=== PATIENT | female | born 1935 | race Caucasian/White ===

== ENCOUNTER 2018-08-28 05:55 | Emergency (ER) | payer OTHER ==
[2018-08-28 06:42] LABS: Absolute Lymphocytes (CBC) 1.6 K/uL (0.7-4.9); Absolute Monocytes 0.7 K/uL (0.1-1.3); Absolute Neutrophil 4.5 K/uL (1.8-8.0); Basophils % 0.7 % (0-1.3); Eosinophils % 2.2 % (0-4.4); Lymphocytes % 22.4 % (15.3-44.8); MCH 34.4 pg (27.0-35.0); MCV 100.3 fL (80-100); MPV 7.8 fL (7.6-11.3); Monocytes % 10.5 % (3.3-12.3); RBC Red Blood Cell Count 3.88 M/uL (3.86-4.86)
[2018-08-28 06:51] LABS: Protime INR 1.03
[2018-08-28 07:12] LABS: ALT/SGPT 46 U/L (12-78); AST/SGOT 35 U/L (15-37); Albumin 3.3 g/dL (3.4-5.0); Alkaline Phosphatase 55 U/L (45-117); BUN Blood Urea Nitrogen 15 mg/dL (7-18); Bicarbonate 28 mmol/L (21-32); Bilirubin Direct 0.2 mg/dL (0-0.2); Bilirubin Total 0.6 mg/dL (0.2-1.0); Glucose Level 87 mg/dL (74-106); Magnesium 1.8 mg/dL (1.8-2.4); NT PRO-BNP 327 pg/mL (<450); Potassium 3.5 mmol/L (3.5-5.1); Protein, Total 6.2 g/dL (6.4-8.2); Sodium Level 143 mmol/L (136-145); Troponin (Emerg Dept Use Only) < 0.02 ng/mL (0.0-0.045)
--- NOTE | 2018-08-28 07:22 | ER ---
Nurse's Notes [facility] Name: Francy Griffiths Age: 83 yrs Sex: Female : 1935 Arrival Date: 08/28/2018 Time: 05:59 Bed 6 Private MD: Diagnosis: Essential (primary) hypertension;Hypoglycemia, unspecified Presentation: 08/28 06:04 Presenting complaint: EMS states: "she says she has been feeling week for the past day. jd3 her blood sugar was a 71 on arrival so she ate a chocolate bar. she says that below 120 is low for her surgar. she also is reporting that she is having some difficulty breathing. she denies any pain.". Transition of care: patient was not received from another setting of care. Onset of symptoms was August 28, 2018. Risk Assessment: Do you want to hurt yourself or someone else? Patient reports no desire to harm self or others. Initial Sepsis Screen: Does the patient meet any 2 criteria? No. Patient's initial sepsis screen is negative. Does the patient have a suspected source of infection? No. Patient's initial sepsis screen is negative. Care prior to arrival: Glucose check: 71. 06:04 Method Of Arrival: EMS: [facility] jd3 06:04 Acuity: DIONTE 3 jd3 Triage Assessment: 06:18 Respiratory: Onset: The symptoms/episode began/occurred yesterday, the patient has mild jd3 shortness of breath. Historical: - Allergies: 06:14 Iodine; jd3 06:14 Sulfa (Sulfonamide Antibiotics); jd3 06:14 Codeine; jd3 - Home Meds: 06:14 Folic Acid Oral [Active]; furosemide 40 mg Oral tab 1 tab 2 times per day [Active]; jd3 levothyroxine 100 mcg tab 1 tab once daily [Active]; Methotrexate Sodium Oral [Active]; prednisone 1 mg Oral tab 2 tabs once daily [Active]; pravastatin 40 mg Oral tab 1 tab once daily [Active]; Klor-Con M20 20 mEq Oral TbTQ 1 tab once daily [Active]; lisinopril 5 mg Oral tab 1 tab once daily [Active]; Mesnex Oral [Active]; Potassium Chloride Oral [Active]; - PMHx: 06:14 Arthritis; Rheumatoid Arthritis; Osteoporosis; Hypertension; Hyperlipidemia; jd3 Hypothyroidism; - PSHx: 06:14 abd sx; 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 - Social history:: Smoking status: Patient uses tobacco products, smokes one pack cigarettes per day. - Ebola Screening: : Patient negative for fever greater than or equal to 101.5 degrees Fahrenheit, and additional compatible Ebola Virus Disease symptoms. Screenin:17 Abuse screen: Denies threats or abuse. Nutritional screening: No deficits noted. jd3 Tuberculosis screening: No symptoms or risk factors identified. Fall Risk Ambulatory Aid- None/Bed Rest/Nurse Assist (0 pts). Gait- Weak (10 pts.). Mental Status- Oriented to own ability (0 pts). Total Lua Fall Scale indicates No Risk (0-24 pts). Assessment: 06:16 General: Appears in no apparent distress. uncomfortable, Behavior is calm, cooperative, jd3 appropriate for age. Pain: Denies pain. Cardiovascular: Capillary refill < 3 seconds Patient's skin is warm and dry. Rhythm is sinus bradycardia. Respiratory: Reports shortness of breath at rest Airway is patent Respiratory effort is even, unlabored, Respiratory pattern is regular, symmetrical, Breath sounds are clear bilaterally. GI: No signs and/or symptoms were reported involving the gastrointestinal system. : No signs and/or symptoms were reported regarding the genitourinary system. EENT: No signs and/or symptoms were reported regarding the EENT system. Derm: Skin is intact, Skin is dry, Skin is normal, Skin temperature is warm. Musculoskeletal: Circulation, motion, and sensation intact. Range of motion: intact in all extremities. 07:00 Reassessment: RECD REPORT FROM FRANK LINDSEY. 83YO WF P/W SUBJECTIVE HYPOGLYCEMIA. NOW bp DENIES ACUTE S/S. 07:29 Reassessment: PT D/C HOME VIA W/C WITH FAMILY, DX WITH HTN AND HYPOGLYCEMIA. bp Vital Signs: 06:15 BP 167 / 67; Pulse 47; Resp 17 S; Temp 97.9(O); Pulse Ox 98% on R/A; Weight 65.77 kg jd3 (R); Height 4 ft. 9 in. (144.78 cm) (R); Pain 0/10; 07:07 BP 187 / 58; Pulse 40; Resp 13; Pulse Ox 98% ; bp 06:15 Body Mass Index 31.38 (65.77 kg, 144.78 cm) jd3 ED Course: 05:59 Patient arrived in ED. 06:03 Dilan Luo, RN is Primary Nurse. jd3 06:07 Michael Montenegro PA is PHCP. jr8 06:07 Ruben Velázquez MD is Attending Physician. jr8 06:07 Triage completed. jd3 06:16 Arm band placed on. EKG completed in triage. Results shown to MD. jd3 06:18 Patient has correct armband on for positive identification. Bed in low position. Call j light in reach. Side rails up X2. Adult w/ patient. 06:18 Inserted saline lock: 20 gauge in left forearm, using aseptic technique. Blood oe collected. 06:41 X-ray completed. Portable x-ray completed in exam room. Patient tolerated procedure ag1 well. 06:41 XRAY Chest (1 view) In Process Unspecified. EDMS 07:30 No provider procedures requiring assistance completed. IV discontinued, intact, bp bleeding controlled, No redness/swelling at site. Pressure dressing applied. Administered Medications: No medications were administered Point of Care Testing: Blood Glucose: 06:21 Blood Glucose: 81 mg/dL; ea Ranges: Outcome: 07:21 Discharge ordered by . jr8 07:30 Discharged to home via wheelchair, with family. bp 07:30 Condition: stable 07:30 Discharge instructions given to patient, family, Instructed on discharge instructions, follow up and referral plans. Demonstrated understanding of instructions, follow-up care. 07:31 Patient left the ED. bp Signatures: Dispatcher [employer] EDMA Sheryl Coppola, RN CÉSAR Michael Montenegro PA PA jr8 Jeannine Willingham ag1 Boby Duval Elena, RN RN ea Davies, Jonathon, RN RN jd3 Peltier, Brian, RN RN bp Corrections: (The following items were deleted from the chart) 06:18 06:16 Cardiovascular: Heart tones S1 S2 present Capillary refill < 3 seconds Patient's jd3 skin is warm and dry. Rhythm is sinus bradycardia j
--- NOTE | 2018-08-28 07:22 | EDPHYS ---
Physician Documentation [facility] Name: Francy Griffiths Age: 83 yrs Sex: Female : 1935 Arrival Date: 08/28/2018 Time: 05:59 Bed 6 Private MD: ED Physician Ruben Velázquez HPI: 08/28 06:51 This 83 yrs old Female presents to ER via EMS with complaints of Dizzy, jr8 nausea, low blood sugar. 06:51 Patient stated that around midnight started to feel "woozy". Stated that she was dizzy jr8 and nauseated. Noticed that her blood sugar was getting low and her blood pressure was elevating. Has had this in past. Denies any other symptoms. Feeling back to baseline now . Severity of symptoms: At their worst the symptoms were moderate in the emergency department the symptoms have resolved. The patient has experienced similar episodes in the past, a few times. The patient has not recently seen a physician. Historical: - Allergies: 06:14 Iodine; jd3 06:14 Sulfa (Sulfonamide Antibiotics); jd3 06:14 Codeine; jd3 - Home Meds: 06:14 Folic Acid Oral [Active]; furosemide 40 mg Oral tab 1 tab 2 times per day [Active]; jd3 levothyroxine 100 mcg tab 1 tab once daily [Active]; Methotrexate Sodium Oral [Active]; prednisone 1 mg Oral tab 2 tabs once daily [Active]; pravastatin 40 mg Oral tab 1 tab once daily [Active]; Klor-Con M20 20 mEq Oral TbTQ 1 tab once daily [Active]; lisinopril 5 mg Oral tab 1 tab once daily [Active]; Mesnex Oral [Active]; Potassium Chloride Oral [Active]; - PMHx: 06:14 Arthritis; Rheumatoid Arthritis; Osteoporosis; Hypertension; Hyperlipidemia; jd3 Hypothyroidism; - PSHx: 06:14 abd sx; 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 - Social history:: Smoking status: Patient uses tobacco products, smokes one pack cigarettes per day. - Ebola Screening: : Patient negative for fever greater than or equal to 101.5 degrees Fahrenheit, and additional compatible Ebola Virus Disease symptoms. ROS: 06:51 Eyes: Negative for injury, pain, redness, and discharge, ENT: Negative for injury, jr8 pain, and discharge, Neck: Negative for injury, pain, and swelling, Cardiovascular: Negative for chest pain, palpitations, and edema, Respiratory: Negative for shortness of breath, cough, wheezing, and pleuritic chest pain, Back: Negative for injury and pain, MS/Extremity: Negative for injury and deformity, Skin: Negative for injury, rash, and discoloration. 06:51 Abdomen/GI: Positive for nausea, Negative for abdominal pain, vomiting, diarrhea, abdominal cramps, abdominal distension, hematemesis, black/tarry stool, rectal bleeding, bowel incontinence, flatulence. 06:51 Neuro: Positive for dizziness, Negative for altered mental status, headache, loss of consciousness, numbness, seizure activity, speech changes, syncope, tingling, visual changes, weakness. Exam: 06:51 Eyes: Pupils equal round and reactive to light, extra-ocular motions intact. Lids and jr8 lashes normal. Conjunctiva and sclera are non-icteric and not injected. Cornea within normal limits. Periorbital areas with no swelling, redness, or edema. ENT: Nares patent. No nasal discharge, no septal abnormalities noted. Tympanic membranes are normal and external auditory canals are clear. Oropharynx with no redness, swelling, or masses, exudates, or evidence of obstruction, uvula midline. Mucous membranes moist. Neck: Trachea midline, no thyromegaly or masses palpated, and no cervical lymphadenopathy. Supple, full range of motion without nuchal rigidity, or vertebral point tenderness. No Meningismus. Respiratory: Lungs have equal breath sounds bilaterally, clear to auscultation and percussion. No rales, rhonchi or wheezes noted. No increased work of breathing, no retractions or nasal flaring. Abdomen/GI: Soft, non-tender, with normal bowel sounds. No distension or tympany. No guarding or rebound. No evidence of tenderness throughout. Back: No spinal tenderness. No costovertebral tenderness. Full range of motion. Skin: Warm, dry with normal turgor. Normal color with no rashes, no lesions, and no evidence of cellulitis. MS/ Extremity: Pulses equal, no cyanosis. Neurovascular intact. Full, normal range of motion. Neuro: Awake and alert, GCS 15, oriented to person, place, time, and situation. Cranial nerves II-XII grossly intact. Motor strength 5/5 in all extremities. Sensory grossly intact. Cerebellar exam normal. Normal gait. 06:51 Cardiovascular: Rate: bradycardic, Rhythm: regular, Pulses: Pulses are 2+ in right radial artery and left radial artery. Heart sounds: murmur, systolic, grade 3 over 6, Patient with known history of murmur , Edema: is not appreciated. Vital Signs: 06:15 BP 167 / 67; Pulse 47; Resp 17 S; Temp 97.9(O); Pulse Ox 98% on R/A; Weight 65.77 kg jd3 (R); Height 4 ft. 9 in. (144.78 cm) (R); Pain 0/10; 07:07 BP 187 / 58; Pulse 40; Resp 13; Pulse Ox 98% ; bp 06:15 Body Mass Index 31.38 (65.77 kg, 144.78 cm) jd3 MDM: 06:07 Patient medically screened. jr8 07:19 Data reviewed: vital signs, nurses notes, lab test result(s), EKG, radiologic studies, jr8 plain films, and as a result, I will discharge patient. Data interpreted: Pulse oximetry: on room air is 98 %. Interpretation: normal. Counseling: I had a detailed discussion with the patient and/or guardian regarding: the historical points, exam findings, and any diagnostic results supporting the discharge/admit diagnosis, lab results, radiology results, the need for outpatient follow up, a family practitioner, to return to the emergency department if symptoms worsen or persist or if there are any questions or concerns that arise at home. ED course: Patient asymptomatic. No acute findings on labs. Will send home to f/u. Knows to come back if worse . 08/28 06:24 Order name: Basic Metabolic Panel; Complete Time: 07:15 jr8 08/28 06:24 Order name: CBC with Diff; Complete Time: 06:50 8 08/28 06:24 Order name: LFT's; Complete Time: 07:15 jr8 08/28 06:24 Order name: Magnesium; Complete Time: 07:15 jr8 08/28 06:24 Order name: NT PRO-BNP; Complete Time: 07:15 jr8 08/28 06:24 Order name: PT-INR; Complete Time: 07:01 08/28 06:24 Order name: Troponin (emerg Dept Use Only); Complete Time: 07:15 08/28 06:24 Order name: XRAY Chest (1 view) 08/28 06:24 Order name: EKG; Complete Time: 06:25 08/28 06:24 Order name: Cardiac monitoring; Complete Time: 06:30 08/28 06:24 Order name: EKG - Nurse/Tech; Complete Time: 06:30 08/28 06:24 Order name: IV Saline Lock; Complete Time: 06:30 08/28 06:24 Order name: Labs collected and sent; Complete Time: 06:32 08/28 06:24 Order name: O2 Per Protocol; Complete Time: :30 08/28 06:24 Order name: O2 Sat Monitoring; Complete Time: 06:30 Administered Medications: No medications were administered Point of Care Testing: Blood Glucose: 06:21 Blood Glucose: 81 mg/dL; ea Ranges: Critical Glucose Levels:Adult <50 mg/dl or >400 mg/dl <40 mg/dl or >180 mg/dl Disposition: 08/29 06:44 Co-signature as Attending Physician, Ruben Velázquez MD I agree with the assessment and tw4 plan of care. Disposition: 08/28/18 07:21 Discharged to Home. Impression: Essential (primary) hypertension, Hypoglycemia, unspecified. - Condition is Stable. - Discharge Instructions: Hypertension, Hypoglycemia. - Medication Reconciliation Form, Thank You Letter, Antibiotic Education, Prescription Opioid Use form. - Follow up: Private Physician; When: 2 - 3 days; Reason: Recheck today's complaints, Continuance of care, Re-evaluation by your physician. - Problem is new. - Symptoms have improved. Signatures: Dispatcher [employer] EDMS Michael Montenegro PA PA jr8 Dilan Luo RN RN Bubba Moses RN RN bp Wadley, Terrence, MD MD tw4 Corrections: (The following items were deleted from the chart) 08/28 07:31 07:21 08/28/2018 07:21 Discharged to Home. Impression: Essential (primary) bp hypertension; Hypoglycemia, unspecified. Condition is Stable. Forms are Medication Reconciliation Form, Thank You Letter, Antibiotic Education, Prescription Opioid Use. Follow up: Private Physician; When: 2 - 3 days; Reason: Recheck today's complaints, Continuance of care, Re-evaluation by your physician. Problem is new. Symptoms have improved. jr8
[2018-08-28 07:35] VITALS: TEMP 97.9; O2SAT 98
[2018-08-28 07:36] VITALS: BP 187/58
--- NOTE | 2018-08-28 08:59 | RAD REPORT ---
EXAM DESCRIPTION: Jayce Single View08/28/2018 6:43 am CLINICAL HISTORY: Chest pain COMPARISON: none FINDINGS: The lungs appear clear of acute infiltrate. Calcified granuloma is present in the left gucci ng. The heart is normal size IMPRESSION: No acute abnormalities displayed
--- NOTE | 2018-08-29 07:05 | EKG ---
Test Date: 2018-08-28 Test Time: 06:01:58 First [place]: HAKEEM MEASUREMENT RESULTS: Intervals: Rate: 43 VA: 144 QRSD: 98 QT: 482 QTc: 407 [place]: P: VA: 144 QRS: 66 T: 81 INTERPRETIVE STATEMENTS: Marked sinus bradycardia with sinus arrhythmia Abnormal ECG Compared to ECG 12/29/2017 14:09:37 Atrial premature complex(es) no longer present Myocardial infarct finding no longer present Electronically Signed On 08-29-18 07:04:25 CDT by Rudy Young
== END 2018-08-28 07:31 | disposition home or self-care (01) ==
LOC: ER 05:55
DX: I10 Essential (primary) hypertension (principal); E16.2 Hypoglycemia, unspecified; E78.5 Hyperlipidemia, unspecified; E03.9 Hypothyroidism, unspecified; F17.210 Nicotine dependence, cigarettes, uncomplicated; Z88.2 Allergy status to sulfonamides; Z88.5 Allergy status to narcotic agent; Z91.048 Other nonmedicinal substance allergy status
CPT/HCPCS: 36415; 71045; 80048; 80076; 82962; 83735; 83880; 84484; 85025; 85610; 93005; 99284

== ENCOUNTER 2020-02-20 15:38 | Emergency (ER) | payer OTHER ==
--- OUTSIDE RECORDS SUMMARY | 2020-02-20 15:40 | XMS REPORT ---
:1935 Author Organization e[employer] Care Team Providers Name Role Phone Gayle Yanira Provider Role Unavailable Allergies, Adverse Reactions, Alerts Substance Reaction Event Type N.K.D.A. Info Not Available Non Drug Allergy Problems Problem Type Condition Code Onset Dates Condition Statu s Assessment DNR (do not resuscitate) discussion Z71.89 Active Problem At risk for falls Z91.81 Active Problem Irregular heart beats I49.9 Active Problem Cerebrovascular accident I63.9 Act amanda Problem Systolic murmur R01.1 Active Problem Hypokalemia E87.6 Active Problem Chronic pain syndrome G89.4 Active Problem Hypertension, unspecified type I10 Active Problem Allergic rhinitis, unspecified J30.9 Active seasonality, unspecified trigger Problem Rheumatoid arthritis, involving M06.9 Active unspecified site, unspecified rheumatoid factor presence Problem Hypoglycemia E16.2 Active Problem Dysuria R30.0 Active Problem Peripheral vascular disease I73.9 Active Problem Weight loss R63.4 Active Problem DNR (do not resuscitate) discussion Z71.89 Active Problem Tremor R25.1 Active Problem Rash R21 Active Problem Dizziness R42 Active Problem Depression with anxiety F41.8 Acti ve Problem Rash and nonspecific skin eruption R21 Active Problem Pain in right knee M25.561 Active Problem Seasonal allergies J30.2 Active Problem Osteoporosis M81.0 Active Problem Sinus problem J34.9 Active Problem Atherosclerosis of right carotid I65.21 Active artery Problem Chronic obstructive pulmonary J44.9 Active disease, unspecified COPD type Problem Hypothyroidism, unspecified type E03.9 Active Problem Hyperlipidemia, unspecified E78.5 Active hyperlipidemia type Medications Medication Code Code Instructions Start End Status Dosage System Date Date Prednisone ND 43097005457 1 MG Orally Active 1 tab let Once a day with food or milk Methotrexate NDC 0 Orally as Active as direc ai directed Synthroid ND 88157149107 88 MCG Orally Active 1 ta blet on Once a day an empty stomach in the morning Pravastatin ND 28169474276 20 MG Orally Active 1 t ablet in Sodium Once a day evening Furosemide ND 96512628494 40 MG Orally Active 1 ta blet Once a day Sertraline HCl ND 42591125115 50 MG Orally Active 1 tablet Once a day for depression/anxi ety Blood Glucose ND 0 as directed Aug 13, Active as di rected Test Strip Test BS once 2018 (DISPENS E daily BLOOD GLUCOSE TEST STRIPS OF RECORD) Meclizine HCl ND 70686221407 25 MG Orally 4x Active 1 tablet as a day as needed needed Potassium [facility] 21920573034 20 MEQ Orally Active 1 ca psule Chloride Once a day Lisinopril ND 84386231526 20 MG Orally Active 1 ta blet Once a day Results No Known Results Summary Purpose eClinicalWorks Submission
--- OUTSIDE RECORDS SUMMARY | 2020-02-20 15:40 | XMS REPORT ---
:1935 [facility] Care Team Providers Name Role Phone Gayle Yanira Provider Role Unavailable Allergies, Adverse Reactions, Alerts Substance Reaction Event Type N.K.D.A. Info Not Available Non Drug Allergy Problems Problem Type Condition Code Onset Dates Condition Statu s Assessment Hypertension, unspecified type I10 Active Assessment Hypoglycemia E16.2 Active Assessment Dizziness R42 Active Assessment Rash and nonspecific skin eruption R21 Active Assessment Abnormal urinalysis R82.90 Active Assessment Acute right-sided low back pain M54.5 Active without sciatica Problem At risk for falls Z91.81 Active [...] Rash and nonspecific skin eruption R21 Active Assessment Hypothyroidism, unspecified type E03.9 Active Problem Pain in right knee M25.561 Active Assessment Hyperlipidemia, unspecified E78.5 Active hyperlipidemia type Problem Seasonal allergies J30.2 Active Assessment Tremor R25.1 Active Problem Osteoporosis M81.0 Active Assessment Rheumatoid arthritis, involving M06.9 Active unspecified site, unspecified rheumatoid factor presence Problem Sinus problem J34.9 Active Assessment Depression with anxiety F41.8 Acti ve Problem Atherosclerosis of right carotid I65.21 Active artery Assessment Allergic rhinitis, unspecified J30.9 Active seasonality, unspecified trigger Problem Chronic obstructive pulmonary J44.9 Active disease, unspecified COPD type Problem Hypothyroidism, unspecified type E03.9 Active Problem Hyperlipidemia, unspecified E78.5 Active hyperlipidemia type Medications Medication Code Code Instructions Start End Status Dosage System Date Date Synthroid [facility] 42497799335 88 MCG Orally Active 1 ta blet on Once a day an empty stomach in the morning Meclizine HCl ND 90941348234 25 MG Orally Dec 18, Active 1 tablet as Twice daily 2019 needed for dizziness Lisinopril ND 85729500125 20 MG Orally Active 1 ta blet Once a day Ketoconazole ND 07127827637 2 % Externally Dec 18December Active 1 application Once a day 2019, to affected 2019 area(s) Pravastatin ND 94410306428 20 MG Orally Active 1 t ablet in Sodium Once a day evening Meclizine HCl ND 84539725021 25 MG Orally 4x Active 1 tablet as a day as needed needed Sertraline HCl ND 33166670990 50 MG Orally Active 1 tablet Once a day for depression/anxi ety Prednisone ND 16986983091 1 MG Orally Active 1 tab let with Once a day food or milk Furosemide ND 03180926729 40 MG Orally Active 1 ta blet Once a day Methotrexate NDC 0 Orally as Active as direc ai directed Potassium [facility] 39254558832 20 MEQ Orally Active 1 ca psule Chloride Once a day Blood Glucose NDC 0 as directed Aug 13, Active as di rected Test Strip Test BS once 2018 (DISPENS E daily BLOOD GLUCOSE TEST STRIPS OF RECORD) Results No Known Results Summary Purpose eClinicalWorks Submission
--- OUTSIDE RECORDS SUMMARY | 2020-02-20 15:40 | XMS REPORT ---
:1935 Author Organization eClinicalWorks Care Team Providers Name Role Phone Yanira Araujo Provider Role Unavailable Allergies No Known Allergies Problems Problem Type Condition Code Onset Dates Condition Statu s Assessment Hypertension, unspecified type I10 Active Problem At risk for falls Z91.81 [...] Start End Status Dosage System Date Date Potassium NDC 56599461390 20 MEQ Orally Active 1 ca psule Chloride Once a day Results No Known Results Summary Purpose eClinicalWorks Submission
--- OUTSIDE RECORDS SUMMARY | 2020-02-20 15:40 | XMS REPORT ---
:1935 [facility] Care Team Providers Name Role Phone Yanira Araujo Provider Role Unavailable Allergies, Adverse Reactions, Alerts Substance Reaction Event Type N.K.D.A. Info Not Available Non Drug Allergy Problems Problem Type Condition Code Onset Dates Condition Statu s Assessment Tremor R25.1 Active Assessment Allergic rhinitis, unspecified J30.9 Active seasonality, unspecified trigger Assessment Hypothyroidism, unspecified type E03.9 Active Assessment Rheumatoid arthritis, involving M06.9 Active unspecified site, unspecified rheumatoid factor presence Assessment Hyperlipidemia, unspecified E78.5 Active hyperlipidemia type Assessment Hypoglycemia E16.2 Active Assessment Hypertension, unspecified type I10 Active Problem At risk for falls Z91.81 Active Problem Cerebrovascular accident I63.9 Act amanda Problem Chronic obstructive pulmonary J44.9 Active disease, unspecified COPD type Problem Systolic murmur R01.1 Active Problem Chronic pain syndrome G89.4 Active Problem Hypertension, unspecified type I10 Active Problem Hypokalemia E87.6 Active Problem Rheumatoid arthritis, involving M06.9 Active unspecified site, unspecified rheumatoid factor presence Problem Dysuria R30.0 Active Problem Depression with anxiety F41.8 Acti ve Problem Peripheral vascular disease I73.9 Active Problem Weight loss R63.4 Active Problem Hypoglycemia E16.2 Active Problem Tremor R25.1 Active Problem Dizziness R42 Active Problem Allergic rhinitis, unspecified J30.9 Active seasonality, unspecified trigger Problem Rash and nonspecific skin eruption R21 Active Problem Rash R21 Active Problem Pain in right knee M25.561 Active Assessment Depression with anxiety F41.8 Acti ve Problem Seasonal allergies J30.2 Active Problem Osteoporosis M81.0 Active Problem Sinus problem J34.9 Active Problem Hyperlipidemia, unspecified E78.5 Active hyperlipidemia type Problem Atherosclerosis of right carotid I65.21 Active artery Problem Irregular heart beats I49.9 Active Problem Hypothyroidism, unspecified type E03.9 Active Medications Medication Code Code Instructions Start End Status Dosage System Date Date Meclizine HCl [facility] 28511860466 25 MG Orally 4x Active 1 tablet as a day as needed needed Pravastatin ND 59627194815 20 MG Orally Active 1 t ablet in Sodium Once a day evening Prednisone ND 00507143906 1 MG Orally Active 1 tab let Once a day with food or milk Methotrexate NDC 0 Orally as Active as direc ai directed Sertraline HCl ND 37608334811 50 MG Orally Active 1 tablet Once a day for depression/anxi ety Synthroid ND 59096478982 88 MCG Orally Active 1 ta blet on Once a day an empty stomach in the morning Lisinopril ND 83480668741 20 MG Orally Active 1 ta blet Once a day Furosemide ND 01801309946 40 MG Orally Active 1 ta blet Once a day Blood Glucose NDC 0 as directed Aug 13, Active as di rected Test Strip Test BS once 2018 (DISPENS E daily BLOOD GLUCOSE TEST STRIPS OF RECORD) Potassium [facility] 42627192054 20 MEQ Orally Active 1 ca psule Chloride Once a day Results No Known Results Summary Purpose eClinicalWorks Submission
--- OUTSIDE RECORDS SUMMARY | 2020-02-20 15:40 | XMS REPORT | Encounter Summary ---
:1935 Author Care Team Providers Name Role Phone Dr. Miguel A Grady Primary Care Provider Unavailable Yanira Araujo MD Primary Care Provider [phone] Scott Rainey MD Process Camera Operator [phone] Reason for Visit Congestive heart failure; Hyperlipidemia ; Hypothyroidism Instructions 1. Hypothyroidism 2. Congestive heart failure furosemide 40 mg tablet 3. Hyperlipidemia high cholesterol: care ins tructions pravastatin 20 mg tablet 4. Essential hypertension lisinopril 20 mg tablet Discussion Note Telephonic visit completed with day luna. Discussed with patient to continue taking her meds as prescribed. Patient r eport she has encough meds and does not need any refills at this time. encourgaed day luna to stay home during this time due to the [place] outbreak ,patient verbalized unde rstanding. Plan of Care Reminders Provider Appointments None recorded. Lab None recorded. Referral None recorded. Procedures None recorded. Surgeries None recorded. Imaging None recorded. Medications Name Start Date furosemide 40 mg tablet Take 1 tablet every day by oral route. levothyroxine 88 mcg capsule Take 1 capsule every day by oral route before meals. lisinopril 20 mg tablet Take 1 tablet every day by oral route. methotrexate 2.5 mg tablet Take 10 mg every week by oral route. pravastatin 20 mg tablet Take 1 tablet every day by oral route. Medications Administered None recorded. Vitals Height Weight BMI 4 ft 9 in 138 lbs 29.9 kg/m2 Results Lab Results None recorded. 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 Hypothyroidism Active 01/17/2020 Hyperlipidemia Active 01/17/2020 Essential Hypertension Active 01/17/2020 Congestive Heart Failure Active 01/17/2020 Rheumatoid Arthritis Active 01/17/2020 Fall Active 01/17/2020 Procedures Date Name Performed by Procedure on Brain Information not avai lable Uterine Myomectomy Information not avai lable Spinal Disk Surgery Add-on Information n ot available Vaccine List Vaccine Type Influenza A monovalent (H5N1), ADJUVANTE D-2013 08/01/2019 pneumococcal polysaccharide PPV23 09/01/2017 Social History Tobacco Smoking Status Heavy Tobacco Smoker (1/2 PPD) Past Encounters 01/23/2020 Hypothyroidism; Congestive Heart Failure ; Hyperlipidemia; Essential Hypertension Cheryl Velarde FIRE CONTROL TECHNICIAN B: [address] [facility], [address], [place] [address], Ph. History of Present Illness Note: I confirm that I received verbal consent from the patient for the virtual visit. {{yes*|no}} Review of Systems Comprehensive General Adult ROS Reported By: Patient Constitutional: Constitutional: no fever, no night sweats, no significant weight gain, no significant weight loss, no exercise intolerance Eyes: Eyes: no dry eyes, no vision change, no irritation ENMT: Ears: no difficulty hearing, no ear pain. Nose: no frequent nosebleeds, no nose problems , no sinus problems. Mouth/Throat: no sore throat, no bleeding gums, no snoring, no dry mouth, no mouth ulcers, no oral abnorm alities, no teeth problems Cardiovascular: Cardiovascular: no chest josh n, no arm pain on exertion, no shortness of breath when wal obinna, no shortness of breath when lying down, no palpitations, no known heart murmur, no lightheadedness Respiratory: Respiratory: no wheezing, no shortness of breath, no coughing up blood, no sleep apnea, co ugh Gastrointestinal: Gastrointestinal: no abdomin al pain, no nausea, no vomiting, no constipation, normal appe tite, no diarrhea, not vomiting blood, no dyspepsia, no GERD Genitourinary: Genitourinary: no incontinen ce, no difficulty urinating, no hematuria, no increased freq uency Musculoskeletal: Musculoskeletal: no muscle a ches, no muscle weakness, no arthralgias/joint pain, no b ack pain, no swelling in the extremities Integumentary: Skin: no abnormal mole, no j aundice, no rashes, no laceration Neurologic: Neurologic: no loss of consc iousness, no weakness, no numbness, no seizures, no di zziness, no migraines, no headaches, no tremor Psychiatric: Psych: no depression, no sle ep disturbances, feeling safe in a relationship, no alcohol abu se, no anxiety, no hallucinations, no suicidal thoughts Endocrine: Endocrine: no fatigue Hematologic/Lymphatic: Hematologic/Lymphatic no swo llen glands, no bruising, no excessive bleeding Allergic/Immunologic: Allergy/Immunologic: no sinu s pressure, no itching, no hives, no frequent sneezing, runny nose Physical Exam None recorded."
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
--- OUTSIDE RECORDS SUMMARY | 2020-02-20 15:41 | XMS REPORT ---
:1935 [facility] Care Team Providers Name Role Phone Gayle Yanira Provider Role Unavailable Allergies, Adverse Reactions, Alerts Substance Reaction Event Type N.K.D.A. Info Not Available Non Drug Allergy Problems Problem Type Condition Code Onset Dates Condition Statu s Assessment Rheumatoid arthritis, involving M06.9 Active unspecified site, unspecified rheumatoid factor presence Assessment Tremor R25.1 Active Assessment Hyperlipidemia, unspecified E78.5 Active hyperlipidemia type Assessment Hypothyroidism, unspecified type E03.9 Active Assessment Hypoglycemia E16.2 Active Assessment Hypertension, unspecified [...] and nonspecific skin eruption R21 Active Assessment Depression with anxiety F41.8 Acti ve Problem Pain in right knee M25.561 Active Assessment Allergic rhinitis, unspecified J30.9 Active seasonality, unspecified trigger Problem Seasonal allergies J30.2 Active Problem Osteoporosis M81.0 Active Problem Sinus problem J34.9 Active Problem Atherosclerosis of right carotid I65.21 Active artery Problem Chronic obstructive pulmonary J44.9 Active disease, unspecified COPD type Problem Hypothyroidism, unspecified type E03.9 Active Problem Hyperlipidemia, unspecified E78.5 Active hyperlipidemia type Medications Medication Code Code Instructions Start End Status Dosage System Date Date Pravastatin ND 49153774327 20 MG Orally Active 1 t ablet in Sodium Once a day evening Prednisone ND 05314239288 1 MG Orally Active 1 tab let Once a day with food or milk Blood Glucose NDC 0 as directed Aug 13, Active as di rected Test Strip Test BS once 2019 (DISPENS E daily BLOOD GLUCOSE TEST STRIPS OF RECORD) Meclizine HCl ND 11593436978 25 MG Orally 4x Active 1 tablet as a day as needed needed Potassium ND 28073112591 20 MEQ Orally Nov 14, Active 1 ca psule Chloride Once a day 2020 Furosemide ND 75102913584 40 MG Orally Active 1 ta blet Once a day Synthroid ND 31434486344 88 MCG Orally Active 1 ta blet on Once a day an empty stomach in the morning Sertraline HCl ND 54871315711 50 MG Orally Active 1 tablet Once a day for depression/anxi ety Meclizine HCl ND 28544386309 25 MG Orally Dec 18, Active 1 tablet as Twice daily 2019 needed for dizziness Methotrexate ND 0 Orally as Active as direc ai directed Lisinopril ND 56550400417 20 MG Orally Active 1 ta blet Once a day Results No Known Results Summary Purpose eClinicalWorks Submission
--- NOTE | 2020-02-20 16:34 | RAD REPORT ---
EXAM DESCRIPTION: RAD - Tib Fib Right - 02/20/2020 4:26 pm CLINICAL HISTORY: PAIN COMPARISON: No comparisons FINDINGS: Prominent soft tissue swelling is present, greatest along the lateral aspect of the ankle. No fracture or dislocation evident. Atherosclerosis.
--- NOTE | 2020-02-20 19:14 | ER ---
Nurse's Notes [facility] Name: Francy Griffiths Age: 84 yrs Sex: Female : 1935 Arrival Date: 02/20/2020 Time: 15:43 Bed 16 Private MD: Diagnosis: Pain in right leg;Pain in right lower leg Presentation: 02/19 15:49 Chief complaint: Patient states: "I am unable to put any weight on my right foot, it vc hurts too bad. I am worried I may have a blood clot." EMS states: "Patient complains she has had numbness, swelling, and pain to her right foot for the last 2-4 days.". Coronavirus screen: Proceed with normal triage. Ebola Screen: No symptoms or risks identified at this time. Initial Sepsis Screen: Does the patient meet any 2 criteria? No. Patient's initial sepsis screen is negative. Does the patient have a suspected source of infection? No. Patient's initial sepsis screen is negative. Risk Assessment: Do you want to hurt yourself or someone else? Patient reports no desire to harm self or others. Onset of symptoms is unknown. 15:49 Method Of Arrival: EMS: [facility] vc 15:49 Acuity: DIONTE 3 vc Triage Assessment: 16:00 General: Appears in no apparent distress. uncomfortable, Behavior is calm, cooperative, vc appropriate for age. Historical: - Allergies: 15:56 Codeine; vc 15:56 Iodine; vc 15:56 Sulfa (Sulfonamide Antibiotics); vc - Home Meds: 17:20 meclizine 25 mg Oral tab 1 tab 2 times per day [Active]; prednisone 1 mg Oral tab 2 vc tabs 2 times per day [Active]; potassium chloride 20 mEq oral TbER 1 tab once daily [Active]; 17:20 levothyroxine 88 mcg oral tab [Active]; lisinopril 20 mg oral tab [Active]; vc methotrexate sodium 2.5 mg oral tab once wkly [Active]; folic acid 1 mg oral tab once daily [Active]; pravastatin 20 mg oral tab nightly [Active]; furosemide 40 mg Oral tab 1 tab once daily [Active]; sertraline 50 mg oral tab 1 tab once daily [Active]; - PMHx: 15:56 Arthritis; Rheumatoid Arthritis; Osteoporosis; Hyperlipidemia; Hypertension; vc Hypothyroidism; bradycardic; 15:57 hemaphilia; Heart Murmur; vc - PSHx: 15:56 back surgery; vc 15:57 Hysterectomy; vc - Immunization history:: Adult Immunizations up to date, Pneumococcal vaccine is up to date, Flu vaccine is up to date. - Social history:: Smoking status: Patient reports the use of cigarette tobacco products, smokes one-half pack cigarettes per day. Screenin:00 Abuse screen: Denies threats or abuse. Nutritional screening: No deficits noted. vc Tuberculosis screening: No symptoms or risk factors identified. Fall Risk None identified. Assessment: 16:12 Reassessment: Point of Contact Shaq (SON) : [phone]. ss 16:30 General: Appears in no apparent distress. uncomfortable, Behavior is calm, cooperative, vc appropriate for age. Pain: Complains of pain in anterior aspect of right ankle and right forde. Neuro: Level of Consciousness is awake, alert, obeys commands, Oriented to person, place, time, situation. Cardiovascular: Patient's skin is warm and dry. Respiratory: Respiratory effort is even, unlabored, Respiratory pattern is regular, symmetrical. GI: No signs and/or symptoms were reported involving the gastrointestinal system. : No signs and/or symptoms were reported regarding the genitourinary system. EENT: No signs and/or symptoms were reported regarding the EENT system. Derm: Skin temperature is cool. Musculoskeletal: Swelling present in bilateral legs. 17:30 Reassessment: Patient appears in no apparent distress at this time. Patient and/or vc family updated on plan of care and expected duration. Pain level reassessed. Patient is alert, oriented x 3, equal unlabored respirations, skin warm/dry/pink. 18:30 Reassessment: Patient appears in no apparent distress at this time. Patient and/or vc family updated on plan of care and expected duration. Pain level reassessed. Patient is alert, oriented x 3, equal unlabored respirations, skin warm/dry/pink. Patient states symptoms have not improved. 19:30 Reassessment: Patient appears in no apparent distress at this time. Patient and/or vc family updated on plan of care and expected duration. Pain level reassessed. Patient is alert, oriented x 3, equal unlabored respirations, skin warm/dry/pink. Discharge pending patients transportation Patient states symptoms have not improved. 20:30 Reassessment: Patient appears in no apparent distress at this time. Patient and/or vc family updated on plan of care and expected duration. Pain level reassessed. Patient states symptoms have not improved. Neuro: Level of Consciousness is awake, alert, obeys commands, Oriented to person, place, time, situation, Appropriate for age. Respiratory: Respiratory effort is even, unlabored, Respiratory pattern is regular, symmetrical. Vital Signs: 15:49 BP 161 / 47; Pulse 46; Resp 20; Temp 98.2(O); Pulse Ox 100% on R/A; Weight 58.97 kg; vc Height 4 ft. 9 in. (144.78 cm); 17:00 BP 165 / 52; Pulse 42; Resp 19; Pulse Ox 100% ; vc 18:00 BP 160 / 48; Pulse 45; Resp 20; Pulse Ox 99% on R/A; vc 19:00 BP 162 / 50; Pulse 44; Resp 20; Pulse Ox 99% on R/A; vc 15:49 Body Mass Index 28.13 (58.97 kg, 144.78 cm) vc ED Course: 15:43 Patient arrived in ED. em1 15:43 Juan Manuel Waters MD is Attending Physician. kdr 15:48 Elli Echevarria, CÉSAR is Primary Nurse. vc 15:53 Triage completed. vc 16:00 Arm band placed on. vc 16:28 Tib Fib Right XRAY In Process Unspecified. EDMS 16:30 Patient has correct armband on for positive identification. Bed in low position. Call vc light in reach. Side rails up X2. Pulse ox on. NIBP on. 18:15 US Extremity Venous Unilateral Ltd In Process Unspecified. EDMS 19:30 No provider procedures requiring assistance completed. Patient did not have IV access vc during this emergency room visit. Administered Medications: No medications were administered Outcome: 19:13 Discharge ordered by . kdr 20:30 Discharged to home via wheelchair, with family. vc 20:30 Condition: good 20:30 Discharge instructions given to patient, family, Instructed on discharge instructions, follow up and referral plans. medication usage, Demonstrated understanding of instructions, follow-up care, medications, Prescriptions given X 1. 20:31 Patient left the ED. sg Signatures: Dispatcher [employer] EDMS Elif Travon, RN RN sg Juan Manuel Waters MD MD kdr Martinez, Eric 1 Mahi Anthony RN RN ss Elli Echevarria RN RN vc
--- NOTE | 2020-02-20 19:14 | EDPHYS ---
Physician Documentation [facility] Name: Francy Griffiths Age: 84 yrs Sex: Female : 1935 Arrival Date: 02/20/2020 Time: 15:43 Bed 16 Private MD: ED Physician Juan Manuel Waters HPI: 02/19 18:23 This 84 yrs old Female presents to ER via EMS with complaints of Leg Pain. kdr 18:24 The patient presents with pain, that is acute. The complaints affect the right forde and kdr anterior aspect of right ankle. Context: The problem was sustained at home, resulted from an unknown cause, the patient can partially bear weight, the patient is able to ambulate, with mild difficulty, Problem is a result from a previous injury: No. Onset: The symptoms/episode began/occurred gradually, 1 week(s) ago. Modifying factors: The symptoms are alleviated by nothing. the symptoms are aggravated by movement, weight bearing, Touching pre-tibial area for most of the length of the leg. Associated signs and symptoms: The patient has no apparent associated signs or symptoms. Treatment prior to arrival includes: no previous treatment. Severity of symptoms: At their worst the symptoms were mild, moderate, just prior to arrival, in the emergency department the symptoms are unchanged. The patient has experienced similar episodes in the past, but today's symptoms are worse, The pain usually resolved with ibuprofen and steroids. 02/20 08:58 The patient has chronic intermittent pain to the right lower extremity. She states that kdr she has this pain periodically and that she will take ibuprofen and steroids and it will resolve. However, in this instance, the pain has persisted and she was concerned that she may have a blood clot.. Historical: - Allergies: 02/19 15:56 Codeine; vc 15:56 Iodine; vc 15:56 Sulfa (Sulfonamide Antibiotics); vc - Home Meds: 17:20 meclizine 25 mg Oral tab 1 tab 2 times per day [Active]; prednisone 1 mg Oral tab 2 vc tabs 2 times per day [Active]; potassium chloride 20 mEq oral TbER 1 tab once daily [Active]; 17:20 levothyroxine 88 mcg oral tab [Active]; lisinopril 20 mg oral tab [Active]; vc methotrexate sodium 2.5 mg oral tab once wkly [Active]; folic acid 1 mg oral tab once daily [Active]; pravastatin 20 mg oral tab nightly [Active]; furosemide 40 mg Oral tab 1 tab once daily [Active]; sertraline 50 mg oral tab 1 tab once daily [Active]; - PMHx: 15:56 Arthritis; Rheumatoid Arthritis; Osteoporosis; Hyperlipidemia; Hypertension; vc Hypothyroidism; bradycardic; 15:57 hemaphilia; Heart Murmur; vc - PSHx: 15:56 back surgery; vc 15:57 Hysterectomy; vc - Immunization history:: Adult Immunizations up to date, Pneumococcal vaccine is up to date, Flu vaccine is up to date. - Social history:: Smoking status: Patient reports the use of cigarette tobacco products, smokes one-half pack cigarettes per day. ROS: 02/20 08:58 Constitutional: Negative for fever, chills, and weight loss, Eyes: Negative for injury, kdr pain, redness, and discharge, ENT: Negative for injury, pain, and discharge, Neck: Negative for injury, pain, and swelling, Cardiovascular: Negative for chest pain, palpitations, and edema, Respiratory: Negative for shortness of breath, cough, wheezing, and pleuritic chest pain, Abdomen/GI: Negative for abdominal pain, nausea, vomiting, diarrhea, and constipation, Back: Negative for injury and pain, : Negative for injury, bleeding, discharge, and swelling, Skin: Negative for injury, rash, and discoloration, Neuro: Negative for headache, weakness, numbness, tingling, and seizure activity. Psych: Negative for depression, anxiety, suicide ideation, homicidal ideation, and hallucinations, Allergy/Immunology: Negative for hives, rash, and allergies, Endocrine: Negative for neck swelling, polydipsia, polyuria, polyphagia, and marked weight changes, Hematologic/Lymphatic: Negative for swollen nodes, abnormal bleeding, and unusual bruising. MS/extremity: Positive for pain, swelling, tenderness, of the right ankle, right forde and anterior aspect of right ankle. Exam: 08:58 Constitutional: This is a well developed, well nourished patient who is awake, alert, kdr and in no acute distress. 08:58 Musculoskeletal/extremity: Extremities: grossly normal except: noted in the right ankle and anterior aspect of right ankle: Circulation is intact in all extremities. Sensation intact. Compartment Syndrome exam of affected extremity: is normal. no numbness, no tingling, no sensation deficit, no palor, no weak pulses. Vital Signs: 02/19 15:49 BP 161 / 47; Pulse 46; Resp 20; Temp 98.2(O); Pulse Ox 100% on R/A; Weight 58.97 kg; vc Height 4 ft. 9 in. (144.78 cm); 17:00 BP 165 / 52; Pulse 42; Resp 19; Pulse Ox 100% ; vc 18:00 BP 160 / 48; Pulse 45; Resp 20; Pulse Ox 99% on R/A; vc 19:00 BP 162 / 50; Pulse 44; Resp 20; Pulse Ox 99% on R/A; vc 15:49 Body Mass Index 28.13 (58.97 kg, 144.78 cm) vc MDM: 19:13 Patient medically screened. kdr 02/20 08:58 Data reviewed: vital signs, nurses notes, lab test result(s), radiologic studies. kdr Counseling: I had a detailed discussion with the patient and/or guardian regarding: the historical points, exam findings, and any diagnostic results supporting the discharge/admit diagnosis, lab results, radiology results, the need for outpatient follow up. 02/19 16:03 Order name: US Extremity Venous Unilateral Ltd kdr 02/19 16:03 Order name: Tib Fib Right XRAY; Complete Time: 18:13 kdr Administered Medications: No medications were administered Disposition: 02/20/20 19:13 Discharged to Home. Impression: Pain in right leg, Pain in right lower leg. - Condition is Stable. - Discharge Instructions: Musculoskeletal Pain, Pain Without a Known Cause. - Prescriptions for Keflex 500 mg Oral Capsule - take 1 capsule by ORAL route every 8 hours for 7 days; 28 capsule. - Medication Reconciliation Form, Thank You Letter, Antibiotic Education form. - Follow up: Private Physician; When: 2 - 3 days; Reason: If symptoms return, Further diagnostic work-up, Recheck today's complaints, Continuance of care, Re-evaluation by your physician. - Problem is an acute exacerbation. - Symptoms have improved. Signatures: Dispatcher [employer] EDMS Travon Asencio RN RN Juan Manuel Waters MD MD kdr Elli Echevarria RN RN vc Corrections: (The following items were deleted from the chart) 02/19 16:24 16:04 Knee Right 3 View+RAD.RAD.BRZ ordered. [facility] EDMS 20:31 19:13 02/20/2020 19:13 Discharged to Home. Impression: Pain in right leg; Pain in right sg lower leg. Condition is Stable. Forms are Medication Reconciliation Form, Thank You Letter, Antibiotic Education, Prescription Opioid Use. Follow up: Private Physician; When: 2 - 3 days; Reason: If symptoms return, Further diagnostic work-up, Recheck today's complaints, Continuance of care, Re-evaluation by your physician. Problem is an acute exacerbation. Symptoms have improved. kdr
--- NOTE | 2020-02-20 19:27 | RAD REPORT ---
EXAM DESCRIPTION: US - Extremity Venous Uni Ltd - 02/20/2020 7:13 pm CLINICAL HISTORY: PAIN Leg swelling and edema. COMPARISON: No comparisons FINDINGS: Right lower extremity venous system was interrogated with Doppler technique. Normal flow, compressibility and augmentation was noted. There is no DVT present. IMPRESSION: No evidence of right lower extremity deep venous thrombosis.
[2020-02-20 20:56] VITALS: BP 161/47; TEMP 98.2; O2SAT 100
== END 2020-02-20 20:31 | disposition home or self-care (01) ==
LOC: ER 15:38
DX: M79.661 Pain in right lower leg (principal); I10 Essential (primary) hypertension; E78.5 Hyperlipidemia, unspecified; E03.9 Hypothyroidism, unspecified; F17.210 Nicotine dependence, cigarettes, uncomplicated; Z88.2 Allergy status to sulfonamides; Z88.5 Allergy status to narcotic agent; Z88.8 Allergy status to other drugs, medicaments and biological substances
CPT/HCPCS: 93971

== ENCOUNTER 2020-06-27 15:26 | Emergency (ER) | payer OTHER ==
--- OUTSIDE RECORDS SUMMARY | 2020-06-27 15:29 | XMS REPORT | Continuity of Care Document ---
:1935 Author Organization [facility] t Address [address] [place] [id number] Care Team Providers Name Role Phone Unavailable Unavailable Unavailable Problems Condition Condition Condition Status Onset Resolution Last Treating Co mments Source Name Details Category Date Date Treatment Clinician Date Arthropath Arthropath Problem Active 2020-0 V illage y y 3-18 Family associated Associated 00:00: Pr actic with a with a 00 e neurologic Neurologic al al disorder Disorder Hypothyroi Hypothyroi Problem Active 2020-0 V illage dism dism 3-18 Family 00:00: Practic 00 e Hyperlipid Hyperlipid Problem Active 2020-0 V illage emia emia 3-18 Family 00:00: Practic 00 e Essential Essential Problem Active 2020-0 Scott richard hypertensi Hypertensi 3-18 Fa gage on on 00:00: Practic 00 e Congestive Congestive Problem Active 2020-0 V ill[facility] heart Heart 3-18 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 00:00: Practic 00 e Rheumatoid Rheumatoid Problem Active 2020-0 [facility] arthritis Arthritis 3-18 Fami ly 00:00: Practic 00 e Fall Fall Problem Active 2020-0 Village 3-18 Family 00:00: Practic 00 e Tremor Tremor Problem Active [facility] Allergic Allergic Problem [facility] rhinitis, rhinitis, Luke [facility] - unspecifie unspecifie Me moria d d l seasonalit seasonalit Ou tpati y, y, ent unspecifie unspecifie Cl inics d trigger d trigger Hypothyroi Hypothyroi Diagnosis Active [facility] dism, dism, [facility] - unspecifie unspecifie Me moria d type d type l Outpati ent Clinics Rheumatoid Rheumatoid Problem Active [facility] arthritis, arthritis, Christine kes - involving involving Fam jakub unspecifie unspecifie l d site, d site, Outpati unspecifie unspecifie en t d d Clinics rheumatoid rheumatoid factor factor presence presence Hyperlipid Hyperlipid Problem Active [facility] emia, emia, [facility] - unspecifie unspecifie Me moria d d l hyperlipid hyperlipid Ou tpati emia type emia type ent Clinics Hypoglycem Hypoglycem Diagnosis Active [facility] Hypertensi Hypertensi Problem Active [facility] on, on, [facility] - unspecifie unspecifie Me moria d type d type l [facility] At risk At risk Problem Active [facility] Cerebrovas Cerebrovas Problem Active [facility] cular cular [facility] - accident accident [facility] a l [facility] Chronic Chronic Problem Active [facility] obstructiv obstructiv Christine kes - e e Memoria pulmonary pulmonary l disease, disease, Outpat i unspecifie unspecifie en t d COPD d COPD Clinics type type Systolic Systolic Problem Active [facility] murmur murmur [facility] Chronic Chronic Problem Active [facility] pain pain [facility] syndrome syndrome [facility] Hypokalemi Hypokalemi Problem Active [facility] Dysuria Dysuria Problem Active [facility] Depression Depression Problem Active [facility] with with [facility] anxiety anxiety [facility]oria l [facility] Peripheral Peripheral Problem Active [facility] vascular vascular [facility] - disease disease [facility] Weight Weight Problem Active [facility] loss loss [facility] Dizziness Dizziness Problem Active [facility] Rash and Rash and Problem Active [facility] nonspecifi nonspecifi Christine kes - c skin c skin Memoria eruption eruption l [facility] Pain in Pain in Problem Active [facility] right knee right knee Christine kes - [facility] Seasonal Seasonal Problem Active [facility] allergies allergies [facility] Osteoporos Osteoporos Problem Active [facility] is is [facility] Sinus Sinus Problem Active [facility] problem problem [facility] Atheroscle Atheroscle Problem Active [facility] rosis of rosis of [facility] - right right Memoria carotid carotid l artery artery Outpati ent Clinics Irregular Irregular Problem Active [facility] heart heart [facility] - beats beats [facility] DNR (do DNR (do Problem Active [facility] not not [facility] - resuscitat resuscitat Me moria e) e) l discussion discussion Ou tpati ent Clinics Allergies, Adverse Reactions, Alerts Allergy Allergy Status Severity Reaction(s) Onset Inactive Treating Comm ents Source Name Type Date Date Clinician Codeine Allergy Active Village to Family substanc Practic e e Iodine Allergy Active Anaphylaxis Vill age to Family substanc Practic e e SULFA Allergy Active Village (SULFONA to Family MIDE substanc Practic ANTIBIOT e e ICS) Social History Smoking Status Start Date Stop Date Source Heavy Tobacco Smoker [facility] Fam ego Practice Medications Ordered Filled Start Stop Current Ordering Indication Dosage Frequency Signature Comments Components Source Medication Medication Date Date Medication? Clinician (SIG) Name Name Meclizine Meclizine Yes Yanira [address] [facility] HCl HCl 2-17 Millender as needed [facility] - 00:[facility]: [facility] 00 l [facility] Blood Blood 2018-11 Yes Yanira as [facility] Glucose Glucose 0-13 Millender directed [facility] - Test Strip Test Strip 00:00: (DISPENSE Memoria 00 BLOOD l GLUCOSE Outpati TEST ent STRIPS OF Clinics RECORD) furosemide furosemide No 1 Q1D furosemide [facility] 40 mg 40 mg 40 mg Family tablet Take tablet Take tablet Practic 1 tablet 1 tablet Take 1 e every day every day tablet by oral by oral every day route. route. by oral route. levothyroxi levothyroxi No 1capsul Q1D levothyrox [facility] ne 88 mcg ne 88 mcg e(s) ine 88 mcg Family capsule capsule capsule Practi c Take 1 Take 1 Take 1 e capsule capsule capsule every day every day every day by oral by oral by oral route route route before before before meals. meals. meals. lisinopril lisinopril No 1 Q1D lisinopril [facility] 20 mg 20 mg 20 mg Family tablet Take tablet Take tablet Practic 1 tablet 1 tablet Take 1 e every day every day tablet by oral by oral every day route. route. by oral route. methotrexat methotrexat No 10mg Q1W methotrexa Village e 2.5 mg e 2.5 mg te 2.5 mg Fa gage tablet Take tablet Take tablet Practic 10 mg every 10 mg every Take 10 mg e week by week by every week oral route. oral route. by oral route. pravastatin pravastatin No 1 Q1D sharita [facility] 20 mg 20 mg n 20 mg Family tablet Take tablet Take tablet Practic 1 tablet 1 tablet Take 1 e every day every day tablet by oral by oral every day route. route. by oral route. Pravastatin Pravastatin Yes Yanira [address] [facility] [address] Sodium Sodium Millender in evening [facility] Prednisone Prednisone Yes Yanira [address] [facility] [address] Millender with food [facility] - or milk Memoria l Outpati ent Clinics Furosemide Furosemide Yes Yanira [address] [facility] Millender [facility] Synthroid Synthroid Yes Yanira [address] [facility] Millender on an [facility] - empty Memoria stomach in l the Outpati morning ent Clinics Sertraline Sertraline Yes Yanira [address] [facility] [address] HCl HCl Millender [facility] Methotrexat Methotrexat Yes Yanira as [facility] e e Millender directed [facility] Lisinopril Lisinopril Yes Yanira [address] [facility] Millender [facility] Potassium Potassium 2020- No Yanira [address] Chloride Chloride 14 Millender L ukes - 00:00 Memoria :00 [facility] Immunizations Ordered Immunization Filled Immunization Date Status Commen ts Source Name Name Influenza A Influenza A [facility] monovalent (H5N1), monovalent (H5N1), 00:00:00 Practice ADJUVANTED-2013 ADJUVANTED-2013 pneumococcal pneumococcal 2017-09-01 [facility] polysaccharide PPV23 polysaccharide PPV23 00:00:00 Practice Vital Signs Vital Name Observation Time Observation Value Comments Source Height 2020-01-23 00:00:00 57 [in_i] [facility] BMI (Body Mass 2020-01-23 00:00:00 29.9 kg/m2 [facility] Family Index) Practice Body Weight 2020-01-23 00:00:00 138 [lb_av] [facility] Procedures Procedure Date / Time Performed Performing Clinician Marlo story Procedure on Brain [facility] y Practice Uterine Myomectomy [facility] Spinal Disk Surgery [facility] ly Add-on Practice Encounters Start End Encounter Admission Attending Care Care Encounter Source Date/Time Date/Time Type Type Clinicians Facility Department ID 2020-05-09 2020-05-09 [facility] [id number] [facility] 13:00[facility]00 13:00:00 [facility] Medicine Outpati ent Clinics 2020-05-08 2020-05-08 [facility] [id number] 13:50:00 13:50:00 [facility] Outpat[facility] ent Clinics 2020-02-08 2020-02-08 [facility] [id number] 13:15:00 13:15:00 [facility] Outpati ent Clinics 2020-01-23 2020-01-23 [facility] [place] - [id number] V illage 00:00:00 00:00:00 [facility] geo senior, NEPHROLOGY NURSE: Medical - Practi c [email or web address] [facility], [place] [address], [place] [address] , Ph. 2020-01-15 2020-01-15 [facility] [id number] 15:01:00 15:01:00 [facility] Outpat[facility] Clinics 2019-12-18 2019-12-18 [facility] [id number] 10:45:00 10:45:00 [facility] Clin[facility] 2019-11-16 2019-11-16 [facility] [id number] [facility] 10:30:00 10:30:00 [facility] Clin[facility] 2019-11-09 2019-11-09 [facility] [id number] 13:45:00 13:45:00 [facility] Clinics Results This patient has no known results.
--- OUTSIDE RECORDS SUMMARY | 2020-06-27 15:29 | XMS REPORT ---
:1935 [facility] Team Providers Name Role Phone Gayle Yanira Provider Role Unavailable Allergies, Adverse Reactions, Alerts Substance Reaction Event Type N.K.D.A. Info Not Available Non Drug Allergy Problems Problem Type Condition Code Onset Dates Condition Statu s Problem At risk for falls Z91.81 Active Problem Sinus problem J34.9 Active Problem Irregular heart beats I49.9 Active Problem Pain in right knee M25.561 Active Problem Seasonal allergies J30.2 Active Problem Weight loss R63.4 Active Problem Peripheral vascular disease I73.9 Active Problem Osteoporosis M81.0 Active Problem Cerebrovascular accident I63.9 Act amanda Problem Rash R21 Active Problem Depression with anxiety F41.8 Acti ve Problem Chronic pain syndrome G89.4 Active Problem Rash and nonspecific skin eruption R21 Active Problem Hypoglycemia E16.2 Active Problem Dysuria R30.0 Active Problem Rheumatoid arthritis M06.9 Active Problem Hypothyroidism E03.9 Active Problem Hypothyroidism, unspecified type E03.9 Active Problem Hypokalemia E87.6 Active Assessment Tremor R25.1 Active Problem Hypertension I10 Active Problem Tremor R25.1 Active Problem Chronic obstructive pulmonary J44.9 Active disease Problem DNR (do not resuscitate) discussion Z71.89 Active Problem Heart murmur R01.1 Active Problem Hyperlipemia E78.5 Active Assessment Heart murmur R01.1 Active Problem Chronic obstructive pulmonary J44.9 Active disease, unspecified COPD type Assessment Hypertension, unspecified type I10 Active Problem Systolic murmur R01.1 Active Assessment Hyperlipidemia, unspecified E78.5 Active hyperlipidemia type Problem Hyperlipidemia, unspecified E78.5 Active hyperlipidemia type Assessment Hypoglycemia E16.2 Active Problem Atherosclerosis of right carotid I65.21 Active artery Assessment Rheumatoid arthritis, involving M06.9 Active unspecified site, unspecified rheumatoid factor presence Problem Allergic rhinitis, unspecified J30.9 Active seasonality, unspecified trigger Assessment Hypothyroidism, unspecified type E03.9 Active Problem Dizziness R42 Active Problem Hypertension, unspecified type I10 Active Problem Rheumatoid arthritis, involving M06.9 Active unspecified site, unspecified rheumatoid factor presence Medications Medication Code Code Instructions Start End Status Dosage System Date Date Pravastatin ND 45878187537 20 MG Orally Active 1 t ablet in Sodium Once a day evening Sertraline HCl ND 59045850289 50 MG Orally Active 1 tablet Once a day for depression/anxi ety Synthroid ND 37980530711 88 MCG Orally Active 1 ta blet on Once a day an empty stomach in the morning Meclizine HCl ND 01964031198 25 MG Orally Dec 18, Active 1 tablet as Twice daily 2020 needed for dizziness Potassium ND 24538561883 20 MEQ Orally Active 1 ca psule Chloride Once a day Furosemide ND 03057949672 40 MG Orally Active 1 ta blet Once a day Meclizine HCl ND 77074951362 25 MG Orally 4x Active 1 tablet as a day as needed needed Prednisone ND 22885740417 1 MG Orally Active 1 tab let Once a day with food or milk Methotrexate NDC 0 Orally as Active as direc ai directed Blood Glucose NDC 0 as directed Aug 13, Active as di rected Test Strip Test BS once 2019 (DISPENS E daily BLOOD GLUCOSE TEST STRIPS OF RECORD) Lisinopril ND 08568891613 20 MG Orally Active 1 ta blet Once a day Results No Known Results Summary Purpose [employer] Submission
--- OUTSIDE RECORDS SUMMARY | 2020-06-27 15:29 | XMS REPORT ---
:1935 Author Organization [employer] Care Team Providers Name Role Phone Yanira Araujo Provider Role Unavailable Allergies No Known Allergies Problems Problem Type Condition Code Onset Dates Condition Statu s Problem Sinus problem J34.9 Active Problem At risk for falls Z91.81 Active Problem Irregular heart beats I49.9 Active Problem Cerebrovascular accident I63.9 Act amanda Problem Chronic pain syndrome G89.4 Active Problem Tremor R25.1 Active Problem Pain in right knee M25.561 Active Problem Seasonal allergies J30.2 Active Problem Dizziness R42 Active Problem Rash R21 Active Problem Osteoporosis M81.0 Active Problem Depression with anxiety F41.8 Acti ve Problem Dysuria R30.0 Active Problem Rash and nonspecific skin eruption R21 Active Problem Rheumatoid arthritis M06.9 Active Problem Hypothyroidism E03.9 Active Problem Hypokalemia E87.6 Active Problem Peripheral vascular disease I73.9 Active Problem Hypertension I10 Active Problem Weight loss R63.4 Active Problem DNR (do not resuscitate) discussion Z71.89 Active Problem Hypoglycemia E16.2 Active Problem Hyperlipemia E78.5 Active Problem Chronic obstructive pulmonary J44.9 Active disease Problem Atherosclerosis of right carotid I65.21 Active artery Problem Chronic obstructive pulmonary J44.9 Active disease, unspecified COPD type Problem Hypothyroidism, unspecified type E03.9 Active Problem Hyperlipidemia, unspecified E78.5 Active hyperlipidemia type Problem Rheumatoid arthritis, involving M06.9 Active unspecified site, unspecified rheumatoid factor presence Problem Allergic rhinitis, unspecified J30.9 Active seasonality, unspecified trigger Problem Systolic murmur R01.1 Active Problem Hypertension, unspecified type I10 Active Medications No Known Medications Results No Known Results Summary Purpose [employer] Submission
--- NOTE | 2020-06-27 17:21 | RAD REPORT ---
EXAM DESCRIPTION: RAD - Shoulder Left 2 View - 06/27/2020 4:19 pm CLINICAL HISTORY: Pain;Smash injury COMPARISON: Shoulder Left 2 View dated 02/06/2016 FINDINGS: Diffuse osteopenia. Degenerative changes are present involving the AC joint and glenohumer al joint. No acute fracture or dislocation evident.
--- NOTE | 2020-06-27 17:22 | RAD REPORT ---
EXAM DESCRIPTION: RAD - Humerus Left - 06/27/2020 4:19 pm CLINICAL HISTORY: PAIN Fall, pain COMPARISON: Humerus Left dated 02/06/2016; Shoulder Left 2 View dated 06/27/2020 FINDINGS: Intraarticular fracture involving the lateral epicondyle of the distal humerus is seen. Di splacement is minimal. No dislocation.
--- NOTE | 2020-06-27 18:13 | ER ---
Nurse's Notes [facility] [place] Name: Francy Griffiths Age: 85 yrs Sex: Female : 1935 Arrival Date: 06/27/2020 Time: 15:34 Bed 16 Private MD: Diagnosis: Nondisplaced fracture (avulsion) of lateral epicondyle of left humerus;Fall on same level from slipping, tripping and stumbling with subsequent striking against other object Presentation: 06/27 15:35 Chief complaint: EMS states: pt states she tripped over a curb and landed on her left tw2 side of her body, c/o LEFT arm and shoulder pain, vs stable, however her HR was 43-36 and she states that's normal for her. denies LOC. Coronavirus screen: At this time, the client does not indicate any symptoms associated with coronavirus-19. Ebola Screen: Patient negative for fever greater than or equal to 101.5 degrees Fahrenheit, and additional compatible Ebola Virus Disease symptoms Patient denies travel to an Ebola-affected area in the 21 days before illness onset. Initial Sepsis Screen: Does the patient meet any 2 criteria? No. Patient's initial sepsis screen is negative. Does the patient have a suspected source of infection? No. Patient's initial sepsis screen is negative. Risk Assessment: Do you want to hurt yourself or someone else? Patient reports no desire to harm self or others. Onset of symptoms was June 27, 2020. 15:35 Method Of Arrival: EMS: [facility] tw2 15:35 Acuity: DIONTE 3 tw2 Triage Assessment: 15:38 General: Appears in no apparent distress. Behavior is calm, cooperative, appropriate tw2 for age. Pain: Complains of pain in left arm. Historical: - Allergies: 15:40 Codeine; tw2 15:40 Iodine; tw2 15:40 Sulfa (Sulfonamide Antibiotics); tw2 15:40 Demerol; tw2 - Home Meds: 15:40 sertraline 50 mg Oral tab 1 tab once daily [Active]; prednisone 1 mg Oral tab 2 tabs 2 tw2 times per day [Active]; lisinopril 20 mg Oral tab [Active]; levothyroxine 88 mcg tab [Active]; furosemide 40 mg Oral tab 1 tab once daily [Active]; folic acid 1 mg Oral tab once daily [Active]; - PMHx: 15:40 Hyperlipidemia; Hypothyroidism; Osteoporosis; Hypertension; Heart Murmur; bradycardic; tw2 hemaphilia; Rheumatoid Arthritis; Arthritis; - PSHx: 15:40 back surgery; Hysterectomy; tw2 - Immunization history:: Adult Immunizations. - Social history:: Smoking status: . Screenin:09 Abuse screen: Denies threats or abuse. Nutritional screening: No deficits noted. tw2 Tuberculosis screening: No symptoms or risk factors identified. Fall Risk Secondary diagnosis (15 points) impaired mobility. Assessment: 15:34 General: Appears in no apparent distress. well groomed, Behavior is calm, cooperative, tw2 appropriate for age. Pain: Complains of pain in left arm. Neuro: Level of Consciousness is awake, alert, obeys commands, Oriented to person, place, time, situation. Cardiovascular: Heart tones S1 S2 Patient's skin is warm and dry. Respiratory: Airway is patent Respiratory effort is even, unlabored, Respiratory pattern is regular, symmetrical, Breath sounds are clear bilaterally. GI: No signs and/or symptoms were reported involving the gastrointestinal system. : No signs and/or symptoms were reported regarding the genitourinary system. EENT: No signs and/or symptoms were reported regarding the EENT system. Derm: No signs and/or symptoms reported regarding the dermatologic system. Musculoskeletal: Circulation, motion, and sensation intact. Range of motion: limited in left shoulder bony deformities noted to left and right hand appears to be arthritic changes. Reports pain in posterior aspect of left shoulder and anterior aspect of left shoulder and left arm. 15:37 Reassessment: provider at bedside at this time. tw2 16:30 Reassessment: Patient appears in no apparent distress at this time. No changes from tw2 previously documented assessment. Patient and/or family updated on plan of care and expected duration. Pain level reassessed. Patient is alert, oriented x 3, equal unlabored respirations, skin warm/dry/pink. 17:30 Reassessment: Patient appears in no apparent distress at this time. No changes from tw2 previously documented assessment. Patient and/or family updated on plan of care and expected duration. Pain level reassessed. Patient is alert, oriented x 3, equal unlabored respirations, skin warm/dry/pink. 18:23 Reassessment: Patient appears in no apparent distress at this time. No changes from tw2 previously documented assessment. Patient and/or family updated on plan of care and expected duration. Pain level reassessed. Patient is alert, oriented x 3, equal unlabored respirations, skin warm/dry/pink. Vital Signs: 15:35 BP 120 / 49; Pulse 43; Resp 17; Temp 98.4(O); Pulse Ox 99% on R/A; Weight 56.7 kg; tw2 Height 4 ft. 10 in. (147.32 cm) (R); Pain 10/10; 16:30 BP 121 / 40; Pulse 40; Resp 17; Pulse Ox 98% on R/A; tw2 17:30 BP 127 / 42; Pulse 42; Resp 17; Pulse Ox 100% on R/A; tw2 17:30 BP 154 / 41; Pulse 40; Resp 17; Pulse Ox 99% on R/A; tw2 15:35 Body Mass Index 26.12 (56.70 kg, 147.32 cm) tw2 ED Course: 15:34 Patient arrived in ED. em1 15:34 Lakeshia Gray FNP-C is [facility]. snw 15:34 Abiodun Guzman MD is Attending Physician. snw 15:35 Talya Maldonado, CÉSAR is Primary Nurse. tw2 15:36 Call light in reach. Side rails up X2. Pulse ox on. NIBP on. Warm blanket given. tw2 15:37 Triage completed. tw2 15:38 Arm band placed on. tw2 15:48 Ice pack to injury. tw2 16:19 Shoulder Left (2 View) XRAY In Process Unspecified. EDMS 16:19 Humerus Left XRAY In Process Unspecified. EDMS 17:56 Orthoglass splint: posterior long arm splint applied to the left arm. capillary refill dh3 <3 seconds. Sling applied to left arm. viewed by Lakeshia Gray NP. 18:24 No provider procedures requiring assistance completed. Patient did not have IV access tw2 during this emergency room visit. Administered Medications: No medications were administered Outcome: 18:12 Discharge ordered by . snw 18:24 Discharged to home via wheelchair. tw2 18:24 Condition: stable 18:24 Discharge instructions given to patient, Instructed on discharge instructions, follow up and referral plans. safety practices, splint care, cms checks Demonstrated understanding of instructions, follow-up care, splint care, cms checks 18:25 Patient left the ED. tw2 Signatures: Dispatcher [employer] Lakeshia Chance, BESSY WARDP-Jesús Lee em1 Talya Maldonado, RN RN tw2 Edel Rodriguez 3 Corrections: (The following items were deleted from the chart) 18:25 18:24 Discharge instructions given to patient, Instructed on discharge instructions, tw2 follow up and referral plans. safety practices, Demonstrated understanding of instructions, follow-up care, tw2
--- NOTE | 2020-06-27 18:13 | EDPHYS ---
Physician Documentation [facility] Name: Francy Griffiths Age: 85 yrs Sex: Female : 1935 Arrival Date: 06/27/2020 Time: 15:34 Bed 16 Private MD: ED Physician Abiodun Guzman HPI: 06/27 15:50 This 85 yrs old Female presents to ER via EMS with complaints of Fall Injury, snw Arm Pain, Shoulder Pain. 15:50 Details of fall: The patient fell from an upright position, while walking. Onset: The snw symptoms/episode began/occurred suddenly, just prior to arrival. Associated injuries: The patient sustained posterior aspect of left shoulder and anterior aspect of left shoulder, decreased range of motion. Severity of symptoms: At their worst the symptoms were moderate. The patient has not experienced similar symptoms in the past. Sees Dr. Araujo, Dr. Hicks, [facility]. Historical: - Allergies: 15:40 Codeine; tw2 15:40 Iodine; tw2 15:40 Sulfa (Sulfonamide Antibiotics); tw2 15:40 Demerol; tw2 - Home Meds: 15:40 sertraline 50 mg Oral tab 1 tab once daily [Active]; prednisone 1 mg Oral tab 2 tabs 2 tw2 times per day [Active]; lisinopril 20 mg Oral tab [Active]; levothyroxine 88 mcg tab [Active]; furosemide 40 mg Oral tab 1 tab once daily [Active]; folic acid 1 mg Oral tab once daily [Active]; - PMHx: 15:40 Hyperlipidemia; Hypothyroidism; Osteoporosis; Hypertension; Heart Murmur; bradycardic; tw2 hemaphilia; Rheumatoid Arthritis; Arthritis; - PSHx: 15:40 back surgery; Hysterectomy; tw2 - Immunization history:: Adult Immunizations. - Social history:: Smoking status: . ROS: 15:48 Constitutional: Negative for fever, chills, and weight loss, Eyes: Negative for injury, snw pain, redness, and discharge, ENT: Negative for injury, pain, and discharge, Neck: Negative for injury, pain, and swelling, Cardiovascular: Negative for chest pain, palpitations, and edema, Respiratory: Negative for shortness of breath, cough, wheezing, and pleuritic chest pain, Abdomen/GI: Negative for abdominal pain, nausea, vomiting, diarrhea, and constipation, Back: Negative for injury and pain, : Negative for injury, bleeding, discharge, and swelling, Skin: Negative for injury, rash, and discoloration, Neuro: Negative for headache, weakness, numbness, tingling, and seizure, Psych: Negative for depression, anxiety, suicide ideation, homicidal ideation, and hallucinations. 15:48 MS/extremity: Positive for injury or acute deformity, decreased range of motion, pain, tenderness, of the posterior aspect of left shoulder and anterior aspect of left shoulder and left arm. Exam: 15:47 Constitutional: This is a well developed, well nourished patient who is awake, alert, snw and in no acute distress. Head/Face: Normocephalic, atraumatic. Eyes: Pupils equal round and reactive to light, extra-ocular motions intact. Lids and lashes normal. Conjunctiva and sclera are non-icteric and not injected. Cornea within normal limits. Periorbital areas with no swelling, redness, or edema. ENT: Nares patent. No nasal discharge, no septal abnormalities noted. Tympanic membranes are normal and external auditory canals are clear. Oropharynx with no redness, swelling, or masses, exudates, or evidence of obstruction, uvula midline. Mucous membranes moist. Neck: Trachea midline, no thyromegaly or masses palpated, and no cervical lymphadenopathy. Supple, full range of motion without nuchal rigidity, or vertebral point tenderness. No Meningismus. Chest/axilla: Normal chest wall appearance and motion. Nontender with no deformity. No lesions are appreciated. Cardiovascular: Bradycardic rate and rhythm with a normal S1 and S2. No gallops or rubs. Loud systolic murmur, Normal PMI, no JVD. No pulse deficits. Respiratory: Lungs have equal breath sounds bilaterally, clear to auscultation and percussion. No rales, rhonchi or wheezes noted. No increased work of breathing, no retractions or nasal flaring. Abdomen/GI: Soft, non-tender, with normal bowel sounds. No distension or tympany. No guarding or rebound. No evidence of tenderness throughout. Back: No spinal tenderness. No costovertebral tenderness. Full range of motion. Skin: Warm, dry with normal turgor. Normal color with no rashes, no lesions, and no evidence of cellulitis. Ecchymosis to mid upper arm Neuro: Awake and alert, GCS 15, oriented to person, place, time, and situation. Cranial nerves II-XII grossly intact. Motor strength 5/5 in all extremities. Sensory grossly intact. Cerebellar exam normal. Normal gait. Psych: Awake, alert, with orientation to person, place and time. Behavior, mood, and affect are within normal limits. 15:47 Musculoskeletal/extremity: Extremities: grossly normal except: noted in the anterior aspect of left shoulder, left bicep and posterior aspect of left shoulder: decreased ROM, pain, tenderness, ROM: limited active range of motion due to pain, in the left arm, Circulation is intact in all extremities. Sensation intact. Vital Signs: 15:35 BP 120 / 49; Pulse 43; Resp 17; Temp 98.4(O); Pulse Ox 99% on R/A; Weight 56.7 kg; tw2 Height 4 ft. 10 in. (147.32 cm) (R); Pain 10/10; 16:30 BP 121 / 40; Pulse 40; Resp 17; Pulse Ox 98% on R/A; tw2 17:30 BP 127 / 42; Pulse 42; Resp 17; Pulse Ox 100% on R/A; tw2 17:30 BP 154 / 41; Pulse 40; Resp 17; Pulse Ox 99% on R/A; tw2 15:35 Body Mass Index 26.12 (56.70 kg, 147.32 cm) tw2 MDM: 15:34 Patient medically screened. snw 18:14 Data reviewed: vital signs, nurses notes. Data interpreted: Pulse oximetry: on room air snw is 98 %. Interpretation: normal. Counseling: I had a detailed discussion with the patient and/or guardian regarding: the historical points, exam findings, and any diagnostic results supporting the discharge/admit diagnosis, radiology results, the need for outpatient follow up, to return to the emergency department if symptoms worsen or persist or if there are any questions or concerns that arise at home. ED course: pt declines pain medications. 18:14 Response to treatment: the patient's symptoms have mildly improved after treatment. snw Special discussion: Based on the patient's history, exam and DX evaluation, there is no indication for emergent intervention or inpatient TX. It is understood by the patient/guardian that if the SXs persist or worsen they need to return immediately for re-evaluation. Based on the history and exam findings, there is no indication for further emergent testing or inpatient evaluation. I discussed with the patient/guardian the need to see the orthopedic surgeon for further evaluation of the symptoms. I discussed with the patient/guardian the need to see the primary care provider for further evaluation of the symptoms. 06/27 15:41 Order name: Shoulder Left (2 View) XRAY; Complete Time: 17:22 snw 06/27 15:41 Order name: Humerus Left XRAY; Complete Time: 17:24 snw 06/27 15:41 Order name: Ice pack; Complete Time: 15:49 snw 06/27 15:41 Order name: Sling; Complete Time: 17:58 snw 06/27 17:25 Order name: Posterior Elbow Splint; Complete Time: 17:58 snw Administered Medications: No medications were administered Disposition: 18:39 Co-signature as Attending Physician, Abiodun Guzman MD. rn Disposition: 06/27/20 18:12 Discharged to Home. Impression: Nondisplaced fracture (avulsion) of lateral epicondyle of left humerus, Fall on same level from slipping, tripping and stumbling with subsequent striking against other object. - Condition is Stable. - Discharge Instructions: Fall Prevention in the Home, Humerus Fracture Treated With Immobilization, Humerus Fracture Treated With ORIF, Cast or Splint Care, [id number], How to Use a Sling. - Medication Reconciliation Form, Thank You Letter, Antibiotic Education, Prescription Opioid Use form. - Follow up: Emergency Department; When: As needed; Reason: Worsening of condition. Follow up: Private Physician; When: 2 - 3 days; Reason: Recheck today's complaints, Continuance of care, Re-evaluation by your physician. Signatures: Dispatcher [employer] EDMS Lakeshia Gray, BUSINESS STRATEGIST-C BUSINESS STRATEGIST-Csnw Abiodun Guzman MD MD rn Wise, Tara, RN RN tw2 Corrections: (The following items were deleted from the chart) 15:50 15:47 Constitutional: This is a well developed, well nourished patient who is awake, snw alert, and in no acute distress. Head/Face: Normocephalic, atraumatic. Eyes: Pupils equal round and reactive to light, extra-ocular motions intact. Lids and lashes normal. Conjunctiva and sclera are non-icteric and not injected. Cornea within normal limits. Periorbital areas with no swelling, redness, or edema. ENT: Nares patent. No nasal discharge, no septal abnormalities noted. Tympanic membranes are normal and external auditory canals are clear. Oropharynx with no redness, swelling, or masses, exudates, or evidence of obstruction, uvula midline. Mucous membranes moist. Neck: Trachea midline, no thyromegaly or masses palpated, and no cervical lymphadenopathy. Supple, full range of motion without nuchal rigidity, or vertebral point tenderness. No Meningismus. Chest/axilla: Normal chest wall appearance and motion. Nontender with no deformity. No lesions are appreciated. Cardiovascular: Regular rate and rhythm with a normal S1 and S2. No gallops, murmurs, or rubs. Normal PMI, no JVD. No pulse deficits. Respiratory: Lungs have equal breath sounds bilaterally, clear to auscultation and percussion. No rales, rhonchi or wheezes noted. No increased work of breathing, no retractions or nasal flaring. Abdomen/GI: Soft, non-tender, with normal bowel sounds. No distension or tympany. No guarding or rebound. No evidence of tenderness throughout. Back: No spinal tenderness. No costovertebral tenderness. Full range of motion. Skin: Warm, dry with normal turgor. Normal color with no rashes, no lesions, and no evidence of cellulitis. Neuro: Awake and alert, GCS 15, oriented to person, place, time, and situation. Cranial nerves II-XII grossly intact. Motor strength 5/5 in all extremities. Sensory grossly intact. Cerebellar exam normal. Normal gait. Psych: Awake, alert, with orientation to person, place and time. Behavior, mood, and affect are within normal limits. snw 15:54 15:47 Constitutional: This is a well developed, well nourished patient who is awake, snw alert, and in no acute distress. Head/Face: Normocephalic, atraumatic. Eyes: Pupils equal round and reactive to light, extra-ocular motions intact. Lids and lashes normal. Conjunctiva and sclera are non-icteric and not injected. Cornea within normal limits. Periorbital areas with no swelling, redness, or edema. ENT: Nares patent. No nasal discharge, no septal abnormalities noted. Tympanic membranes are normal and external auditory canals are clear. Oropharynx with no redness, swelling, or masses, exudates, or evidence of obstruction, uvula midline. Mucous membranes moist. Neck: Trachea midline, no thyromegaly or masses palpated, and no cervical lymphadenopathy. Supple, full range of motion without nuchal rigidity, or vertebral point tenderness. No Meningismus. Chest/axilla: Normal chest wall appearance and motion. Nontender with no deformity. No lesions are appreciated. Cardiovascular: Regular rate and rhythm with a normal S1 and S2. No gallops, murmurs, or rubs. Normal PMI, no JVD. No pulse deficits. Respiratory: Lungs have equal breath sounds bilaterally, clear to auscultation and percussion. No rales, rhonchi or wheezes noted. No increased work of breathing, no retractions or nasal flaring. Abdomen/GI: Soft, non-tender, with normal bowel sounds. No distension or tympany. No guarding or rebound. No evidence of tenderness throughout. Back: No spinal tenderness. No costovertebral tenderness. Full range of motion. Skin: Warm, dry with normal turgor. Normal color with no rashes, no lesions, and no evidence of cellulitis. Ecchymosis to mid upper arm Neuro: Awake and alert, GCS 15, oriented to person, place, time, and situation. Cranial nerves II-XII grossly intact. Motor strength 5/5 in all extremities. Sensory grossly intact. Cerebellar exam normal. Normal gait. Psych: Awake, alert, with orientation to person, place and time. Behavior, mood, and affect are within normal limits. snw 18:25 18:12 06/27/2020 18:12 Discharged to Home. Impression: Nondisplaced fracture (avulsion) tw2 of lateral epicondyle of left humerus; Fall on same level from slipping, tripping and stumbling with subsequent striking against other object. Condition is Stable. Forms are Medication Reconciliation Form, Thank You Letter, Antibiotic Education, Prescription Opioid Use. Follow up: Emergency Department; When: As needed; Reason: Worsening of condition. Follow up: Private Physician; When: 2 - 3 days; Reason: Recheck today's complaints, Continuance of care, Re-evaluation by your physician. snw
== END 2020-06-27 18:25 | disposition home or self-care (01) ==
LOC: ER 15:26
PROC: 2W39X1Z Immobilization of Left Upper Extremity using Splint (ICD-10-PCS; principal; 2020-06-27)
DX: S42.435A Nondisplaced fracture (avulsion) of lateral epicondyle of left humerus, initial encounter for closed fracture (principal); W01.10XA Fall on same level from slipping, tripping and stumbling with subsequent striking against unspecified object, initial encounter; Y93.01 Activity, walking, marching and hiking; Y92.9 Unspecified place or not applicable; I10 Essential (primary) hypertension; E78.5 Hyperlipidemia, unspecified; E03.9 Hypothyroidism, unspecified; Z88.2 Allergy status to sulfonamides; Z88.5 Allergy status to narcotic agent; Z88.8 Allergy status to other drugs, medicaments and biological substances; Z91.048 Other nonmedicinal substance allergy status
CPT/HCPCS: 99284

== ENCOUNTER 2021-07-20 16:15 | Emergency (ER) | payer OTHER ==
--- NOTE | 2021-07-20 16:57 | RAD REPORT ---
EXAM DESCRIPTION: Jayce Single View07/20/2021 4:41 pm CLINICAL HISTORY: cough COMPARISON: 2019 FINDINGS: Calcified granuloma left lung. The lungs appear clear of acute infiltrate. The heart is normal size . Small left pleural effusion
[2021-07-20] MEDS ORDERED: ONDANSETRON 4 MG/2 ML VIAL ONE (17:02)
[2021-07-20] MEDS ORDERED: PANTOPRAZOLE 40 MG INJ ONE (17:03)
[2021-07-20] MEDS ORDERED: activated charcoaL 25 GM/120 ML TUBE ONE (17:03)
[2021-07-20] MEDS ORDERED: NA CHLORIDE 0.9% 1,000 ML ONE (17:04)
[2021-07-20] MEDS ORDERED: ACT CHARCOAL/SORB 50 GM/240ML ONE (17:04)
[2021-07-20 17:10] LABS: Absolute Lymphocytes (CBC) 1.4 K/uL (0.7-4.9); Hematocrit 31.2 % (36.0-45.0); Lymphocytes % 16.9 % (15.3-44.8); MPV 6.9 fL (7.6-11.3); RBC Red Blood Cell Count 3.54 M/uL (3.86-4.86)
[2021-07-20 17:17] LABS: Protime INR 1.1
[2021-07-20 17:27] LABS: AST/SGOT 11 U/L (15-37); Albumin 3.2 g/dL (3.4-5.0); Alkaline Phosphatase 62 U/L (45-117); BUN Blood Urea Nitrogen 14 mg/dL (7-18); Bicarbonate 27 mmol/L (21-32); Bilirubin Direct 0.1 mg/dL (0-0.2); Bilirubin Total 1.5 mg/dL (0.2-1.0); Glucose Level 104 mg/dL (74-106); Magnesium 1.8 mg/dL (1.8-2.4); NT PRO-BNP 705 pg/mL (<450); Potassium 3.6 mmol/L (3.5-5.1); Protein, Total 6.2 g/dL (6.4-8.2); Sodium Level 142 mmol/L (136-145); Troponin I < 0.02 ng/mL (0.0-0.045)
[2021-07-20 17:36] LABS: ALT/SGPT < 6 U/L (12-78)
[2021-07-20 17:45] LABS: Arterial Blood Carboxyhemoglob 1.2 % (0-1.5); Blood Gas Oxyhemoglobin 95.3 % (94-97); Blood O2 Saturation 97.2 % (92-98.5)
--- NOTE | 2021-07-20 18:29 | EDPHYS ---
[facility] Name: Francy Griffiths Age: 86 yrs Sex: Female : 1935 Arrival Date: 07/20/2021 Time: 16:19 Bed 6 Private MD: ED Physician Abiodun Guzman HPI: 07/20 18:13 This 86 yrs old Female presents to ER via EMS with complaints of Overdose, jaime Suicidal Ideation. 18:13 The patient presents to the emergency department after a known overdose, that was jaime intentional. Context: Method: the patient has a confirmed or suspected ingestion, ALEVE 220 MG X 66 PILLS. Associated signs and symptoms: Pertinent positives: depression. Severity of symptoms: At their worst the symptoms were mild in the emergency department the symptoms are unchanged. The patient has not experienced similar symptoms in the past. Historical: - Allergies: 16:32 Codeine; iw 16:32 Demerol; iw 16:32 Iodine; iw 16:32 Sulfa (Sulfonamide Antibiotics); iw - Home Meds: 16:34 folic acid 1 mg Oral tab once daily [Active]; furosemide 40 mg Oral tab 1 tab once tr6 daily [Active]; levothyroxine 88 mcg tab [Active]; lisinopril 20 mg Oral tab [Active]; prednisone 1 mg Oral tab 2 tabs 2 times per day [Active]; sertraline 50 mg Oral tab 1 tab once daily [Active]; 16:33 lisinopril 10 mg Oral tab 1 tab once daily [Active]; furosemide 40 mg Oral tab 1 tab iw once daily [Active]; dextromethorphan-guaifenesin 10-200 mg/5 mL oral liqd every 6 hours [Active]; methotrexate sodium 25 mg Oral tab 1 tab once wkly [Active]; pravastatin 20 mg oral tab 1 tab nightly [Active]; Senokot 8.6 mg Oral tab 2 tabs once daily [Active]; Naproxen 220 mg Oral 3 times per day [Active]; potassium citrate 10 mEq (1,080 mg) oral TbER 2 tabs daily [Active]; folic acid 1 mg Oral tab 1 tab once daily [Active]; prednisone 2 mg Oral TbEC 1 tab once daily [Active]; levothyroxine 88 mcg tab 1 tab once daily [Active]; - PMHx: 16:32 Arthritis; bradycardia; Heart Murmur; hemophilia; Hyperlipidemia; Hypertension; iw Hypothyroidism; Osteoporosis; Rheumatoid Arthritis; 16:34 bradycardic; hemaphilia; tr6 - PSHx: 07/21 11:48 Cholecystectomy; Hysterectomy; ss - Immunization history:: Adult Immunizations up to date, Client reports receiving the 2nd dose of the Covid vaccine. - Social history:: Smoking status: Patient/guardian denies using tobacco, but has a distant history of tobacco abuse. ROS: 07/20 18:15 Constitutional: Negative for fever, chills, and weight loss, Eyes: Negative for injury, jaime pain, redness, and discharge, ENT: Negative for injury, pain, and discharge, Neck: Negative for injury, pain, and swelling, Cardiovascular: Negative for chest pain, palpitations, and edema, Respiratory: Negative for shortness of breath, cough, wheezing, and pleuritic chest pain, Abdomen/GI: Negative for abdominal pain, nausea, vomiting, diarrhea, and constipation, Back: Negative for injury and pain, : Negative for injury, bleeding, discharge, and swelling, MS/Extremity: Negative for injury and deformity, Skin: Negative for injury, rash, and discoloration, Neuro: Negative for headache, weakness, numbness, tingling, and seizure, Allergy/Immunology: Negative for hives, rash, and allergies, Endocrine: Negative for neck swelling, polydipsia, polyuria, polyphagia, and marked weight changes, Hematologic/Lymphatic: Negative for swollen nodes, abnormal bleeding, and unusual bruising. Psych: Positive for depression, suicidal ideation. Exam: 18:15 Constitutional: This is a well developed, well nourished patient who is awake, alert, jaime and in no acute distress. Head/Face: Normocephalic, atraumatic. Eyes: Pupils equal round and reactive to light, extra-ocular motions intact. Lids and lashes normal. Conjunctiva and sclera are non-icteric and not injected. Cornea within normal limits. Periorbital areas with no swelling, redness, or edema. ENT: Nares patent. No nasal discharge, no septal abnormalities noted. Tympanic membranes are normal and external auditory canals are clear. Oropharynx with no redness, swelling, or masses, exudates, or evidence of obstruction, uvula midline. Mucous membranes moist. Neck: Trachea midline, no thyromegaly or masses palpated, and no cervical lymphadenopathy. Supple, full range of motion without nuchal rigidity, or vertebral point tenderness. No Meningismus. Chest/axilla: Normal chest wall appearance and motion. Nontender with no deformity. No lesions are appreciated. Cardiovascular: Regular rate and rhythm with a normal S1 and S2. No gallops, murmurs, or rubs. Normal PMI, no JVD. No pulse deficits. Respiratory: Lungs have equal breath sounds bilaterally, clear to auscultation and percussion. No rales, rhonchi or wheezes noted. No increased work of breathing, no retractions or nasal flaring. Abdomen/GI: Soft, non-tender, with normal bowel sounds. No distension or tympany. No guarding or rebound. No evidence of tenderness throughout. Back: No spinal tenderness. No costovertebral tenderness. Full range of motion. Female : Normal external genitalia. Skin: Warm, dry with normal turgor. Normal color with no rashes, no lesions, and no evidence of cellulitis. MS/ Extremity: Pulses equal, no cyanosis. Neurovascular intact. Full, normal range of motion. Neuro: Awake and alert, GCS 15, oriented to person, place, time, and situation. Cranial nerves II-XII grossly intact. Motor strength 5/5 in all extremities. Sensory grossly intact. Cerebellar exam normal. Normal gait. 18:15 Cardiovascular: Rate: bradycardic, actual rate is 56 bpm, Rhythm: regular, Pulses: no pulse deficits are appreciated, Heart sounds: normal, Edema: is not appreciated, JVD: is not appreciated. 18:15 ECG was reviewed by the Attending Physician. 18:15 Psych: Behavior/mood is pleasant, Affect is calm, Oriented to Patient has no thoughts/intents to harm self or others. Judgement / Insight is normal. Memory is normal. Delusions/hallucinations are not present. Vital Signs: 16:26 BP 175 / 41; Pulse 41; Resp 16; Temp 98.3; Pulse Ox 100% on R/A; iw 17:00 BP 157 / 47; Pulse 40; Resp 18; Pulse Ox 100% on R/A; Pain 0/10; tr6 18:21 BP 167 / 52; Pulse 61; Resp 18; Pulse Ox 100% on R/A; Pain 0/10; tr6 18:31 BP 167 / 52; Pulse 59; Resp 19; Pulse Ox 100% on R/A; es2 19:30 BP 145 / 61; Pulse 61; Resp 16; Pulse Ox 99% on R/A; em 22:30 BP 147 / 48; Pulse 46; Resp 16; Pulse Ox 99% on R/A; em 09/20 01:30 BP 138 / 53; Pulse 50; Resp 16; Pulse Ox 99% on R/A; em 05:53 BP 156 / 44; Pulse 43; Resp 18; Pulse Ox 99% on R/A; Pain 0/10; em 08:00 BP 118 / 39; tr6 12:58 BP 153 / 50; Pulse 45; Resp 18; Pulse Ox 95% ; Pain 0/10; ch5 MDM: 07/20 16:31 Patient medically screened. jaime 18:21 Differential diagnosis: hypoglycemia, drug withdrawal. acute psychotic break, jaime depression. Differential Diagnosis altered mental status. Data reviewed: vital signs, nurses notes, EMS record, lab test result(s), EKG. Data interpreted: scratch finisher: rate is 56 beats/min, rhythm is regular, Pulse oximetry: on room air is 100 %. Test interpretation: by ED physician or midlevel provider: ECG, plain radiologic studies. Counseling: I had a detailed discussion with the patient and/or guardian regarding: the historical points, exam findings, and any diagnostic results supporting the discharge/admit diagnosis, lab results, radiology results, the need to transfer to another facility, for higher level of care, [facility] does not immediately have the required specialist. 18:23 ED course: COOPERATIVE, DEPRESSED , THOUGHTS OF SUICIDE, TIRED OF LIVING. jaime 07/21 06:11 ED course: Resting comfortably, no acute distress, vital signs stable, no focal mh7 neurological deficits. Cooperative, appropriate throughout the night. Still awaiting possible transfer to a psychiatric facility.. 07/20 16:26 Order name: Acetaminophen; Complete Time: 17:52 07/20 16:26 Order name: Basic Metabolic Panel; Complete Time: 17:52 07/20 16:26 Order name: CBC with Diff; Complete Time: 17:52 07/20 16:26 Order name: ETOH Level; Complete Time: 17:52 07/20 16:26 Order name: Hepatic Function; Complete Time: 17:52 07/20 16:26 Order name: PT-INR; Complete Time: 17:52 07/20 16:26 Order name: Ptt, Activated; Complete Time: 17:52 07/20 16:26 Order name: Salicylate; Complete Time: 19:18 07/20 16:26 Order name: Urine Drug Screen; Complete Time: 19:18 07/20 16:29 Order name: ABG; Complete Time: 17:52 [facility] 07/20 17:06 Order name: Troponin I; Complete Time: 17:52 [facility] 07/20 16:26 Order name: EKG; Complete Time: 16:27 07/20 16:26 Order name: EKG - Nurse/Tech; Complete Time: 16:36 07/20 16:29 Order name: XRAY Chest (1 view); Complete Time: 17:52 [facility] 07/20 17:06 Order name: NT PRO-BNP; Complete Time: 17:52 [facility] 07/20 17:06 Order name: Magnesium; Complete Time: 17:52 [facility] 07/20 18:24 Order name: Chem 7: REDRAW AT 930PM [facility] 07/20 18:25 Order name: Basic Metabolic Panel; Complete Time: 23:21 [facility] 07/20 18:38 Order name: Urine Dipstick-Ancillary; Complete Time: 19:18 [facility] 07/20 20:03 Order name: SARS-COV-2 RT PCR; Complete Time: 23:21 [facility] 07/21 07:59 Order name: Diet Regular; Complete Time: 08:00 tr6 07/20 16:26 Order name: IV Saline Lock; Complete Time: 17:01 07/20 16:26 Order name: Labs collected and sent; Complete Time: 17:01 07/20 16:26 Order name: Suicide Screening ([place]); Complete Time: 16:36 07/20 16:26 Order name: Urine Dipstick-Ancillary (obtain specimen); Complete Time: 18:40 07/20 16:29 Order name: Cardiac monitoring; Complete Time: 16:36 [facility] 07/20 16:29 Order name: O2 Per Protocol; Complete Time: 16:36 [facility] 07/20 16:29 Order name: O2 Sat Monitoring; Complete Time: 16:36 [facility] EC/19 18:15 Rate is 43 beats/min. Rhythm is regular. QRS [place] is Normal. CT interval is normal. QRS jaime interval is normal. QT interval is normal. No Q waves. T waves are Normal. No ST changes noted. Clinical impression: Sinus bradycardia and No evidence of ischemia. Interpreted by me. Reviewed by me. Administered Medications: 17:15 Drug: Charcoal (activated charcoal) Suspension 75 grams Route: PO; jd3 18:12 Follow up: Response: No adverse reaction tr6 17:16 Drug: NS 0.9% 1000 ml Route: IV; Rate: 1 bolus; Site: right forearm; jd3 18:12 Follow up: Response: No adverse reaction; IV Status: Completed infusion; IV Intake: tr6 1000ml 17:16 Drug: ProTONIX (pantoprazole) 40 mg Route: IVP; Site: right forearm; jd3 17:21 Follow up: Response: No adverse reaction tr6 17:16 Drug: Zofran (Ondansetron) 4 mg Route: IVP; Site: right forearm; jd3 17:20 Follow up: Response: No adverse reaction tr6 07/21 00:40 Drug: Potassium Chloride 20 mEq Route: PO; em Disposition Summary: 07/20/21 18:28 Transfer Ordered Transfer Location: Psych Facility jaime Reason: Higher level of care jaime Condition: Fair jaime Problem: new jaime Symptoms: have improved jaime Accepting Physician: TO PSYCH , VOLUNTARY(07/21/21 13:02) ch5 Diagnosis - Suicidal ideations jaime - Suicide attempt - Aleve Overdose jaime - Major depressive disorder, recurrent, moderate jaime - Rheumatoid arthritis, unspecified jaime - Bradycardia, unspecified - history of jaime Forms: - Medication Reconciliation Form jaime - SBAR form jaime Signatures: Dispatcher [employer] EDMarcial Longoria MD MD cha Munoz, Edgar RN Regla Soto RN RN iw Smirch, Shelby, RN RN ss Davies, Jonathon, RN RN jd3 Holmes, Maurice, MD MD 7 Alejandra Zamarripa RN RN tr6 Percy Delgado RN RN ch5 Corrections: (The following items were deleted from the chart) 07/20 17:06 16:30 MAGNESIUM+C.LAB.BRZ ordered. EDMS EDMS 17: 16:30 PROBNP+C.LAB.BRZ ordered. EDMS EDMS 17:06 16:30 TROPONIN (EMERG DEPT USE ONLY)+C.JOSE ANTONIO.ABHINAV ordered. EDMS EDMS 18:47 18:28 TO PSYCH , VOLUNTARY [facility] 19:02 18:15 CORONAVIRUS+MR.LAB.ABHINAV ordered. EDMS EDMS 07/21 13:02 07/20 18:47 TO PSYCH , VOLUNTARY [facility] ch5
--- NOTE | 2021-07-20 18:29 | ER ---
Nurse's Notes [facility] Name: Francy Griffiths Age: 86 yrs Sex: Female : 1935 Arrival Date: 07/20/2021 Time: 16:19 Bed 6 Private MD: Diagnosis: Suicidal ideations;Suicide attempt-Aleve Overdose;Major depressive disorder, recurrent, moderate;Rheumatoid arthritis, unspecified;Bradycardia, unspecified-history of Presentation: 07/20 16:20 Chief complaint: EMS states: pt took 66 Aleve tabs about 30 minutes ago, pt states she iw wants to end it all, got into an argument with her son and decided to take the pills, states she has been hiding the bottle of Aleve, EMS reports pt vomited once PICU NURSE, was blue in color, gave 4 mg Zofran and fluid bolus. 16:24 Coronavirus screen: At this time, the client does not indicate any symptoms associated iw with coronavirus-19. Ebola Screen: Patient negative for fever greater than or equal to 101.5 degrees Fahrenheit, and additional compatible Ebola Virus Disease symptoms Patient denies exposure to infectious person. Patient denies travel to an Ebola-affected area in the 21 days before illness onset. No symptoms or risks identified at this time. Initial Sepsis Screen: Does the patient meet any 2 criteria? No. Patient's initial sepsis screen is negative. Does the patient have a suspected source of infection? No. Patient's initial sepsis screen is negative. Risk Assessment: Do you want to hurt yourself or someone else? Patient reports desire/thoughts of hurting themselves or someone else. Provider notified. 16:24 Method Of Arrival: EMS: [facility] iw 16:24 Acuity: DIONTE 2 iw 16:31 Onset of symptoms was July 20, 2021. iw Historical: - Allergies: 16:32 Codeine; iw 16:32 Demerol; iw 16:32 Iodine; iw 16:32 Sulfa (Sulfonamide Antibiotics); iw - Home Meds: 16:34 folic acid 1 mg Oral tab once daily [Active]; furosemide 40 mg Oral tab 1 tab once tr6 daily [Active]; levothyroxine 88 mcg tab [Active]; lisinopril 20 mg Oral tab [Active]; prednisone 1 mg Oral tab 2 tabs 2 times per day [Active]; sertraline 50 mg Oral tab 1 tab once daily [Active]; 16:33 lisinopril 10 mg Oral tab 1 tab once daily [Active]; furosemide 40 mg Oral tab 1 tab iw once daily [Active]; dextromethorphan-guaifenesin 10-200 mg/5 mL oral liqd every 6 hours [Active]; methotrexate sodium 25 mg Oral tab 1 tab once wkly [Active]; pravastatin 20 mg oral tab 1 tab nightly [Active]; Senokot 8.6 mg Oral tab 2 tabs once daily [Active]; Naproxen 220 mg Oral 3 times per day [Active]; potassium citrate 10 mEq (1,080 mg) oral TbER 2 tabs daily [Active]; folic acid 1 mg Oral tab 1 tab once daily [Active]; prednisone 2 mg Oral TbEC 1 tab once daily [Active]; levothyroxine 88 mcg tab 1 tab once daily [Active]; - PMHx: 16:32 Arthritis; bradycardia; Heart Murmur; hemophilia; Hyperlipidemia; Hypertension; iw Hypothyroidism; Osteoporosis; Rheumatoid Arthritis; 16:34 bradycardic; hemaphilia; tr6 - PSHx: 07/21 11:48 Cholecystectomy; Hysterectomy; ss - Immunization history:: Adult Immunizations up to date, Client reports receiving the 2nd dose of the Covid vaccine. - Social history:: Smoking status: Patient/guardian denies using tobacco, but has a distant history of tobacco abuse. Screenin/19 16:32 Abuse screen: Denies threats or abuse. Denies injuries from another. Nutritional tr6 screening: No deficits noted. Tuberculosis screening: No symptoms or risk factors identified. Fall Risk None identified. Assessment: 16:29 General: Appears in no apparent distress. comfortable, slender, Behavior is calm, tr6 cooperative, appropriate for age. Pain: Denies pain. Neuro: Level of Consciousness is awake, alert, obeys commands, Oriented to person, place, situation, Appropriate for age Public Health Analyst are equal bilaterally Moves all extremities. Neuro: Reports pt reports that she "took a bottle of aleve because she wanted to meet god after getting gin to a fight with her son". Cardiovascular: Patient's skin is warm and dry. Rhythm is sinus bradycardia. Respiratory: No deficits noted. GI: Abdomen is flat, non-distended, Bowel sounds present X 4 quads. Reports nausea, vomiting. : No deficits noted. EENT: No deficits noted. Derm: Skin is intact, Skin temperature is warm. Musculoskeletal: No deficits noted. 16:38 Reassessment: spoke with Rosalee from [facility] , advises to watch for GI iw bleed, acute renal failure, metabolic acidosis , give fluids, monitor urine output, obtain tox labs, CBC, comp met panel. ABG, monitor for 6-8 hours , can give plain charcoal if pt is protecting airway and has bowel sounds, advises against gastric lavage at this time. 17:19 Reassessment: pts son in waiting room. This RN asked pt if it was ok if pts son was in tr6 room with her. pt verbalized that she does wish to have the son in the room with her. This RN asked pt if she felt safe with son, pt states that she does feel safe with son. pts son brought in to room. 17:42 Reassessment: No changes from previously documented assessment. tr6 18:04 Reassessment: Patient and/or family updated on plan of care and expected duration. Pain tr6 level reassessed. MD Flores at bedside to assess pt and discuss POC. 18:14 Reassessment: Patient's son, Shaq Ocampo would like to be updated when facility for es2 transfer is known. [phone]. 18:39 Reassessment: Patient and/or family updated on plan of care and expected duration. Pain tr6 level reassessed. 19:30 Reassessment: Patient appears in no apparent distress at this time. Patient and/or em family updated on plan of care and expected duration. Pain level reassessed. 21:30 Reassessment: Patient appears in no apparent distress at this time. Patient and/or em family updated on plan of care and expected duration. Pain level reassessed. 23:30 Reassessment: Patient appears in no apparent distress at this time. Patient and/or em family updated on plan of care and expected duration. Pain level reassessed. 07/21 01:47 Reassessment: Patient appears in no apparent distress at this time. Patient and/or em family updated on plan of care and expected duration. Pain level reassessed. resting comfortably in bed. 04:34 Reassessment: Patient appears in no apparent distress at this time. No changes from em previously documented assessment. Patient and/or family updated on plan of care and expected duration. Pain level reassessed. pending bed assignment. 07:00 Reassessment: assumed care of pt resting comfortably in bed. denies need for assistance tr6 at this time. will continue to monitor. 07:30 Reassessment: Reassessment: pt denies SI HI at this time and would like to be tr6 discharged. MD Guzman informed. 09:56 Reassessment: breakfast tray given to pt. pt able to eat independently. tr6 11:28 Reassessment: Nurse to Nurse given to Michaela at [facility]. 11:36 Reassessment: Nurse to Nurse given to Juan C with [facility]. Awaiting a phone call back. 11:47 Reassessment: [facility] declined patient due to low heart rate per Juan C. 12:20 Reassessment: Report given to CÉSAR Hardwick at [facility]. Pt is voluntary at this time and consents to transportation. Son, Shaq notified. Overdose: 07/20 16:33 [place] Suicide Severity Screening: "In the past month, have you wished you were tr6 or wished you could go to sleep and not wake up?" Patient responds "yes." Based off client's responses, additional C-SSRS screening questions required. "In the past month, have you actually had any thoughts of killing yourself?" Patient responds "yes." Based off client's responses, additional C-SSRS screening questions required. "In your lifetime, have you ever done anything, started to do anything, or prepared to do anything to end your life?" Patient responds "no.". Patient took took a bottle of aleve in an attempt to kill herself. Vital Signs: 16:26 BP 175 / 41; Pulse 41; Resp 16; Temp 98.3; Pulse Ox 100% on R/A; iw 17:00 BP 157 / 47; Pulse 40; Resp 18; Pulse Ox 100% on R/A; Pain 0/10; tr6 18:21 BP 167 / 52; Pulse 61; Resp 18; Pulse Ox 100% on R/A; Pain 0/10; tr6 18:31 BP 167 / 52; Pulse 59; Resp 19; Pulse Ox 100% on R/A; es2 19:30 BP 145 / 61; Pulse 61; Resp 16; Pulse Ox 99% on R/A; em 22:30 BP 147 / 48; Pulse 46; Resp 16; Pulse Ox 99% on R/A; em 09/20 01:30 BP 138 / 53; Pulse 50; Resp 16; Pulse Ox 99% on R/A; em 05:53 BP 156 / 44; Pulse 43; Resp 18; Pulse Ox 99% on R/A; Pain 0/10; em 08:00 BP 118 / 39; tr6 12:58 BP 153 / 50; Pulse 45; Resp 18; Pulse Ox 95% ; Pain 0/10; ch5 ED Course: 07/20 16:19 Patient arrived in ED. eb 16:25 Triage completed. iw 16:28 Marcial Flores MD is Attending Physician. jaime 16:32 Resting quietly. Awaiting ED provider evaluation. tr6 16:32 Patient has correct armband on for positive identification. Fall risk band placed. Bed tr6 in low position. Call light in reach. Side rails up X2. crusher loader equipment operator on. Pulse ox on. NIBP on. Door closed. Noise minimized. Visitors limited. Lights dimmed. Moved to private room. Warm blanket given. Diet: Patient is NPO. Patient is placed in psych hold. 16:32 No provider procedures requiring assistance completed. Patient maintains SpO2 tr6 saturation greater than 95% on room air. 16:35 Arm band placed on right wrist. Patient placed in an exam room, on a stretcher, on tr6 arrt technologist, on pulse oximetry, Emesis basin given. EKG completed in triage. Results shown to MD. 16:41 XRAY Chest (1 view) In Process Unspecified. EDMS 17:01 Alejandra Zamarripa, RN is Primary Nurse. tr6 17:02 Inserted saline lock: 20 gauge in right forearm, using aseptic technique. Blood tr6 collected. 23:17 Initiated transfer at [facility] with Niurka. Requested the exclusionary forms be tt3 filled out and faxed to along with the pts chart and lab results. Exclusionary given to and informed Dylan Dobson RN of the request. 07/21 02:00 Niurka with [facility] called back and stated after their physician reviewed the tt3 chart he "feels that based on the pts age and acuity, the medical economics consultant should review the case." Per Niurka, the medical economics consultant will be in around 08:00. Information passed on to Dr. Villa. 08:29 spoke with Emiliano at [facility], transfer is still pending review. bd 08:44 faxed chart to [facility]. bd 08:56 faxed [facility] to [facility] and [facility] 09:[address] [facility]. bd 10:04 Giuseppe from [facility] called, states that the chart is being reviewed. bd 10:55 emiliano from [facility] called, states that psych dr has denied due to pt needing km bd psych. 10:55 IV discontinued, intact, bleeding controlled, No redness/swelling at site. Pressure tr6 dressing applied, IV removed by pt. 11:31 Attending Physician role handed off by Marcial Flores MD rn 11:31 Abiodun Guzman MD is Attending Physician. rn 11:48 pt accepted at [facility] by dr Gómez Vasquez, admin approval given bd by Michaela. Administered Medications: 07/20 17:15 Drug: Charcoal (activated charcoal) Suspension 75 grams Route: PO; jd3 18:12 Follow up: Response: No adverse reaction tr6 17:16 Drug: NS 0.9% 1000 ml Route: IV; Rate: 1 bolus; Site: right forearm; jd3 18:12 Follow up: Response: No adverse reaction; IV Status: Completed infusion; IV Intake: tr6 1000ml 17:16 Drug: ProTONIX (pantoprazole) 40 mg Route: IVP; Site: right forearm; jd3 17:21 Follow up: Response: No adverse reaction tr6 17:16 Drug: Zofran (Ondansetron) 4 mg Route: IVP; Site: right forearm; jd3 17:20 Follow up: Response: No adverse reaction tr6 07/21 00:40 Drug: Potassium Chloride 20 mEq Route: PO; em Intake: 07/20 18:12 IV: 1000ml; Total: 1000ml. tr6 Output: 07/21 10:18 Urine: 400ml (Voided); Total: 400ml. tr6 Outcome: 07/20 18:28 ER care complete, transfer ordered by . jaime 18:51 Transferred tr6 18:51 Patient is placed in psych hold 18:51 Condition: stable 18:51 Instructed on the need for transfer, medication usage, safety practices, Demonstrated understanding of instructions. 07/21 12:58 Transferred Transfer form completed. ch5 Transferred by ground EMS to [facility]. Condition: stable Instructed on the need for transfer, medication usage, safety practices. 13:02 Condition: Report given to EMS ch5 13:02 Patient left the ED. [facility] Signatures: Dispatcher [employer] EDMS Francisca Raman Corey, MD MD cha Munoz, Edgar, RN RN Regla Calles RN CÉSAR iw Abiodun Guzman MD MD rn Smirch, Shelby, RN RN ss Davies, Jonathon, RN RN jd3 Botello, Elizabeth eb Trim, [place] tt3 Alejandra Zamarripa RN RN tr6 Percy Delgado RN RN ch5 Samina Christianson RN RN es2 Corrections: (The following items were deleted from the chart) 07/20 16:25 16:20 Chief complaint: EMS states: pt took 66 Aleve tabs about 30 minutes ago, pt iw states she wants to end it all, got into an argument with her son and decided to take the pills, states she has been hiding the bottle of Aleve, EMS reports pt vomited once PICU NURSE, was blue in color, gave 4 mg iw 16:40 16:26 BP 175 / 41; Pulse 41bpm; Resp 16bpm; iw iw
[2021-07-20 18:40] LABS: Urine Blood Trace-intact (Negative); Urine Glucose Negative (Negative); Urine Protein Negative (Negative); Urine Specific Gravity 1.015 (1.005-1.030); Urine pH 6.5 (5.0-7.0)
[2021-07-20 19:09] LABS: Barbiturates NEGATIVE (NEGATIVE); Benzodiazepines NEGATIVE (NEGATIVE); Cocaine NEGATIVE (NEGATIVE); METHAMPHETAM NEGATIVE (NEGATIVE); Methadone NEGATIVE (NEGATIVE); Opiates NEGATIVE (NEGATIVE); Phencyclidine NEGATIVE (NEGATIVE); THC Cannibis NEGATIVE (NEGATIVE)
[2021-07-20 22:08] LABS: Potassium 3.3 mmol/L (3.5-5.1)
[2021-07-21] MEDS ORDERED: POTASSIUM CL SA 10 MEQ TAB PO ONE (00:57)
[2021-07-21 13:21] VITALS: TEMP 98.3
[2021-07-21 13:32] VITALS: BP 153/50; O2SAT 95
== END 2021-07-21 13:02 ==
LOC: ER 16:15
DX: T39.312A Poisoning by propionic acid derivatives, intentional self-harm, initial encounter (principal); F33.1 Major depressive disorder, recurrent, moderate; R00.1 Bradycardia, unspecified; M06.9 Rheumatoid arthritis, unspecified; I10 Essential (primary) hypertension; Z88.2 Allergy status to sulfonamides; Z88.5 Allergy status to narcotic agent; Z91.048 Other nonmedicinal substance allergy status; Z20.822 Contact with and (suspected) exposure to COVID-19
CPT/HCPCS: 96361; 93005; 85025; 80048 ×2; 36415; 80320; 83735; 80329 ×2; 85610; 80076; 85730; 81003; 84484; 83880; 80307; 71045; 82805; 96375; 96374; 99285; U0003; C9113; J7030; J2405

== ENCOUNTER 2021-09-05 10:43 | Emergency (ER) | payer OTHER ==
--- NOTE | 2021-09-05 11:05 | RAD REPORT ---
EXAM DESCRIPTION: CT - Head Brain Wo Cont - 09/05/2021 10:58 am CLINICAL HISTORY: Fall from bed Fall, trauma, head injury COMPARISON: Head Brain Wo Cont dated 06/09/2021 TECHNIQUE: All CT scans are performed using dose optimization technique as appropriate and may inclu de automated exposure control or mA/KV adjustment according to patient size. FINDINGS: No intracranial hemorrhage, hydrocephalus or extra-axial fluid collection.Moderate general ized brain atrophy is present with moderate periventricular and deep white matter chronic microvascul ar ischemic changes.No areas of brain edema or evidence of midline shift. Mild mucosal thickening of the sphenoid sinus. The paranasal sinuses and mastoids are otherwise clear . The calvarium is intact. Left vertebral artery is atherosclerotic IMPRESSION: No acute intracranial abnormality.
[2021-09-05] MEDS ORDERED: MORPHINE 4 MG/ML SYR ONE (11:09)
[2021-09-05] MEDS ORDERED: ONDANSETRON 4 MG/2 ML VIAL ONE (11:09)
--- NOTE | 2021-09-05 11:27 | RAD REPORT ---
EXAM DESCRIPTION: RAD - Hip Right 2 View - 09/05/2021 11:21 am CLINICAL HISTORY: PAIN COMPARISON: No comparisons FINDINGS: The proximal right femur demonstrates intratrochanteric fracture with varus angulation and rotation present. No underlying bone lesion is seen.
--- NOTE | 2021-09-05 11:39 | RAD REPORT ---
EXAM DESCRIPTION: RAD - Chest Single View - 09/05/2021 11:28 am CLINICAL HISTORY: right hip pain Chest pain. COMPARISON: Chest Single View dated 07/20/2021; Chest Single View dated 07/27/2020; Chest Single View dated 08/28/2018; Chest Single View dated 12/29/2017 FINDINGS: Portable technique limits examination quality. Mild pulmonary edema is seen. The heart is enlarged with small bilateral pleural effusions. No displa jalen fractures.Cervical hardware plate. IMPRESSION: Mild CHF.
[2021-09-05 11:57] LABS: Absolute Lymphocytes (CBC) 0.8 K/uL (0.7-4.9); Basophils % 0.2 % (0-1.3); Hematocrit 33.7 % (36.0-45.0); Lymphocytes % 6.2 % (15.3-44.8); MPV 7.1 fL (7.6-11.3); RBC Red Blood Cell Count 3.83 M/uL (3.86-4.86)
[2021-09-05 12:18] LABS: Protime INR 1.15
[2021-09-05 12:19] LABS: Albumin 2.7 g/dL (3.4-5.0); Bilirubin Total 0.6 mg/dL (0.2-1.0); Potassium 3.6 mmol/L (3.5-5.1); Protein, Total 6.6 g/dL (6.4-8.2)
--- NOTE | 2021-09-05 12:27 | ER ---
Nurse's Notes [facility] Name: Francy Griffiths Age: 86 yrs Sex: Female : 1935 Arrival Date: 09/05/2021 Time: 10:43 Bed 6 Private MD: Diagnosis: Right hip fracture;Hemophilia Presentation: 09/05 10:46 Chief complaint: EMS states: FALL YESTERDAY WITH IN HOUSE IMAGING. HIP FX NOTED TODAY, bp PT SENT TO ER. Coronavirus screen: At this time, the client does not indicate any symptoms associated with coronavirus-19. Ebola Screen: No symptoms or risks identified at this time. Initial Sepsis Screen: Does the patient meet any 2 criteria? No. Patient's initial sepsis screen is negative. Does the patient have a suspected source of infection? No. Patient's initial sepsis screen is negative. Risk Assessment: Do you want to hurt yourself or someone else? Patient reports no desire to harm self or others. Onset of symptoms is unknown. 10:46 Method Of Arrival: EMS: [facility] bp 10:46 Acuity: DIONTE 3 bp Triage Assessment: 10:58 General: Appears distressed, uncomfortable, Behavior is cooperative, appropriate for bp age, anxious. Pain: Complains of pain in left hip. EENT: No deficits noted. Neuro: AT BASELINE. Cardiovascular: Rhythm is sinus bradycardia. Respiratory: No deficits noted. GI: No signs and/or symptoms were reported involving the gastrointestinal system. : No signs and/or symptoms were reported regarding the genitourinary system. Derm: No deficits noted. Musculoskeletal: Bony deformity noted of left hip. Historical: - Allergies: 10:49 Codeine; bp 10:49 Demerol; bp 10:49 Iodine; bp 10:49 Sulfa (Sulfonamide Antibiotics); bp - Home Meds: 10:49 sertraline 100 mg oral tab 1 tab once daily [Active]; folic acid 1 mg Oral tab 1 tab bp once daily [Active]; prednisone 2 mg Oral TbEC 1 tab once daily [Active]; amlodipine 10 mg tab 1 tab once daily [Active]; potassium citrate 10 mEq (1,080 mg) Oral TbER 2 tabs daily [Active]; Methotrexate (Anti-Rheumatic) 2.5 mg Oral tab 1 tab once wkly [Active]; furosemide 40 mg Oral tab 1 tab once daily [Active]; lisinopril 40 mg oral tab 1 tab once daily [Active]; atorvastatin 10 mg oral tab 1 tab once daily [Active]; levothyroxine 88 mcg oral cap 1 cap once daily [Active]; melatonin 3 mg Oral tab [Active]; - Immunization history:: Adult Immunizations up to date. - Social history:: Smoking status: Patient denies any tobacco usage or history of. Screenin:50 Abuse screen: Denies threats or abuse. Denies injuries from another. Nutritional bp screening: No deficits noted. Tuberculosis screening: No symptoms or risk factors identified. Fall Risk None identified. Assessment: 10:50 Reassessment: SEE TRIAGE NOTE. bp 11:49 Reassessment: No changes from previously documented assessment. Patient and/or family bp updated on plan of care and expected duration. Pain level reassessed. PT RETURNED FROM RAD. 13:00 Reassessment: No changes from previously documented assessment. Patient and/or family bp updated on plan of care and expected duration. Pain level reassessed. 14:49 Reassessment: EMS AT B/S FOR TRANSPORT. PT [place] bp Vital Signs: 10:46 BP 135 / 78; Pulse 58; Resp 16; Temp 99.1; Pulse Ox 98% ; Weight 55.34 kg; Height 4 ft. bp 9 in. (144.78 cm); Pain 10/10; 11:49 BP 139 / 69; Pulse 52; Resp 15; Pulse Ox 93% ; bp 13:00 BP 90 / 48; Pulse 47; Resp 66; Pulse Ox 96% ; bp 14:55 BP 105 / 50; Pulse 50; Resp 16; Pulse Ox 95% ; bp 10:46 Body Mass Index 26.40 (55.34 kg, 144.78 cm) bp ED Course: 10:43 Patient arrived in ED. ss 10:46 Taco Perry NP is PHCP. pm1 10:46 Helen Palacios MD is Attending Physician. pm1 10:46 Bubba Tucker, CÉSAR is Primary Nurse. bp 10:49 Triage completed. bp 10:50 Patient has correct armband on for positive identification. Bed in low position. Call bp light in reach. Side rails up X2. Adult w/ patient. 10:57 CT Head Brain wo Cont In Process Unspecified. EDMS 11:07 Arm band placed on. bp 11:21 Hip Right 2 View XRAY In Process Unspecified. EDMS 11:28 Chest Single View XRAY In Process Unspecified. EDMS 11:40 Inserted saline lock: 20 gauge in right forearm, using aseptic technique. Blood bp collected. 12:25 Fritz Stein is Hospitalizing Provider. pm1 13:19 initiated a transfer with Mimi from the [facility]. 13:27 administrative approval given by Mimi Santiago Rn/ patient has been accepted to [facility] ER/ Dr. Sudheer Le has accepted the patient in transfer/ report to be called to the er at [phone]. 14:05 Placed in gown. Warm blanket given. operations tech on. Pulse ox on. NIBP on. [facility] 14:57 No provider procedures requiring assistance completed. Patient transferred, IV remains bp in place. Administered Medications: 11:40 Drug: morphine 4 mg Route: IVP; Site: right forearm; bp 12:50 Follow up: Response: No adverse reaction bp 11:40 Drug: Zofran (Ondansetron) 4 mg Route: IVP; Site: right forearm; bp 12:50 Follow up: Response: No adverse reaction bp Outcome: 12:27 Decision to Hospitalize by Provider. pm1 13:15 ER care complete, transfer ordered by . pm1 14:57 Transferred by ground EMS to [facility]. bp 14:57 Condition: stable 14:57 Instructed on the need for transfer. 14:58 Patient left the ED. bp Signatures: Dispatcher [employer] EDMS Mahi Anthony RN RN ss Taco Perry NP ROTARY FURNACE TENDER 1 Linda Fong [facility] Bubba Tucker RN RN bp Samina Escalona Corrections: (The following items were deleted from the chart) 10:58 10:49 PMHx: Osteoporosis; bp bp 10:58 10:49 PMHx: Arthritis; bp bp 10:58 10:49 PMHx: Hypertension; bp bp 10:58 10:49 PMHx: Hyperlipidemia; bp bp 10:58 10:49 PMHx: Hypothyroidism; bp bp 10:58 10:49 PMHx: Rheumatoid Arthritis; bp bp 10:58 10:49 PMHx: bradycardic; bp bp 10:58 10:49 PMHx: hemaphilia; bp bp 10:58 10:49 PMHx: Heart Murmur; bp bp 10:58 10:49 PMHx: BRADYCARDIA; bp bp 10:58 10:49 PMHx: hemophilia; bp bp 10:58 10:49 PSHx: Cholecystectomy; bp bp 10:58 10:49 PSHx: hysterectomy; bp bp
--- NOTE | 2021-09-05 12:27 | EDPHYS ---
Physician Documentation [facility] Name: Francy Griffiths Age: 86 yrs Sex: Female : 1935 Arrival Date: 09/05/2021 Time: 10:43 Bed 6 Private MD: ED Physician Helen Palacios HPI: 09/05 11:17 This 86 yrs old Female presents to ER via EMS with complaints of Right hip pm1 pain. 11:17 The patient or guardian reports pain. that occurred at a alf or assisted pm1 living facility, sustained from a fall, the right lower extremity is shortened, right leg is externally rotated, The patient is not able to ambulate. Patient is not able to bear weight. The complaints affect the right hip. Onset: The symptoms/episode began/occurred yesterday. Associated signs and symptoms: Loss of consciousness: the patient experienced no loss of consciousness, Pertinent negatives: chest pain, shortness of breath, Headache, head injury, neck pain. Severity of symptoms: in the emergency department the symptoms are unchanged. The patient has not experienced similar symptoms in the past. The patient has not recently seen a physician. Patient fell out of bed while sleeping yesterday morning. Patient with x-ray to hips and pelvis in alf and sent to the ER due to right hip fracture on x-ray. Historical: - Allergies: 10:49 Codeine; bp 10:49 Demerol; bp 10:49 Iodine; bp 10:49 Sulfa (Sulfonamide Antibiotics); bp - Home Meds: 10:49 sertraline 100 mg oral tab 1 tab once daily [Active]; folic acid 1 mg Oral tab 1 tab bp once daily [Active]; prednisone 2 mg Oral TbEC 1 tab once daily [Active]; amlodipine 10 mg tab 1 tab once daily [Active]; potassium citrate 10 mEq (1,080 mg) Oral TbER 2 tabs daily [Active]; Methotrexate (Anti-Rheumatic) 2.5 mg Oral tab 1 tab once wkly [Active]; furosemide 40 mg Oral tab 1 tab once daily [Active]; lisinopril 40 mg oral tab 1 tab once daily [Active]; atorvastatin 10 mg oral tab 1 tab once daily [Active]; levothyroxine 88 mcg oral cap 1 cap once daily [Active]; melatonin 3 mg Oral tab [Active]; - Immunization history:: Adult Immunizations up to date. - Social history:: Smoking status: Patient denies any tobacco usage or history of. ROS: 11:17 Constitutional: Negative for fever, chills, and weight loss, Neck: Negative for injury, pm1 pain, and swelling, Cardiovascular: Negative for chest pain, palpitations, and edema, Respiratory: Negative for shortness of breath, cough, wheezing, and pleuritic chest pain, Abdomen/GI: Negative for abdominal pain, nausea, vomiting, diarrhea, and constipation, Back: Negative for injury and pain. 11:17 Skin: Negative for injury, rash, and discoloration, Neuro: Negative for headache, weakness, numbness, tingling, and seizure. 11:17 MS/extremity: Positive for pain, of the right hip. 11:17 All other systems are negative. Exam: 11:17 Constitutional: This is a well developed, well nourished patient who is awake, alert, pm1 and in no acute distress. Head/Face: Normocephalic, atraumatic. 11:17 Skin: Warm, dry with normal turgor. Normal color with no rashes, no lesions, and no evidence of cellulitis. 11:17 Eyes: Exam is negative for acute changes, Periorbital structures: appear normal, Extraocular movements: no acute changes. 11:17 ENT: Exam is negative for acute changes, Mouth: Lips: normal, moist, Oral mucosa: normal, pink and intact, moist. 11:17 Neck: Exam negative for External neck: tenderness, is not appreciated, C-spine: vertebral tenderness, is not appreciated. 11:17 Cardiovascular: Exam negative for acute changes, Rate: bradycardic, Rhythm: regular, Pulses: no pulse deficits are appreciated, Heart sounds: normal, normal S1and S2. 11:17 Respiratory: Exam negative for acute changes, respiratory distress, shortness of breath, Breath sounds: are clear throughout. 11:17 Abdomen/GI: Inspection: abdomen appears normal, Palpation: abdomen is soft and non-tender, in all quadrants. 11:17 Musculoskeletal/extremity: Extremities: grossly normal except: noted in the right hip: tenderness. 11:17 Neuro: Exam negative for acute changes, Orientation: is normal, Mentation: is normal, Motor: is normal, moves all fours. Vital Signs: 10:46 BP 135 / 78; Pulse 58; Resp 16; Temp 99.1; Pulse Ox 98% ; Weight 55.34 kg; Height 4 ft. bp 9 in. (144.78 cm); Pain 10/10; 11:49 BP 139 / 69; Pulse 52; Resp 15; Pulse Ox 93% ; bp 13:00 BP 90 / 48; Pulse 47; Resp 66; Pulse Ox 96% ; bp 14:55 BP 105 / 50; Pulse 50; Resp 16; Pulse Ox 95% ; bp 10:46 Body Mass Index 26.40 (55.34 kg, 144.78 cm) bp MDM: 10:46 Patient medically screened. pm1 11:23 Data reviewed: vital signs. Data interpreted: Pulse oximetry: on room air is 98 %. pm1 Interpretation: normal. 11:48 Physician consultation: Stan Hernandez MD was called at 11:49, was contacted at 11:49, pm1 regarding consult, patient's condition, Not custom protection officer. Contacted him since patient considers him her orthopedic doctor. He is unable to perform surgery since he will be out of town. 12:25 Counseling: I had a detailed discussion with the patient and/or guardian regarding: the pm1 historical points, exam findings, and any diagnostic results supporting the discharge/admit diagnosis, lab results, radiology results, the need for further work-up and treatment in the hospital. 12:33 Physician consultation: Carlos Salazar MD was called at 12:33, was contacted at 12:33, pm1 regarding consult, patient's condition, and will see patient would like admission per Dr. Fritz Stein. 12:42 Physician consultation: Fritz Stein was called at 12:42, was contacted at 12:42, pm1 regarding admission, patient's condition, and will see patient. 13:09 Physician consultation: Carlos Salazar MD was called at 13:09, regarding patient's pm1 history of hemophilia, after a discussion of the case, a recommendation for transfer for higher level of care is made, due to lack of hemo/oncology. 09/05 10:48 Order name: CBC with Diff; Complete Time: 12:13 pm1 09/05 10:48 Order name: CMP; Complete Time: 12:20 pm1 09/05 10:48 Order name: Hip Right 2 View XRAY; Complete Time: 11:30 pm1 11/05 10:48 Order name: Chest Single View XRAY; Complete Time: 11:41 pm1 09/05 10:48 Order name: PT-INR; Complete Time: 12:20 pm1 09/05 11:19 Order name: COVID-19 SARS RT PCR (Document "Date of Onset" if Symptomatic); Complete eb Time: 12:52 09/05 10:48 Order name: IV Saline Lock; Complete Time: 11:47 pm1 09/05 10:49 Order name: CT Head Brain wo Cont; Complete Time: 11:16 pm1 09/05 10:49 Order name: EKG; Complete Time: 10:49 pm1 09/05 10:49 Order name: EKG - Nurse/Tech; Complete Time: 14:05 pm1 Administered Medications: 11:40 Drug: morphine 4 mg Route: IVP; Site: right forearm; bp 12:50 Follow up: Response: No adverse reaction bp 11:40 Drug: Zofran (Ondansetron) 4 mg Route: IVP; Site: right forearm; bp 12:50 Follow up: Response: No adverse reaction bp Disposition Summary: 09/05/21 13:15 Transfer Ordered Transfer Location: [facility] pm1 Reason: Higher level of care pm1 Condition: Stable(09/05/21 13:15) pm1 Problem: new(09/05/21 13:15) pm1 Symptoms: have improved(09/05/21 13:15) pm1 Accepting Physician: (09/05/21 14:58) bp Diagnosis - Right hip fracture pm1 - Hemophilia pm1 Forms: - Medication Reconciliation Form pm1 - SBAR form pm1 Addendum: 09/15/2021 05:21 Co-signature as Attending Physician, Helen luque a2 Signatures: Dispatcher [employer] EDMS Taco Perry NP DINING HOST pm1 Bubba Tucker, CÉSAR RN Helen Thomas MD MD ma2 Corrections: (The following items were deleted from the chart) 09/05 10:58 10:49 PMHx: Osteoporosis; bp bp 10:58 10:49 PMHx: Arthritis; bp bp 10:58 10:49 PMHx: Hypertension; bp bp 10:58 10:49 PMHx: Hyperlipidemia; bp bp 10:58 10:49 PMHx: Hypothyroidism; bp bp 10:58 10:49 PMHx: Rheumatoid Arthritis; bp bp 10:58 10:49 PMHx: bradycardic; bp bp 10:58 10:49 PMHx: hemaphilia; bp bp 10:58 10:49 PMHx: Heart Murmur; bp bp 10:58 10:49 PMHx: BRADYCARDIA; bp bp 10:58 10:49 PMHx: hemophilia; bp bp 10:58 10:49 PSHx: Cholecystectomy; bp bp 10:58 10:49 PSHx: hysterectomy; bp bp 13:14 12:27 Inpatient Admission pm1 pm1 13:14 12:27 Fritz Stein pm1 pm1 13:14 12:27 Telemetry/MedSurg (Inpatient) pm1 pm1 13:14 12:27 Stable pm1 pm1 13:14 12:27 new pm1 pm1 13:14 12:27 have improved pm1 pm1 13:14 12:27 Standard pm1 pm1 13:14 12:27 pm1 pm1 13:14 12:27 Right hip fracture pm1 pm1 14:58 13:15 MD pm1 bp
[2021-09-05 15:17] VITALS: TEMP 99.1
[2021-09-05 15:21] VITALS: BP 105/50; O2SAT 95
--- NOTE | 2021-09-08 18:33 | EKG ---
Test Date: 2021-09-05 Test Time: 13:56:37 Softball Player: EARL MEASUREMENT RESULTS: Intervals: Rate: 55 CO: 168 QRSD: 92 QT: 476 QTc: 455 Kelly: P: 52 CO: 168 QRS: 74 T: 32 INTERPRETIVE STATEMENTS: Sinus bradycardia Nonspecific ST and T wave abnormality Abnormal ECG Compared to ECG 07/20/2021 16:22:35 No significant changes Electronically Signed On 09-08-21 18:24:35 SWIMMING POOL SERVICEPERSON by Henri Hicks
--- OUTSIDE RECORDS SUMMARY | 2021-09-13 12:15 | XMS REPORT | Continuity of Care Document ---
:1935 Author Organization [facility] t Address [address] [place] [address] [address] [place] [address] Care Team Providers Name Role Phone Pretty-Pepe_A_AH Attending Clinician Unavailable Pretty-Pepe_A_AH Admitting Clinician Unavailable Payers Payer Name Policy Type Policy Number Effective Date Expiration Date S [facility] [id number] 2019 [employer] 00:00:00 (MEDICARE REPLACEMENT/ADVANT AGE - HMO) Problems Condition Condition Condition Status Onset Resolution Last Treating Co mments Source Name Details Category Date Date Treatment Clinician Date Arthropath Arthropath Problem Active 2019-0 [facility] ill[facility] y y 3-18 Family associated Associated 00:00: Pr actic with a with a 00 e neurologic Neurologic al al disorder Disorder Hypothyroi Hypothyroi Problem Active 2019-0 [facility] ill[facility] dism dism 3-18 Family 00:00: Practic 00 e Hyperlipid Hyperlipid Problem Active 2019-0 [facility] ill[facility] emia emia 3-18 Family 00:00: [...] Village 3-18 Family 00:00: Practic 00 e Allergies, Adverse Reactions, Alerts Allergy Allergy Status Severity Reaction(s) Onset Inactive Treating Comm ents Source Name Type Date Date Clinician Codeine Allergy Active Village to Family substanc Practic e e Iodine Allergy Active Anaphylaxis Vill age to Family substanc Practic e e Iodine Adverse Active Info Not [facility] Reaction Available [facility] [place] Demerol Adverse Active Info Not [facility] Reaction Available [facility] [place] SULFA Allergy Active Village (SULFONA to Family MIDE substanc Practic ANTIBIOT e e ICS) Social History Smoking Status Start Date Stop Date Source Heavy Tobacco Smoker [facility] geo Practice Medications Ordered Filled Start Stop Current Ordering Indication Dosage Frequency Signature Comments Components Source Medication Medication Date Date Medication? Clinician (SIG) Name Name Meclizine Meclizine Yes Stan [address] [facility] HCl HCl 2-17 Hernandez [facility] Blood Blood 2018-11 Yes Stan as [facility] Glucose Glucose 0-13 Hernandez directed [facility] - Test Strip Test Strip 00:00: (DISPENSE [facility] 00 BLOOD GLUCOSE [facility] TEST ent STRIPS OF Clinics RECORD) furosemide furosemide No 1 Q1D furosemide [facility] 40 mg 40 mg 40 mg Family tablet Take tablet Take tablet Practic 1 tablet 1 tablet Take 1 e every day every day tablet by oral by oral every day route. route. by oral route. levothyroxi levothyroxi No 1capsul Q1D levothyrox [facility] ne 88 mcg ne 88 mcg e(s) ine 88 mcg Family capsule capsule capsule Practi c Take 1 Take 1 Take 1 e capsule capsule capsule every day every day every day by oral by oral by oral route route route before before before meals. meals. meals. lisinopril lisinopril No 1 Q1D lisinopril [facility] 20 mg 20 mg 20 mg [...] oral route. pravastatin pravastatin No 1 Q1D pravastati [facility] 20 mg 20 mg n 20 mg Family tablet Take tablet Take tablet Practic 1 tablet 1 tablet Take 1 e every day every day tablet by oral by oral every day route. route. by oral route. Pravastatin Pravastatin Yes Stan [address] [facility] Sodium Sodium Hernandez in evening [facility] Prednisone Prednisone Yes Stan [address] [facility] Hernandez with food [facility] - or milk Memoria l [facility] Furosemide Furosemide Yes Stan [address] [facility] Hernandez [facility] Synthroid Synthroid Yes Stan [address] [facility] Hernandez on an [facility] - empty [facility] stomach in l the [facility] Clinics Sertraline Sertraline Yes Stan [address] [facility] HCl HCl Hernandez [facility] l [facility] ent Clinics Methotrexat Methotrexat Yes Stan as [facility] e e Hernandez directed kes - [facility] ent Clinics Lisinopril Lisinopril Yes Stan [address] [facility] Hernandez [facility] l [facility]ics Potassium Potassium Stan [address] [facility] Chloride Chloride 11-14 Hernandez [facility] - [facility]:00 [facility] :00 l [facility] ent Clinics Immunizations Ordered Immunization Filled Immunization Date Status Commen ts Source Name Name Influenza A Influenza A 2019-08-01 [facility] ly monovalent (H5N1), monovalent (H5N1), 00:00:00 Practice ADJUVANTED-2013 ADJUVANTED-2013 pneumococcal pneumococcal 2017-09-01 [facility] polysaccharide PPV23 polysaccharide PPV23 00:00:00 Practice Vital Signs Vital Name Observation Time Observation Value Comments Source Height 2020-01-23 00:00:00 57 [in_i] [facility] BMI (Body Mass 2020-01-23 00:00:00 29.9 kg/m2 [facility] Family Index) Practice Body Weight 2020-01-23 00:00:00 138 [lb_av] [facility] Procedures Procedure Date / Time Performed Performing Clinician [facility] Procedure on Brain [facility] Famil y Practice Uterine Myomectomy [facility] Famil y [facility] Spinal Disk Surgery [facility] ly Add-on Practice Encounters Start End Encounter Admission Attending Care Care Encounter Source Date/Time Date/Time Type Type Clinicians Facility Department ID 2021-09-12 Outpatient Pretty-Pepe LOPEZP VFP [id number] [facility] 23:28:50 _A_AH [id number] Family Practic e 2021-03-10 2021-03-10 Outpatient [facility]MLC [facility] [id number] [facility] 2021-03-05 2021-03-05 Outpatient [facility] [id number] [facility] 2021-02-17 2021-02-17 Outpatient [facility] [id number] [facility] 2021-02-12 2021-02-12 Outpatient [facility] [id number] [facility] 2020-11-21 2020-11-21 Outpatient [facility] [id number] [facility] 2020-11-19 2020-11-19 Outpatient [facility] [id number] [facility] 2020-11-14 2020-11-14 Outpatient [facility] [id number] [facility] 2020-09-23 2020-09-23 Outpatient [facility] [id number] [facility] 2020-09-20 2020-09-20 Outpatient [facility] [id number] [facility] 2020-09-04 2020-09-04 Outpatient [facility] [id number] [facility] 2020-08-20 2020-08-20 Outpatient [facility] [id number] [facility] 2020-07-24 2020-07-24 Outpatient [facility] [id number] [facility] 2020-07-24 2020-07-24 Outpatient [facility] [id number] [facility] 2020-07-10 2020-07-10 [facility] [id number] [facility] 15:15:00 15:15:00 [facility] 2020-07-01 2020-07-01 [facility] [id number] [facility] 15:14:00 15:14:00 [facility] Clin[facility] 2020-05-09 2020-05-09 [facility] [id number] [facility] 13:00:00 13:00:00 [facility] 2020-05-08 2020-05-08 [facility] [id number] [address] 13:50:00 13:50:00 [facility] ent Clinics 2020-02-08 2020-02-08 [facility] [id number] 13:15:00 13:15:00 [facility] 2020-01-23 2020-01-23 [facility] [place] - [id number] V illage 00:00:00 00:00:00 [facility] geo senior RN PATIENT CARE: Medical - Practi c [email or web address] [email or web address], [place] [address], [place] [address] , Ph. 2020-01-15 2020-01-15 [facility] [id number] 15:01:00 15:01:00 [facility] ent Clinics 2019-12-18 2019-12-18 [facility] [id number] 10:45:00 10:45:00 [facility] ent Clinics 2019-11-16 2019-11-16 Outpatient Mera Johnson [id number] [facility] 10:30:00 10:30:00 [facility] 2019-11-09 2019-11-09 Outpatient Mera Johnson [id number] [facility] 13:45:00 13:45:00 [facility] ent Clinics Results This patient has no known results.
== END 2021-09-05 14:58 | disposition short-term general hospital (02) ==
LOC: ER 10:43
DX: S72.001A Fracture of unspecified part of neck of right femur, initial encounter for closed fracture (principal); D66 Hereditary factor VIII deficiency; W06.XXXA Fall from bed, initial encounter; Z20.822 Contact with and (suspected) exposure to COVID-19; Z88.2 Allergy status to sulfonamides; Z88.5 Allergy status to narcotic agent; Z91.048 Other nonmedicinal substance allergy status
CPT/HCPCS: 93005; 85025; 36415; 85610; 80053; 70450; 71045; 73502; 96375; 96374; 99285; U0003; J2405

== ENCOUNTER 2021-12-21 09:24 | Emergency (ER) | payer OTHER ==
--- OUTSIDE RECORDS SUMMARY | 2021-12-21 09:27 | XMS REPORT | Continuity of Care Document ---
:1935 Author Organization [facility] t Address [address] [place] [address] [address]. [address] [place] [address] Care Team Providers Name Role Phone No Primary Care Physician Unavailable GAUDENCIO Attending Clinician Unavailable Gayle Attending Clinician Unavailable Pretty-Mbayo_A_AH Attending Clinician Unavailable Pretty-Mbayo_A_AH Admitting Clinician Unavailable Payers Payer Name Policy Type Policy Number Effective Date Expiration Date S angela MEDICARE PART A [id number] 1999 AND B 00:00:00 [facility] [id number] 2019 [facility] (MEDICARE REPLACEMENT/ADVANT AGE - HMO) Problems [...] Practic 00 e Essential Essential Problem Active 2019-0 Scott richard hypertensi Hypertensi 3-18 Fa gage on on 00:00: Practic 00 e Congestive Congestive Problem Active 2019-0 [place] heart Heart 3-18 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 00:00: Practic 00 e Rheumatoid Rheumatoid Problem Active 2019-0 [place] arthritis Arthritis 3-18 Fami ly 00:00: Practic 00 e Fall Fall Problem Active 2019-0 Village 3-18 Family 00:00: Practic 00 e Allergies, Adverse Reactions, Alerts Allergy Allergy Status Severity Reaction(s) Onset Inactive Treating Comm ents Source Name Type Date Date Clinician Iodine Adverse Active Info Not [facility] Reaction Available [facility] ent Clinics Demerol Adverse Active Info Not [facility] Reaction Available [facility] ent [facility] Codeine Allergy Active [facility] to Family substanc Practic e e Iodine Allergy Active Anaphylaxis [facility] age to Family substanc Practic e e SULFA Allergy Active [facility] (SULFONA to Family MIDE substan Practic ANTIBIOT e e ICS) Social History Social Habit Start Date Stop Date Quantity Comments Source Exposure to SARS-CoV-2 Not sure [facility] (event) Sex Assigned At [birth year] [facility] 00:00:00 00:00:00 Smoking Status Start Date Stop Date Source Tobacco smoking consumption unknown [facility] Heavy Tobacco Smoker [facility] Practice Medications Ordered Filled Start Stop Current Ordering Indication Dosage Frequency Signature Comments Components Source Medication Medication Date Date Medication? Clinician (SIG) Name Name Meclizine Meclizine Yes Stan [address] [facility] HCl HCl 2-17 [facility] needed [facility] 00 [facility] Blood Blood 2019- Yes Stan as [facility] Glucose Glucose 0-13 Hernandez directed [facility] - Test Strip Test Strip 00:00: (DISPENSE Memoria 00 BLOOD l GLUCOSE [facility] TEST ent STRIPS OF Clinics RECORD) Pravastatin Pravastatin Yes Stan [address] [facility] Sodium Sodium Hernandez in evening [facility] ent Clinics Prednisone Prednisone Yes Stan [address] [facility] Hernandez with food [facility] - or milk [facility] ent Clinics Furosemide Furosemide Yes Stan [address] [facility] Hernandez [facility] Clinics Synthroid Synthroid Yes Stan [address] [facility] Hernandez on an [facility] - empty [facility] stomach in l the [facility] Clinics Sertraline Sertraline Yes Stan [address] [facility] HCl HCl [facility] Methotrexat Methotrexat Yes Stan as [facility] e e Hernandez directed [facility] ent Clinics Lisinopril Lisinopril Yes Stan [address] [facility] Hernandez [facility] ent [facility] furosemide furosemide No 1 Q1D furosemide [facility] 40 mg 40 mg 40 mg Family tablet Take tablet Take tablet Practic 1 tablet 1 tablet Take 1 e every day every day tablet by oral by oral every day route. route. by oral route. levothyroxi levothyroxi No 1capsul Q1D levothyrox [facility] ne 88 mcg ne 88 mcg e(s) ine 88 mcg Family capsule capsule capsule Practi c Take 1 Take 1 Take 1 e capsule capsule capsule every day every day every day by oral by oral by oral route route route before before before meals. meals. meals. lisinopril lisinopril No 1 Q1D lisinopril [facility] 20 mg 20 mg 20 mg Family tablet Take tablet Take tablet Practic 1 tablet 1 tablet Take 1 e every day every day tablet by oral by oral every day route. route. by oral route. methotrexat methotrexat No 10mg Q1W methotrexa [facility] e 2.5 mg e 2.5 mg te 2.5 mg Corinna almonte tablet Take tablet Take tablet Practic 10 mg every 10 mg every Take 10 mg e week by week by every week oral route. oral route. by oral route. pravastatin pravastatin No [address] [facility] 20 mg n 20 mg Family tablet Take tablet Take tablet Practic 1 tablet 1 tablet Take 1 e every day every day tablet by oral by oral every day route. route. by oral route. Potassium Potassium No Stan [address] [facility] Chloride Chloride 11-14 [facility] - 00:00 Memoria :00 [facility] ent [facility] Immunizations Ordered Immunization Filled Immunization Date Status Commen ts Source Name Name Influenza A Influenza A 2019-08-01 [facility] Fami ly monovalent (H5N1), monovalent (H5N1), 00:00:00 Practice ADJUVANTED-2013 ADJUVANTED-2013 pneumococcal pneumococcal 2017-09-01 [facility] gage polysaccharide PPV23 polysaccharide PPV23 00:00:00 Practice Vital Signs Vital Name Observation Time Observation Value Comments Source Height 2020-01-23 00:00:00 57 [in_i] [facility] BMI (Body Mass 2020-01-23 00:00:00 29.9 kg/m2 [facility] Family Index) Practice Body Weight 2020-01-23 00:00:00 138 [lb_av] [facility] Procedures Procedure Date / Time Performed Performing Clinician [facility] e Procedure on Brain [facility] Famil y Practice Uterine Myomectomy [facility]amil [facility] Practice Spinal Disk Surgery [facility] Fami ly Add-on Practice Encounters Start End Encounter Admission Attending Care Care Encounter Source Date/Time Date/Time Type Type Clinicians Facility Department ID 2021-12-08 Outpatient GAUDENCIO [facility] [id number] [place] 01:04:39 [facility] 2021-12-06 Outpatient GAUDENCIO [facility] [id number] [place] 01:02:18 [facility] 2021-11-26 Outpatient Gayle, [facility] 14[facility]02:59 Yan[facility] [id number] [facility] 2021-11-26 Outpatient Gayle, [facility] 12:51:46 Yanira [id number] [facility] 2021-11-26 [facility] Yanira [id number] [facility] 2021-11-26 Outpatient Gayle, [facility] 12:22:12 Yanira [id number] [facility] 2021-11-26 Outpatient Gayle, [facility] 12:07:28 Yanira [id number] [facility] 2021-11-26 Outpatient Gayle, [facility] 11:55:26 Yanira [id number] [facility] 2021-11-26 Outpatient Gayle, [facility] [id number] [facility] 11:51:06 Yanira [id number] [facility] 2021-11-26 Outpatient Gayle, [facility] 11:44:47 Yanira [id number] [facility] 2021-11-26 Outpatient Gayle, [facility] 11:44:36 Yanira [id number] [facility] 2021-11-26 Outpatient POPEYE Araujo [facility] 11:01:09 Yanira [id number] [facility] 2021-11-26 Outpatient Gayle [facility] 10:59:26 Yanira [id number] [facility] 2021-11-26 Outpatient Gayle [facility] 10:58:13 Yanira [id number] [facility] 2021-10-06 Outpatient [facility] [id number] [place] 11:50:29 Health 2021-10-09 2021-10-09 Office GaudencioMALVIN [id number] [place] 09:30:00 10:14:16 Visit Sudheer DELGADO [id number] Health [id number] 2021-03-10 2021-03-10 Outpatient [facility] [id number] [facility] 2021-03-05 2021-03-05 Outpatient [facility] [id number] [facility] 2021-02-17 2021-02-17 Outpatient [facility] [id number] [facility] 2021-02-12 2021-02-12 Outpatient [facility] [id number] [facility] 2020-11-21 2020-11-21 Outpatient [facility] [id number] [facility] 2020-11-19 2020-11-19 Outpatient [facility] [id number] [facility] 2020-11-14 2020-11-14 Outpatient [facility] [id number] [facility] 2020-09-23 2020-09-23 Outpatient [facility] [id number] [facility] 2020-09-20 2020-09-20 Outpatient [facility] [id number] [facility] 2020-09-04 2020-09-04 Outpatient [facility] [id number] [facility] 2020-08-20 2020-08-20 Outpatient [facility] [id number] [facility] 2020-08-01 2020-08-01 Outpatient [facility] VFP VFP [id number] [facility] 06:04:00 06:04:00 _A_AH [id number] Family Practic e 2020-07-24 2020-07-24 Outpatient [facility] [id number] [facility] 2020-07-24 2020-07-24 Outpatient [facility] [id number] [facility] 2020-07-10 2020-07-10 [facility] [id number] [facility] 15:15:00 15:15:00 [facility] 2020-07-01 2020-07-01 [facility] [id number] 15:14:00 15:14:00 [facility] ent Clinics 2020-05-09 2020-05-09 [facility] [id number] 13:00:00 13:00:00 t [facility] s [facility] Clin[facility] 2020-05-08 2020-05-08 [facility] [id number] 13:50:00 13:50:00 [facility] l Medicine Outpati ent Clinics 2020-02-21 2020-02-21 Outpatient Syd [facility] [id number] [facility] 06:05:00 06:05:00 _A_AH [id number] Family Practic e 2020-02-08 2020-02-08 [facility] [id number] 13:15:00 13:15:00 [facility] Medicine Outpati ent Clinics 2020-01-23 2020-01-23 Cheryl [facility] [place] - [id number] [facility] 00:00:00 [facility]:00:[facility] Jamarcus senior [employer] EDGE BEVELER: Medical - Practi c [id number] [email or web address] [email or web address] [facility], [place] [address], [place] [address] , Ph. 2020-01-17 2020-01-17 Outpatient Syd [facility] [id number] 06:17:00 06:17:00 _A_AH [id number] Family Practic e 2020-01-15 2020-01-15 [facility] [id number] [facility] 15:01:00 15:01:00 [facility] Medicine Outpati ent Clinics 2019-12-18 2019-12-18 [facility] [id number] 10:45:00 10:45:00 [facility] l Medicine Outpati ent Clinics 2019-11-16 2019-11-16 [facility] [id number] 10:30:00 10:30:00 [facility] l Medicine Outpati ent Clinics 2019-11-09 2019-11-09 [facility] [id number] 13:45:00 13:45:00 [facility] Medicine Outpati ent Clinics Results This patient has no known results.
--- NOTE | 2021-12-21 10:30 | RAD REPORT ---
EXAM DESCRIPTION: CT - Head C Spine Mpr Wo Con - 12/21/2021 10:05 am CLINICAL HISTORY: Head and neck injury status post fall. Head and neck pain COMPARISON: 2011 TECHNIQUE: Computed axial tomography of the head and cervical spine was obtained. Sagittal and coronal reconstruction was performed. All CT scans are performed using dose optimization technique as appropriate and may include automated exposure control or mA/KV adjustment according to patient size. FINDINGS: An intracranial bleed is not seen. The ventricles are normal in caliber. An extra-axial fl uid collection is not noted. Mild low-density within periventricular, deep and subcortical white frank er likely ischemic changes secondary to small vessel disease 11 millimeter calcified meningioma along the right cerebral convexity without significant change. No surrounding edema .Fluid within the visualized sinuses and mastoids is not seen A cervical fracture is not visualized. No dislocation is noted. Plate, screws and bone plugs anterior ly fuse C5 through C7 IMPRESSION: No acute intracranial abnormality is seen. A cervical fracture is not visualized. If the patient continues to have symptoms to suggest intracra nial /spinal cord pathology then MRI would be recommended
--- NOTE | 2021-12-21 10:34 | RAD REPORT ---
EXAM DESCRIPTION: RAD - Shoulder Right 2 View - 12/21/2021 9:48 am CLINICAL HISTORY: Right shoulder pain FINDINGS: Anterior dislocation right humeral head. Hill-Sachs deformity
--- NOTE | 2021-12-21 10:35 | RAD REPORT ---
EXAM DESCRIPTION: RAD - Humerus Right - 12/21/2021 9:48 am CLINICAL HISTORY: Right arm pain status post fall FINDINGS: Anterior dislocation right humeral head. Hill-Sachs deformity
[2021-12-21] MEDS ORDERED: ONDANSETRON 4 MG/2 ML VIAL ONE (10:52)
[2021-12-21] MEDS ORDERED: FENTANYL CITR 100 MCG/2 ML ONE (10:55)
[2021-12-21] MEDS ORDERED: DERMABOND SKIN ADHESIVE TOP ONE (11:18)
[2021-12-21] MEDS ORDERED: LIDOCAINE 1% MPF 5 ML VIAL ONE (11:24)
--- NOTE | 2021-12-21 13:20 | RAD REPORT ---
EXAM DESCRIPTION: RAD - Shoulder 1 View - 12/21/2021 1:07 pm CLINICAL HISTORY: Right shoulder pain FINDINGS: Previously described humeral dislocation has been reduced
--- NOTE | 2021-12-21 14:02 | ER ---
Nurse's Notes [facility] Name: Francy Griffiths Age: 86 yrs Sex: Female : 1935 Arrival Date: 12/21/2021 Time: 09:29 Bed 19 Private MD: Diagnosis: Other dislocation of right shoulder pmdbm-Lvhf-Zdkma defomrity;Right eyebrow laceration without foreign body;Left elbow skin tear Presentation: 12/21 09:30 Chief complaint: EMS states: [facility], hematoma on ke1 head, left elbow skin tear, pain on Right elbow 156/73 HR 48 98%. Initial Sepsis Screen: Does the patient meet any 2 criteria? No. Patient's initial sepsis screen is negative. Does the patient have a suspected source of infection? No. Patient's initial sepsis screen is negative. Risk Assessment: Do you want to hurt yourself or someone else? Patient reports no desire to harm self or others. Onset of symptoms was December 21, 2021. 09:30 Method Of Arrival: EMS: [facility] ke1 09:30 Acuity: DIONTE 3 ke1 09:35 Care prior to arrival: None. Mechanism of Injury: Fall from standing position. Trauma jd3 event details: Injury occurred in the [facility], Injury occurred: in an institution. Injury occurred: December 21, 2021 Injury occurred at: 09:36. 11:08 Coronavirus screen: Vaccine status: unknown. Ebola Screen: No symptoms or risks ke1 identified at this time. Triage Assessment: 09:36 General: Appears uncomfortable, Behavior is cooperative. Pain: Complains of pain in ke1 left elbow Pain currently is 8 out of 10 on a pain scale. Aggravated by repositioning. 09:40 Neuro: Level of Consciousness is awake, alert, obeys commands, Oriented to person, ke1 place, time, situation. Respiratory: Airway is patent Breath sounds are clear bilaterally. 09:40 Cardiovascular: Capillary refill < 3 seconds Edema is 2+ to left foot, left toes, right ke1 foot and right toes. Derm: Skin is fragile, has skin tears on left elbow head R eyebrows area. Trauma Activation: Alert Physician: ED Physician; Name: juan; Notified At: 09:35; Arrived At: 09:35 Physician: General Surgeon; Name: ; Notified At: 09:35; Arrived At: Physician: Radiology; Name: yulisa naidu betty; Notified At: 09:35; Arrived At: 09:35 Physician: Respiratory; Name: ; Notified At: 09:35; Arrived At: Physician: Lab; Name: ; Notified At: 09:35; Arrived At: Historical: - Allergies: 09:36 Codeine; ke1 09:36 Iodine; ke1 09:36 Sulfa (Sulfonamide Antibiotics); ke1 09:36 Shellfish Containing Products; ke1 - Immunization history: Last tetanus immunization: - up to date. - Social history:: unknown, Smoking status: Patient/guardian denies using tobacco, the patient reports quitting approximately 1 years ago. Screenin:30 Fall Risk Fall in past 12 months (25 points). Secondary diagnosis (15 points) dementia, ke1 IV access (20 points). Ambulatory Aid- None/Bed Rest/Nurse Assist (0 pts). Gait- Normal/Bed Rest/Wheelchair (0 pts) Mental Status- Oriented to own ability (0 pts). Total Lau Fall Scale indicates High Risk Score (45 or more points). Fall prevention measures have been instituted. Side Rails Up X 2 Placed Close to Nursing Station Frequent Obs/Assessments Occuring. 09:42 Abuse screen: Denies threats or abuse. Nutritional screening: No deficits noted. jd3 Tuberculosis screening: No symptoms or risk factors identified. Primary Survey: 09:38 NO uncontrolled hemorrhage observed. A: The patient is alert. Airway: patent, No jd3 supplemental oxygen in use on arrival. Oral cavity: clear, Trachea midline. Breathing/Chest: Respiratory pattern: regular, Respiratory effort: spontaneous, unlabored, Chest inspection: symmetrical rise and fall of the chest. Circulation: Pulses: palpable right radial artery and left radial artery. Skin color: pink, Skin temperature: warm. Disability Alert. Exposure/Environment: All clothing and personal items were removed. Forensic evidence collection is not deemed to be indicated at this time. Items placed in patient belonging bag. There is no evidence of uncontrolled external bleeding. Obvious injury(ies) are noted at this time: pt reporting pain to left shoulder. pt also reporting hitting the right side of her forehead with small laceration that is not bleeding at this time A warming method has been applied: A warm blanket has been provided to the patient. 10:35 Reassessment Airway Airway Patent Oxygen No O2 Oral cavity Clear Trachea Midline jd3 Breathing/Chest Respiratory pattern Regular Respiratory effort Spontaneous Unlabored Chest inspection Symmetrical Circulation Pulses Palpable Color [place] Temperature Warm Disability Alert. Secondary Survey: 09:38 HEENT: No deficits noted. Gastrointestinal: No deficits noted. : No signs and/or jd3 symptoms were reported regarding the genitourinary system. Musculoskeletal: Circulation, motion, and sensation intact. Range of motion: intact in all extremities. Assessment: 09:35 General: see triage. ke1 10:00 Reassessment: No changes from previously documented assessment. ke1 11:00 Reassessment: No changes from previously documented assessment. ke1 11:30 Pain: Denies pain. Alleviated by medications, fentanyl. ke1 14:45 Reassessment: Report given to arianne Damon for patient package pick up because she needs [facility] to speak to director prior to set up transportation. Waiting patient registration specialist back. 15:05 Reassessment: Call back received from nurse Taveras stating that the road oiling truck driver of the [facility] van left with the [facility]; so the [facility] unable to provide transportation for the patient. Explained to darcy that the return of the patient should be handle but [facility] and that i will call her back after consulting my charge nurse. Charge nurse notified of marques on patient return to [facility]. Son in the room also update on transportation issue. Son says that he wants mom to return by ambulance because he is not able to take her back. 15:12 Reassessment: Attempt to reach [facility] but no answer. ke1 15:20 Reassessment: Attempt to reach nursing facility no answer. ke1 15:30 Reassessment: Attempt to reach [facility], still no answer. Son says that he spoke to stephany Taveras that told him that hospital is responsible for patient transportation. Explained to Son that we will resolve the issue in the best interest of the patient even though it is not the hospital responsibility to send back the patient. Patient comfortable , lying quietly in bed, denies pain. 15:56 Reassessment: spoke with nurse at [facility] for arranging a ride for pt discharge. jd3 the nurse at [facility] reported she will talk to her DON and see about arranging transportation via ambulance and will call back. 16:43 Reassessment: Able to reach rima taveras that anpologilbertoe is on his way to package pick up ke1 patient. son at bedside notified. 18:00 Reassessment: Still waiting for ambulance, comfort measures provide to patient. ke1 19:00 Reassessment: EMS in facility to package pick up patient on stretcher. ke1 Vital Signs: 09:30 BP 172 / 61; Pulse 55; Resp 17; Temp 97.5; Pulse Ox 97% on R/A; Weight 55.34 kg; Height ke1 4 ft. 9 in. (144.78 cm); 09:40 BP 172 / 61; Pulse 55; Resp 18; Temp 97.5; Pulse Ox 100% on R/A; ke1 11:15 BP 169 / 63; Pulse 64; Pulse Ox 95% on R/A; ke1 12:22 BP 164 / 70; Pulse 55; Resp 18; Pulse Ox 95% ; ss7 09:30 Body Mass Index 26.40 (55.34 kg, 144.78 cm) ke1 [place] Coma Score: 09:42 Eye Response: spontaneous(4). Verbal Response: oriented(5). Motor Response: obeys jd3 commands(6). Total: 15. Trauma Score (Adult): 09:42 Eye Response: spontaneous(1); Verbal Response: oriented(1); Motor Response: obeys jd3 commands(2); Systolic BP: > 89 mm Hg(4); Respiratory Rate: 10 to 29 per min(4); [place] Score: 15; Trauma Score: 12 ED Course: 09:29 Patient arrived in ED. em1 09:30 Isela Briseno, CÉSAR is Primary Nurse. ke1 09:30 Taco Perry NP is PHCP. pm1 09:31 Abiodun Guzman MD is Attending Physician. pm1 09:36 Triage completed. ke1 09:42 Patient has correct armband on for positive identification. Placed in gown. Bed in low jd3 position. Call light in reach. Side rails up X2. Pulse ox on. NIBP on. 09:42 Arm band placed on. jd3 09:42 Patient maintains SpO2 saturation greater than 95% on room air. Thermoregulation: warm jd3 blanket given to patient. 10:08 CT Head C Spine In Process Unspecified. EDMS 10:08 Humerus Right XRAY In Process Unspecified. EDMS 10:08 Shoulder Right (2 View) XRAY In Process Unspecified. EDMS 10:55 Missed attempt(s): 22 gauge in left hand. Bleeding controlled, band aid applied, jd3 catheter tip intact. 10:58 Inserted saline lock: 22 gauge in left antecubital area, using aseptic technique. jd3 13:07 Shoulder (1 View) XRAY In Process Unspecified. EDMS 13:55 Stan Hernandez MD is Referral Physician. pm1 14:00 Assist provider with laceration repair on right eyebrows using sutures. Set up tray. ke1 Performed by Taco Perry NP. 14:52 Primary Nurse role handed off by Isela Briseno RN ke1 14:59 Isela Briseno RN is Primary Nurse. ke1 18:00 IV discontinued. ke1 18:25 Noise minimized. Lights dimmed. Warm blanket given. Head of bed elevated. ke1 Administered Medications: 11:07 Drug: fentaNYL (PF) 25 mcg Route: IVP; Site: left antecubital; ke1 11:30 Follow up: Response: Pain is decreased ke1 11:07 Drug: Zofran (Ondansetron) 4 mg Route: IVP; Site: left antecubital; ke1 11:30 Follow up: Response: No adverse reaction ke1 14:14 Drug: Lidocaine (1 %) 5 ml Volume: 5 ml; Route: Infiltration; ke1 Intake: 14:21 PO: 0ml; Total: 0ml. ke1 Output: 14:21 Stool: 1 (Loose Stool) ; Total: 0ml. ke1 Outcome: 14:02 Discharge ordered by . pm1 14:20 [facility] Report called to Darcy ke1 15:00 Condition: stable ke1 15:00 Discharge instructions given to family. 19:09 Patient's length of stay in the Emergency Department was greater than 2 hours. ke1 treatment and ride for d/c to nursing homePatient's length of stay extended due to 19:11 Patient left the ED. ke1 Signatures: Dispatcher [employer] EDJesús Camara em1 Taco Perry, ZURDO FURNACE HAND pm1 Dilan Luo, RN RN jd3 Isela Briseno RN RN ke1 Jennifer Christianson, CÉSAR RN ss7 Corrections: (The following items were deleted from the chart) 09:38 A: The patient is alert. Airway: patent, No supplemental oxygen in use on [facility] arrival. Oral cavity: clear, Trachea midline. [facility] :42 09:38 Exposure/Environment: All clothing and personal items were removed. Forensic [facility] evidence collection is not deemed to be indicated at this time. Items placed in patient belonging bag. There is no evidence of uncontrolled external bleeding. Obvious injury(ies) are noted at this time: pt reporting pain to left shoulder A warming method has been applied: A warm blanket has been provided to the patient. [facility] 09:57 09:40 Derm: Skin is fragile, has skin tears on left elbow [place] [id number] 10:23 09:40 Cardiovascular: [facility] ke 14:59 14:38 Patient left the ED. [facility] ke 16:05 15:00 [facility] to [facility]. Report called to Darcy [place] [id number] 16:25 15:05 Reassessment: Call back received from nurse Darcy stating that the road oiling truck driver of the [facility] van left with the [place]; so the [facility]iary unable to provide transportation for the patient. Explained to darcy that the return of the patient should be handle but [facility]. Charge nurse notified of marques on patient return to [facility]. Son in the room also update on transportation issue. Son says that he wants mom to return by ambulance because he is not able to take her back. ke1
--- NOTE | 2021-12-21 14:02 | EDPHYS ---
Physician Documentation [facility] Name: Francy Griffiths Age: 86 yrs Sex: Female : 1935 Arrival Date: 12/21/2021 Time: 09:29 Bed 19 Private MD: ED Physician Abiodun Guzman HPI: 12/21 09:31 This 86 yrs old Female presents to ER via EMS with complaints of right shoulder pain. pm1 09:31 The patient or guardian complains of pain, that is acute. right shoulder. Context: The pm1 problem was sustained at a group home, resulted from a fall, from a standing position. Onset: The symptoms/episode began/occurred today. Modifying factors: the symptoms are alleviated by remaining still, The symptoms are aggravated by movement. Associated signs and symptoms: Pertinent negatives: chest pain, neck pain, shortness of breath, tingling. Severity of symptoms: in the emergency department the symptoms are unchanged. Treatment prior to arrival includes: no previous treatment. The patient has not experienced similar symptoms in the past. The patient has not recently seen a physician. Patient reports that she slipped while in the shower resulting in right shoulder pain, right eyebrow laceration and skin tear to left elbow. Historical: - Allergies: 09:36 Codeine; ke1 09:36 Iodine; ke1 09:36 Sulfa (Sulfonamide Antibiotics); ke1 09:36 Shellfish Containing Products; ke1 - Immunization history: Last tetanus immunization: - up to date. - Social history:: unknown, Smoking status: Patient/guardian denies using tobacco, the patient reports quitting approximately 1 years ago. ROS: 09:31 Constitutional: Negative for fever, chills, and weight loss, Neck: Negative for injury, pm1 pain, and swelling, Cardiovascular: Negative for chest pain, palpitations, and edema, Respiratory: Negative for shortness of breath, cough, wheezing, and pleuritic chest pain, Abdomen/GI: Negative for abdominal pain, nausea, vomiting, diarrhea, and constipation. 09:31 Neuro: Negative for headache, weakness, numbness, tingling, and seizure. 09:31 MS/extremity: Positive for pain, of the right shoulder. 09:31 Skin: Positive for abrasion(s), of the left elbow, laceration to right eyebrow. 09:31 All other systems are negative. Exam: 09:31 Constitutional: This is a well developed, well nourished patient who is awake, alert, pm1 and in no acute distress. Head/Face: Normocephalic, atraumatic. 09:31 Back: No spinal tenderness. No costovertebral tenderness. Full range of motion. 09:31 Eyes: Pupils: no acute changes, lateral aspect of right eyebrow laceration. 09:31 ENT: Exam is negative for acute changes, Mouth: no acute changes, Lips: normal, moist, Oral mucosa: normal, pink and intact, moist. 09:31 Neck: Exam negative for crepitus, swelling, tenderness. C-spine: vertebral tenderness, is not appreciated. 09:31 Chest/axilla: Inspection: normal, Palpation: is normal, no crepitus, no tenderness. 09:31 Cardiovascular: Exam negative for acute changes, Rate: normal, Rhythm: regular, Pulses: no pulse deficits are appreciated, Heart sounds: normal, normal S1and S2. 09:31 Respiratory: Exam negative for acute changes, respiratory distress, shortness of breath. 09:31 Abdomen/GI: Inspection: abdomen appears normal, Palpation: abdomen is soft and non-tender, in all quadrants. 09:31 Musculoskeletal/extremity: Extremities: grossly normal except: noted in the right shoulder: tenderness. 09:31 Skin: skin tear present to left elbow and laceration present to right eyebrow. 09:31 Neuro: Exam negative for acute changes, Orientation: is normal, Mentation: is normal, Motor: is normal, moves all fours. Vital Signs: 09:30 BP 172 / 61; Pulse 55; Resp 17; Temp 97.5; Pulse Ox 97% on R/A; Weight 55.34 kg; Height ke1 4 ft. 9 in. (144.78 cm); 09:40 BP 172 / 61; Pulse 55; Resp 18; Temp 97.5; Pulse Ox 100% on R/A; ke1 11:15 BP 169 / 63; Pulse 64; Pulse Ox 95% on R/A; ke1 12:22 BP 164 / 70; Pulse 55; Resp 18; Pulse Ox 95% ; ss7 09:30 Body Mass Index 26.40 (55.34 kg, 144.78 cm) ke1 [place] Coma Score: 09:42 Eye Response: spontaneous(4). Verbal Response: oriented(5). Motor Response: obeys jd3 commands(6). Total: 15. Trauma Score (Adult): 09:42 Eye Response: spontaneous(1); Verbal Response: oriented(1); Motor Response: obeys jd3 commands(2); Systolic BP: > 89 mm Hg(4); Respiratory Rate: 10 to 29 per min(4); [place] Score: 15; Trauma Score: 12 Procedures: 11:20 Reduction: of the right shoulder, using traction, , Immobilized with shoulder pm1 immobilizer. Patient tolerated well. Laceration: 14:06 Wound Repair of 2.5cm ( 1.0in ) subcutaneous laceration to middle aspect of right pm1 eyebrow and outer aspect of right eyebrow. Irregularly shaped.. Distal neuro/vascular/tendon intact. Anesthesia: Local anesthetic administered with 2 mls of 1% lidocaine. Wound prep: Extensive cleansing with hibiclenz by industrial machine system technician, Wound irrigation with saline by industrial machine system technician, Wound explored extensively, Copious irrigation. Skin closed with 6 5-0 Prolene using simple sutures and sterile technique. Dressed with Neosporin, 4x4's. Patient tolerated well. 14:06 Wound Repair of 6cm ( 2.4in ) subcutaneous laceration to left elbow. skin tear. Distal pm1 neuro/vascular/tendon intact. Wound prep: Extensive cleansing with hibiclenz by industrial machine system technician, Wound irrigation with saline by industrial machine system technician, Wound explored extensively, Copious irrigation. Skin closed with thin layer Adhesive skin closure using Dermabond. Dressed with 4x4's. Patient tolerated well. MDM: 09:31 Patient medically screened. pm1 13:54 Data reviewed: vital signs. Data interpreted: Pulse oximetry: on room air is 95 %. pm1 Interpretation: normal. 13:54 Counseling: I had a detailed discussion with the patient and/or guardian regarding: the pm1 historical points, exam findings, and any diagnostic results supporting the discharge/admit diagnosis, radiology results, the need for outpatient follow up, to return to the emergency department if symptoms worsen or persist or if there are any questions or concerns that arise at home. 12/21 09:33 Order name: CT Head C Spine; Complete Time: 10:31 pm1 12/21 09:33 Order name: Humerus Right XRAY; Complete Time: 10:40 pm1 12/21 09:33 Order name: Shoulder Right (2 View) XRAY; Complete Time: 10:40 pm1 12/21 11:12 Order name: Shoulder (1 View) XRAY; Complete Time: 13:30 pm1 12/21 10:43 Order name: IV Saline Lock; Complete Time: 10:58 pm1 12/21 11:12 Order name: Shoulder Immobilizer; Complete Time: 12:12 pm1 12/21 11:13 Order name: Dressing - Wound; Complete Time: 14:14 pm1 12/21 11:13 Order name: Gloves, Sterile; Complete Time: 14:14 pm1 12/21 11:13 Order name: Prolene, Sutures; Complete Time: 14:14 pm1 12/21 11:13 Order name: Setup Suture Tray; Complete Time: 14:14 pm1 12/21 11:13 Order name: Dermabond; Complete Time: 14:14 pm1 Administered Medications: 11:07 Drug: fentaNYL (PF) 25 mcg Route: IVP; Site: left antecubital; ke1 11:30 Follow up: Response: Pain is decreased ke1 11:07 Drug: Zofran (Ondansetron) 4 mg Route: IVP; Site: left antecubital; ke1 11:30 Follow up: Response: No adverse reaction ke1 14:14 Drug: Lidocaine (1 %) 5 ml Volume: 5 ml; Route: Infiltration; ke1 Disposition Summary: 12/21/21 14:02 Discharge Ordered Location: Home pm1 Problem: new pm1 Symptoms: have improved pm1 Condition: Stable pm1 Diagnosis - Right eyebrow laceration without foreign body pm1 - Left elbow skin tear pm1 - Other dislocation of right shoulder joint - Hill-Sachs defomrity(12/21/21 14:05) pm1 Followup: pm1 - With: Emergency Department - When: As needed - Reason: Worsening of condition Followup: pm1 - With: Private Physician - When: 2 - 3 days - Reason: Recheck today's complaints, Continuance of care, Re-evaluation by your physician Followup: pm1 - With: Stan Hernandez MD - When: 2 - 3 days - Reason: Recheck today's complaints, Continuance of care, Re-evaluation by your physician Discharge Instructions: - Discharge Summary Sheet pm1 - Tissue Adhesive Wound Care pm1 - Shoulder Dislocation pm1 - Laceration Care, Adult pm1 - How to Use a Shoulder Immobilizer pm1 Forms: - Medication Reconciliation Form pm1 - Thank You Letter pm1 - Antibiotic Education pm1 - Prescription Opioid Use pm1 Prescriptions: - Cephalexin 500 mg Oral Capsule - take 1 capsule by ORAL route every 8 hours for 10 days; 30 capsule; Refills: 0, pm1 Product Selection Permitted Addendum: 12/24/2021 23:13 Co-signature as Attending Physician, Abiodun Guzman MD I agree with the assessment and r n plan of care. Attestation: The patient's history, exam findings, diagnostics, and a summary of any interventions or procedures was reviewed in detail with Taco Perry NP. Signatures: Dispatcher [employer] EDAbiodun Iglesias MD MD rn Marinas, Patrick, NP [employer] pm1 Dilan Luo RN RN jd3 Isela Briseno RN RN ke1 Corrections: (The following items were deleted from the chart) 12/21 14:05 14:02 Other dislocation of right shoulder joint pm1 pm1 14:17 10:40 Conscious Sedation ordered. pm1 ke1
[2021-12-21 14:43] VITALS: TEMP 97.5
[2021-12-21 14:46] VITALS: O2SAT 95
[2021-12-21 14:47] VITALS: BP 164/70
== END 2021-12-21 19:11 | disposition home or self-care (01) ==
LOC: ER 09:24
PROC: 0RSJXZZ Reposition Right Shoulder Joint, External Approach (ICD-10-PCS; principal; 2021-12-21)
PROC: 0JQ10ZZ Repair Face Subcutaneous Tissue and Fascia, Open Approach (ICD-10-PCS; 2021-12-21)
PROC: 0JQH0ZZ Repair Left Lower Arm Subcutaneous Tissue and Fascia, Open Approach (ICD-10-PCS; 2021-12-21)
DX: S43.084A Other dislocation of right shoulder joint, initial encounter (principal); S01.111A Laceration without foreign body of right eyelid and periocular area, initial encounter; S51.012A Laceration without foreign body of left elbow, initial encounter; W18.30XA Fall on same level, unspecified, initial encounter; Y92.129 Unspecified place in nursing home as the place of occurrence of the external cause; Z88.2 Allergy status to sulfonamides; Z88.5 Allergy status to narcotic agent; Z91.013 Allergy to seafood; Z91.048 Other nonmedicinal substance allergy status
CPT/HCPCS: 70450; 72125; 73020; 73060; 73030; 96375; 96374; 99285; 23650; 12011; 12002; J3010; J2405

== ENCOUNTER 2022-02-06 08:40 | Inpatient (IN) | payer OTHER ==
--- OUTSIDE RECORDS SUMMARY | 2022-02-06 08:43 | XMS REPORT | Continuity of Care Document ---
:1935 Author Organization [facility] t Address [address] [place] [address] [address]. [address]. [address] [place] [address] Care Team Providers Name Role Phone No Primary Care Physician Unavailable GAUDENCIO Attending Clinician Unavailable Gayle Attending Clinician Unavailable Pretty-Mbayo_A_AH Attending Clinician Unavailable Pretty-Mbayo_A_AH Admitting Clinician Unavailable Payers Payer Name Policy Type Policy Number Effective Date Expiration Date S angela MEDICARE PART A [id number] 1999 AND B 00:00:00 [facility] - [id number] 2019 [facility] 00:00:00 (MEDICARE REPLACEMENT/ADVANT AGE - HMO) Problems [...] MIDE substan Practic ANTIBIOT e e ICS) Iodine Adverse Active Info Not [facility] Reaction Available [facility] Clinics Demerol Adverse Active Info Not [facility] Reaction Available [facility] Clinics Social History Social Habit Start Date Stop Date Quantity Comments Source Exposure to SARS-CoV-[address] [facility] (event) Sex Assigned At [address] [facility] 00:00:00 00:00:00 Smoking Status Start Date Stop Date Source Tobacco smoking consumption unknown [facility] Heavy Tobacco Smoker [facility] Practice Medications Ordered Filled Start Stop Current Ordering Indication Dosage Frequency Signature Comments Components Source Medication Medication Date Date Medication? Clinician (SIG) Name Name Meclizine Meclizine Yes Stan [address] [facility] HCl HCl 2-17 Hernandez as needed [facility] - 00:[facility]: [facility] [address] [facility] [address] [facility] Blood Blood 2019- Yes Stan as [facility] Glucose Glucose 0-13 Hernandez directed [facility] - Test Strip Test Strip 00:00: (DISPENSE [facility]oria 00 BLOOD l GLUCOSE [facility] TEST ent STRIPS OF Clinics RECORD) Pravastatin Pravastatin Yes Stan [address] [facility] Sodium Sodium Hernandez in evening [facility] ent Clinics Prednisone Prednisone Yes Stan [address] [facility] Hernandez with food [facility] Furosemide Furosemide Yes Stan [address] [facility] Hernandez [facility] Clinics Synthroid Synthroid Yes Stan [address] [facility] Hernandez on an [facility] - empty [facility] stomach in l the [facility] morning [facility] Clinics Sertraline Sertraline Yes Stan [address] [facility] HCl HCl Hernandez [facility] ent Clinics Methotrexat Methotrexat Yes Stan as [facility] e e Hernandez directed kes - [facility] ent Clinics Lisinopril Lisinopril Yes Stan [address] [facility] Hernandez [facility] furosemide furosemide No 1 Q1D furosemide [facility] 40 mg 40 mg 40 mg Family tablet Take tablet Take tablet Practic 1 tablet 1 tablet Take 1 e every day every day tablet by oral by oral every day route. route. by oral route. levothyroxi levothyroxi No 1capsul Q1D levothyrox [facility] ne 88 mcg ne 88 mcg e(s) ine 88 mcg Family capsule capsule capsule Practi c Take 1 Take 1 Take 1 e capsule capsule capsule every day every day every day by oral by oral by oral route route route before before before meals. meals. meals. lisinopril lisinopril No 1 Q1D lisinopril [facility] 20 mg 20 mg 20 mg Family tablet Take tablet Take tablet Practic 1 tablet 1 tablet Take 1 e every day every day tablet by oral by oral every day route. route. by oral route. methotrexat methotrexat No 10mg Q1W methotrexa [facility] e 2.5 mg e 2.5 mg te 2.5 mg Corinna almonte tablet Take tablet Take tablet Practic 10 mg every 10 mg every Take 10 mg e week by week by every week oral route. oral route. by oral route. pravastatin pravastatin No 1 Q1D [facility] 20 mg n 20 mg Family tablet Take tablet Take tablet Practic 1 tablet 1 tablet Take 1 e every day every day tablet by oral by oral every day route. route. by oral route. Potassium Potassium No Stan [address] [facility] Chloride Chloride 11-14 [facility] - 00:00 Memoria :[address] [facility] [address] [facility] Immunizations Ordered Immunization Filled Immunization Date Status Commen ts Source Name Name Influenza A Influenza A 2019-08-01 [facility] Fami ly monovalent (H5N1), monovalent (H5N1), 00:00:00 Practice ADJUVANTED-2013 ADJUVANTED-2013 pneumococcal pneumococcal 2017-09-01 [facility] gage polysaccharide PPV23 polysaccharide PPV23 00:00:00 Practice Vital Signs Vital Name Observation Time Observation Value Comments Source Height 2020-01-23 00:00:00 57 [in_i] [facility] BMI (Body Mass 2020-01-23 00:00:00 29.9 kg/m2 [facility] Body Weight 2020-01-23 00:00:00 138 [lb_av] [facility] Procedures Procedure Date / Time Performed Performing Clinician [facility] e Procedure on Brain [facility] Uterine Myomectomy [facility] Spinal Disk Surgery [facility] Fami ly Add-on Practice Encounters Start End Encounter Admission Attending Care Care Encounter Source Date/Time Date/Time Type Type Clinicians Facility Department ID 2021-12-08 Outpatient GAUDENCIO [facility] [id number] [place] 01:04:39 [facility] 2021-12-06 Outpatient GAUDENCIO [facility] [id number] [place] 01:02:18 [facility] 2021-11-26 Outpatient Gayle, [facility] 14[facility]02:59 Yanira [id number] [facility] 2021-11-26 Outpatient Gayle, [facility] 12:51:46 Yanira [id number] [facility] 2021-11-26 [facility] Yanira [id number] [facility] 2021-11-26 Outpatient Gayle, [facility] 12:22:12 Yanira [id number] [facility] 2021-11-26 Outpatient Gayle, [facility] 12:07:28 Yanira [id number] [facility] 2021-11-26 Outpatient Gayle, [facility] 11:55:26 Yanira [id number] [facility] 2021-11-26 Outpatient Gayle, [facility] [id number] [facility] 11:51:06 Yanira [id number] [facility] 2021-11-26 Outpatient Gayle, [facility] 11:44:47 Yanira [id number] [facility] 2021-11-26 Outpatient Gayle, [facility] 11:44:36 Yanira [id number] [facility] 2021-11-26 Outpatient POPEYE Araujo [facility] 11:01:09 Yanira [id number] [facility] 2021-11-26 Outpatient Gayle STPRATIK [facility] 10:59:26 Yanira [id number] [facility] 2021-11-26 Outpatient Gayle STPR[facility] 10:58:13 Yanira [id number] [facility] 2021-10-06 Outpatient [facility] [id number] [place] 11:50:29 Health 2021-10-09 2021-10-09 Office GaudencioMALVIN [id number] [place] 09:30:00 10:14:16 Visit Sudheer DELGADO [id number] Health [id number] 2021-03-10 2021-03-10 Outpatient [facility] [id number] [facility] 2021-03-05 2021-03-05 Outpatient [facility] [id number] [facility] 2021-02-17 2021-02-17 Outpatient [facility] [id number] [facility] 2021-02-12 2021-02-12 Outpatient [facility] [id number] [facility] 2020-11-21 2020-11-21 Outpatient [facility] [id number] [facility] 2020-11-19 2020-11-19 Outpatient [facility] [id number] [facility] 2020-11-14 2020-11-14 Outpatient [facility] [id number] [facility] 2020-09-23 2020-09-23 Outpatient [facility] [id number] [facility] 2020-09-20 2020-09-20 Outpatient [facility] [id number] [facility] 2020-09-04 2020-09-04 Outpatient [facility] [id number] [facility]00 [facility] 2020-08-20 2020-08-20 Outpatient [facility] [id number] [facility] 2020-08-01 2020-08-01 Outpatient [facility] VFP VFP [id number] [facility] 06:04:00 06:04:00 _A_AH [id number] Family Practic e 2020-07-24 2020-07-24 Outpatient [facility] [id number] [facility]00 [facility] 2020-07-24 2020-07-24 Outpatient [facility] [id number] [facility] 2020-07-10 2020-07-10 [facility] [id number] 15:15:00 15:15:00 [facility] 2020-07-01 2020-07-01 [facility] [id number] 15:14:00 15:14:00 t [facility] Clinics 2020-05-09 2020-05-09 [facility] [id number] 13:00:00 13:00:00 t [facility] 2020-05-08 2020-05-08 [facility] [id number] 13:50:00 13:50:00 [facility] l Medicine Outpati ent Clinics 2020-02-21 2020-02-21 Outpatient Syd [facility] [id number] [facility] 06:05:00 06:05:00 _A_AH [id number] Family Practic e 2020-02-08 2020-02-08 [facility] [id number] 13:15:00 13:15:00 [facility] Medicine Outpati ent Clinics 2020-01-23 2020-01-23 Cheryl [facility] [place] - [id number] V illage 00:00:00 00:00:00 [facility] Jamarcus senior LPTA: Medical - Practi c 9235 Leila [email or web address] [facility], [place] [address], [place] [address] , Ph. 2020-01-17 2020-01-17 Outpatient Syd [facility] [id number] 06:17:00 06:17:00 _A_AH [id number] Family Practic e 2020-01-15 2020-01-15 [facility] [id number] 15:01:00 15:01:00 [facility] Medicine Outpati ent Clinics 2019-12-18 2019-12-18 [facility] [id number] 10:45:00 10:45:00 [facility] l Medicine Outpati ent Clinics 2019-11-16 2019-11-16 [facility] [id number] 10:30:00 10:30:00 [facility] l Medicine Outpati ent Clinics 2019-11-09 2019-11-09 [facility] [id number] 13:45:00 13:45:00 [facility] Medicine Outpati ent Clinics Results This patient has no known results.
[2022-02-06] MEDS ORDERED: IPRATROPIUM BROM 0.5MG/2.5ML ONE ×2 (08:56→16:53)
[2022-02-06] MEDS ORDERED: ALBUTEROL 2.5 MG/3 ML NEB SOL ONE (08:56)
[2022-02-06 09:09] LABS: Hematocrit 29.8 % (36.0-45.0); MPV 6.5 fL (7.6-11.3); RBC Red Blood Cell Count 3.37 M/uL (3.86-4.86)
--- NOTE | 2022-02-06 09:30 | RAD REPORT ---
EXAM DESCRIPTION: RAD - Chest Single View - 02/06/2022 9:22 am CLINICAL HISTORY: DYSPNEA Chest pain. COMPARISON: Chest Single View dated 09/05/2021; Chest Single View dated 07/20/2021; Chest Single View dated 07/27/2020; Chest Single View dated 08/28/2018 FINDINGS: Portable technique limits examination quality. Moderately severe bilateral pulmonary opacities are seen with bilateral pleural effusions. The heart is enlarged in size. Hiatal hernia.Findings are favored to represent bilateral pneumonia.
[2022-02-06 09:36] LABS: Potassium 3.6 mmol/L (3.5-5.1); Troponin High Sensitivity 27.3 pg/mL (<58.9)
[2022-02-06] MEDS ORDERED: CEFTRIAXONE 1000 MG/VIAL ONE (09:55)
[2022-02-06] MEDS ORDERED: AZITHROMYCIN 500 MG INJ IVPB ONE (09:55)
[2022-02-06] MEDS ORDERED: NA CHLORIDE 0.9% 250 ML ONE (09:56)
[2022-02-06 10:11] LABS: SARS-COV-2 RT PCR NEGATIVE (NEGATIVE)
--- NOTE | 2022-02-06 10:19 | ER ---
Nurse's Notes [facility] Name: Francy Griffiths Age: 86 yrs Sex: Female : 1935 Arrival Date: 02/06/2022 Time: 08:40 Bed 4 Private MD: Diagnosis: Pneumonia, unspecified organism-bilateral Presentation: 02/06 08:40 Chief complaint: EMS states: Toned out by [facility] for low O2, facility reported jl7 pulse ox of 42% on room air, pt was 79% on 4 lpm nasal cannula on arrival, albuterol x 1 and 125 mg Solu-Medrol given in route. Pt is A\T\Ox2 to self and place as baseline, pt was not verbally responding in route. 08:40 Method Of Arrival: EMS: [facility] jl7 08:40 Coronavirus screen: difficulty breathing, Client presents with at least one sign or jl7 symptom that may indicate coronavirus-19. Standard/surgical mask placed on the client. Provider contacted for isolation considerations. Ebola Screen: No symptoms or risks identified at this time. Initial Sepsis Screen: Does the patient meet any 2 criteria? No. Patient's initial sepsis screen is negative. Does the patient have a suspected source of infection? No. Patient's initial sepsis screen is negative. Risk Assessment: Do you want to hurt yourself or someone else? Patient reports no desire to harm self or others. Onset of symptoms is unknown. Care prior to arrival: Medication(s) given: Albuterol Neb x 1, 125mg Solu-Medrol IV initiated. 20 GA, in the right antecubital area, Med neb given. Oxygen administered. via a nebulizer mask. Transition of care: patient was received from another setting of care (long-term care facility), [facility]. 08:40 Acuity: DIONTE 2 jl7 Triage Assessment: 08:40 General: Appears in no apparent distress. uncomfortable, Behavior is calm, cooperative, jl7 appropriate for age. Pain: Denies pain. Neuro: Level of Consciousness is awake, obeys commands, Oriented to person, place. Cardiovascular: Patient's skin is warm and dry. Respiratory: Reports shortness of breath Airway is patent Respiratory effort is even, labored, Respiratory pattern is symmetrical, tachypnea Onset: The symptoms/episode began/occurred at an unknown time. the patient has moderate shortness of breath. Derm: Skin is pink, warm \T\ dry. Historical: - Allergies: 08:47 Codeine; jl7 08:47 Demerol; jl7 08:47 Iodine; jl7 08:47 Shellfish Containing Products; jl7 08:47 Sulfa (Sulfonamide Antibiotics); jl7 08:47 Morphine; jl7 - Home Meds: 08:47 furosemide 40 mg Oral tab 1 tab once daily [Active]; aripiprazole 10 mg oral tab 1 tab jl7 once daily [Active]; potassium citrate 10 mEq (1,080 mg) Oral TbER 2 tabs daily [Active]; Pepcid AC 20 mg Oral tab [Active]; lisinopril 20 mg oral tab 1 tab [Active]; amlodipine 10 mg tab 1 tab once daily [Active]; sertraline 100 mg Oral tab 1 tab once daily [Active]; folic acid 1 mg Oral tab 1 tab once daily [Active]; prednisone 2 mg Oral TbEC 1 tab once daily [Active]; Methotrexate (Anti-Rheumatic) 25 mg Oral tab 1 tab daily [Active]; atorvastatin 10 mg Oral tab 1 tab once daily [Active]; levothyroxine 88 mcg cap 1 cap once daily [Active]; melatonin 3 mg Oral tab [Active]; - PMHx: 08:47 DNR; Depressive disorder; insomnia; Gastroesophageal reflux disease; Rheumatoid jl7 arthritis; bradycardia; Dementia; Hereditary factor VIII Deficiency; TIA; Hypothyroidism; Hypertensive disorder; - Immunization history:: Adult Immunizations unknown. - Social history:: Smoking status: unknown. Screenin:56 Abuse screen: Denies threats or abuse. Denies injuries from another. Nutritional jl7 screening: No deficits noted. Tuberculosis screening: No symptoms or risk factors identified. Fall Risk IV access (20 points). Assessment: 10:15 Reassessment: Patient states symptoms have improved. wheezing diminished, SpO2 jg9 maintaining on 2 Lpm, NAD, breathing easy/unlabored-productive cough noted-white/yellow tinged sputum. . Cardiovascular: Rhythm is sinus rhythm. Respiratory: Airway is patent Trachea midline Respiratory effort is even, unlabored, Respiratory pattern is regular, symmetrical, Breath sounds are diminished bilaterally. Breath sounds with wheezes diminished breath sounds bilaterally/ mild amount wheezing noted at end expiration-wheezing improved from initial assessment. Vital Signs: 08:30 BP 140 / 47; Pulse 67; Resp 30; Pulse Ox 94% on R/A; jg9 08:40 BP 140 / 47; Pulse 67; Resp 27; Temp 98.5; Pulse Ox 91% on R/A; Weight 45.36 kg; jl7 08:50 Pulse Ox 89% on R/A; jl7 08:59 BP 119 / 44; Pulse 61; Resp 28; Pulse Ox 100% on Nebulizer Mask; jl7 09:00 BP 123 / 56; Pulse 64; Resp 30 S; Pulse Ox 100% on Nebulizer Mask; jg9 09:45 BP 102 / 39; Pulse 75; Resp 27; Pulse Ox 95% on 2 lpm NC; jg9 10:30 BP 104 / 46; Pulse 75; Resp 24 S; Pulse Ox 95% on 2 lpm NC; jg9 11:15 BP 104 / 53; Pulse 69; Resp 24; Pulse Ox 92% on 2 lpm NC; jg9 12:00 BP 101 / 50; Pulse 54; Resp 22 S; Pulse Ox 98% on 2 lpm NC; jg9 12:45 BP 106 / 48; Pulse 57; Resp 27 S; Pulse Ox 92% on 2 lpm NC; jg9 13:30 BP 110 / 50; Pulse 54; Resp 23 S; Pulse Ox 92% on 2 lpm NC; jg9 ED Course: 08:40 Patient arrived in ED. jl7 08:40 EKG done, by ED staff, reviewed by Marcial Flores MD. jl7 08:41 Ara Bradley FNP-C is PHCP. kb 08:41 Marcial Flores MD is Attending Physician. kb 08:47 Triage completed. jl7 08:47 Arm band placed on right wrist. jl7 08:48 Doreen Chi, CÉSAR is Primary Nurse. jg9 08:56 Patient has correct armband on for positive identification. Bed in low position. Call jl7 light in reach. Side rails up X2. monitoring coordinator on. Pulse ox on. NIBP on. Warm blanket given. 09:20 X-ray completed. Portable x-ray completed in exam room. Patient tolerated procedure mh1 well. 09:23 XRAY Chest (1 view) In Process Unspecified. EDMS 10:18 Fritz Stein is Hospitalizing Provider. kb 10:22 Straight cath inserted, using sterile technique, unable to obtain specimen after 2 jg9 attempts Patient placed on bed de-unable to obtain sample-will try later. 13:[address] jg9 13:52 No apparent distress. Appears to be sleeping. Awaiting bed assignment. jg9 14:39 No provider procedures requiring assistance completed. jg9 14:39 Patient admitted, IV remains in place. jg9 Administered Medications: 08:59 Drug: Albuterol 2.5 mg Route: Inhalation; jl7 09:47 Follow up: Response: Wheezing diminished jg9 08:59 Drug: AtroVENT (ipratropium) Aerosol 0.5 mg Route: Inhalation; jl7 09:47 Follow up: Response: No adverse reaction; Wheezing diminished jg9 10:10 Drug: Rocephin (cefTRIAXone) 1 grams Route: IV; Rate: calculated rate; Site: right [facility] antecubital; 11:16 Follow up: Response: No adverse reaction; IV Status: Completed infusion; IV Intake: [id number] 10:13 Drug: Zithromax (azithromycin) 500 mg Route: IVPB; Infused Over: 1 hrs; Site: right 9 antecubital; 11:16 Follow up: IV Status: Completed infusion; IV Intake: 250ml jg9 Intake: 11:16 IV: 10ml; Total: 10ml. jg9 11:16 IV: 250ml; Total: 260ml. jg9 Outcome: 10:18 Decision to Hospitalize by Provider. kb 14:39 Admitted to ER Hold. Please see [facility] for further documentation. jg9 14:39 Condition: stable 18:36 Patient left the ED. jg9 Signatures: Dispatcher [employer] EDMS Ara Bradley, EMILIANOC SENIOR SALES ASSOCIATE-Carrie Sprague [facility] Lo Mccarthy RN RN jl7 Doreen Chi RN RN jg9
--- NOTE | 2022-02-06 10:19 | EDPHYS ---
Physician Documentation [facility] Name: Francy Griffiths Age: 86 yrs Sex: Female : 1935 Arrival Date: 02/06/2022 Time: 08:40 Bed 4 Private MD: ED Physician Marcial Flores HPI: 02/06 08:47 This 86 yrs old Female presents to ER via EMS with complaints of Breathing kb Difficulty. 08:47 The patient has shortness of breath at rest. Onset: The symptoms/episode began/occurred kb this morning. Duration: The symptoms are continuous. The patient's shortness of breath is aggravated by nothing, is alleviated by nebulizer treatment, application of supplemental oxygen. Associated signs and symptoms: The patient has no apparent associated signs or symptoms. Severity of symptoms: At their worst the symptoms were moderate in the emergency department the symptoms are unchanged. The patient has not experienced similar symptoms in the past. The patient has not recently seen a physician. EMS reports they were called by shelter staff for oxygen sat in the 30s and AMS. States pt's O2 sat was 79% on room air upon their arrival. 1 albuterol, 125mg solumedrol and O2 via nonrebreather given in route. Pt's oxygen was up to 99% after interventions. . Historical: - Allergies: 08:47 Codeine; jl7 08:47 Demerol; jl7 08:47 Iodine; jl7 08:47 Shellfish Containing Products; jl7 08:47 Sulfa (Sulfonamide Antibiotics); jl7 08:47 Morphine; jl7 - Home Meds: 08:47 furosemide 40 mg Oral tab 1 tab once daily [Active]; aripiprazole 10 mg oral tab 1 tab jl7 once daily [Active]; potassium citrate 10 mEq (1,080 mg) Oral TbER 2 tabs daily [Active]; Pepcid AC 20 mg Oral tab [Active]; lisinopril 20 mg oral tab 1 tab [Active]; amlodipine 10 mg tab 1 tab once daily [Active]; sertraline 100 mg Oral tab 1 tab once daily [Active]; folic acid 1 mg Oral tab 1 tab once daily [Active]; prednisone 2 mg Oral TbEC 1 tab once daily [Active]; Methotrexate (Anti-Rheumatic) 25 mg Oral tab 1 tab daily [Active]; atorvastatin 10 mg Oral tab 1 tab once daily [Active]; levothyroxine 88 mcg cap 1 cap once daily [Active]; melatonin 3 mg Oral tab [Active]; - PMHx: 08:47 DNR; Depressive disorder; insomnia; Gastroesophageal reflux disease; Rheumatoid jl7 arthritis; bradycardia; Dementia; Hereditary factor VIII Deficiency; TIA; Hypothyroidism; Hypertensive disorder; - Immunization history:: Adult Immunizations unknown. - Social history:: Smoking status: unknown. ROS: 08:46 Constitutional: Negative for fever, chills, and weight loss. kb 08:46 Respiratory: Positive for shortness of breath. 08:46 All other systems are negative. Exam: 08:47 Constitutional: This is a well developed, well nourished patient who is awake, alert, kb and in no acute distress. Head/Face: Normocephalic, atraumatic. ENT: Moist Mucous membranes Cardiovascular: Regular rate and rhythm with a normal S1 and S2. No gallops, murmurs, or rubs. No pulse deficits. Skin: Warm, dry with normal turgor. Normal color. MS/ Extremity: Pulses equal, no cyanosis. Neurovascular intact. Full, normal range of motion. 08:47 Respiratory: the patient does not display signs of respiratory distress, Respirations: normal, Breath sounds: wheezing: expiratory that is moderate, is scattered. 08:47 Neuro: Orientation: to person, place, situation, Mentation: able to follow commands. Vital Signs: 08:30 BP 140 / 47; Pulse 67; Resp 30; Pulse Ox 94% on R/A; jg9 08:40 BP 140 / 47; Pulse 67; Resp 27; Temp 98.5; Pulse Ox 91% on R/A; Weight 45.36 kg; jl7 08:50 Pulse Ox 89% on R/A; jl7 08:59 BP 119 / 44; Pulse 61; Resp 28; Pulse Ox 100% on Nebulizer Mask; jl7 09:00 BP 123 / 56; Pulse 64; Resp 30 S; Pulse Ox 100% on Nebulizer Mask; jg9 09:45 BP 102 / 39; Pulse 75; Resp 27; Pulse Ox 95% on 2 lpm NC; jg9 10:30 BP 104 / 46; Pulse 75; Resp 24 S; Pulse Ox 95% on 2 lpm NC; jg9 11:15 BP 104 / 53; Pulse 69; Resp 24; Pulse Ox 92% on 2 lpm NC; jg9 12:00 BP 101 / 50; Pulse 54; Resp 22 S; Pulse Ox 98% on 2 lpm NC; jg9 12:45 BP 106 / 48; Pulse 57; Resp 27 S; Pulse Ox 92% on 2 lpm NC; jg9 13:30 BP 110 / 50; Pulse 54; Resp 23 S; Pulse Ox 92% on 2 lpm NC; jg9 MDM: 08:41 Patient medically screened. kb 08:45 Data reviewed: vital signs, nurses notes. Data interpreted: Pulse oximetry: on room air kb is 93 %. Interpretation: normal. ED course: O2 sat on room air 92-96% on room air. 10:16 Counseling: I had a detailed discussion with the patient and/or guardian regarding: the kb historical points, exam findings, and any diagnostic results supporting the discharge/admit diagnosis, lab results, radiology results, the need for further work-up and treatment in the hospital. Physician consultation: Fritz Stein was called at 10:18, regarding admission, to the telemetry unit. patient's condition, and will see patient in ED. 02/06 08:43 Order name: Basic Metabolic Panel; Complete Time: 09:37 kb 02/06 08:43 Order name: CBC with Diff; Complete Time: 10:45 kb 02/06 08:43 Order name: NT PRO-BNP; Complete Time: 09:37 kb 02/06 08:43 Order name: Troponin HS; Complete Time: 09:37 kb 02/06 08:43 Order name: Blood Culture Adult (2) kb 02/06 08:43 Order name: Lactate; Complete Time: 09:32 kb 02/06 08:43 Order name: XRAY Chest (1 view); Complete Time: 09:32 kb 02/06 08:43 Order name: Procalcitonin; Complete Time: 11:29 kb 02/06 08:43 Order name: COVID-19/FLU A+B (Document "Date of Onset" if Symptomatic); Complete Time: kb 10:13 02/06 09:09 Order name: Urine Microscopic Only kb 02/06 09:21 Order name: CBC Smear Scan; Complete Time: 10:45 EDMS 02/06 18:23 Order name: Urine Dipstick-Ancillary; Complete Time: 18:30 EDMS 02/06 08:43 Order name: EKG; Complete Time: 08:44 kb 02/06 08:43 Order name: Cardiac monitoring; Complete Time: 08:49 kb 02/06 08:43 Order name: EKG - Nurse/Tech; Complete Time: 08:49 kb 02/06 08:43 Order name: IV Saline Lock; Complete Time: 08:49 kb 02/06 08:43 Order name: Labs collected and sent; Complete Time: 08:49 kb 02/06 08:43 Order name: O2 Per Protocol; Complete Time: 08:59 kb 02/06 08:43 Order name: O2 Sat Monitoring; Complete Time: 08:49 kb Administered Medications: 08:59 Drug: Albuterol 2.5 mg Route: Inhalation; jl7 09:47 Follow up: Response: Wheezing diminished jg9 08:59 Drug: AtroVENT (ipratropium) Aerosol 0.5 mg Route: Inhalation; jl7 09:47 Follow up: Response: No adverse reaction; Wheezing diminished jg9 10:10 Drug: Rocephin (cefTRIAXone) 1 grams Route: IV; Rate: calculated rate; Site: right 9 antecubital; 11:16 Follow up: Response: No adverse reaction; IV Status: Completed infusion; IV Intake: 22bumb3 10:13 Drug: Zithromax (azithromycin) 500 mg Route: IVPB; Infused Over: 1 hrs; Site: right jg9 antecubital; 11:16 Follow up: IV Status: Completed infusion; IV Intake: 250ml jg9 Disposition Summary: 02/06/22 10:18 Hospitalization Ordered Hospitalization Status: Inpatient Admission kb Provider: Fritz Stein Condition: Stable kb Problem: new kb Symptoms: are unchanged kb Bed/Room Type: Standard kb Location: Telemetry/MedSurg (Inpatient)(02/06/22 17:30) dw Room Assignment: 207(02/06/22 17:30) dw Diagnosis - Pneumonia, unspecified organism - bilateral kb Forms: - Medication Reconciliation Form kb - SBAR form kb Addendum: 02/12/2022 18:50 Co-signature as Attending Physician, Marcial Flores MD I agree with the assessment and c ash plan of care. Signatures: Dispatcher [employer] EDAra Barajas FNP-C EMBOSSING MACHINE OPERATOR-Ckb Desiree Castelan, RN RN dw Marcial Flores MD MD cha Smirch, Shelby RN RN ss Lo Mccarthy RN RN jl7 Doreen Chi RN RN jg9 Corrections: (The following items were deleted from the chart) 02/06 14:24 10:18 Telemetry/MedSurg (Inpatient) kb ss 14:24 10:18 kb ss 17:30 14:24 [facility] ER HOLD ss dw 17:30 14:24 ERHOLD- ss dw
[2022-02-06 10:41] LABS: Anisocytosis 1+; Blood Morphology Comment NOTED (NOT SEEN); Platelet Estimate INCR; White Blood Cell Scan OK (OK)
[2022-02-06 10:42] LABS: Polychromasia SLIGHT
--- NOTE | 2022-02-06 11:36 | P.HP ---
Certification for Inpatient Patient admitted to: Inpatient With expected LOS: >2 Midnights Practitioner: I am a practitioner with admitting privileges, knowledge of patient current condition, hospital course, and medical plan of care. Services: Services provided to patient in accordance with Admission requirements found in Title 42 Section 412.3 of the Code of Federal Regulations Patient History Date of Service: 02/06/22 Reason for admission: Hypoxia History of Present Illness: 86-year-old woman with a history of hypertension and rheumatoid arthritis, senior living resident was transferred from senior living to the emergency department due to hypoxia. Patient noted to be hypoxic with oxygen saturation in the 30s as reported by the senior living staff. EMS found her with oxygen saturation in the 80s. She was placed on oxygen therapy and brought to the emergency department. Patient was complaining of shortness of breath and cough. Cough is nonproductive. Chest x-ray done in the emergency department demonstrate bilateral pneumonia. Patient was saturating at 92 to 94% on 2 L oxygen by nasal cannula. She is awake and communicate meaningfully. She has mild leukocytosis. Patient given antibiotics. Pneumonia protocol and admitted for further management. Allergies Iodine and Iodide Containing Produc Allergy (Verified 07/24/20 21:16) Itching/Hives/Rash morphine Allergy (Verified 07/26/20 10:14) Shortness of breath Sulfa (Sulfonamide Antibiotics) Allergy (Verified 07/24/20 21:16) Itching/Hives/Rash Home Medications: Docosahexanoic AC/Epa [Fish Oil 1,000 MG*] 1,000 mg PO DAILY 07/25/20 Folic Acid 1 mg PO DAILY 07/25/20 Furosemide [Lasix*] 40 mg PO DAILY 07/25/20 Levothyroxine [Synthroid*] 88 mcg PO [id number] 07/25/20 Methotrexate Sodium [Methotrexate] 25 mg PO EVERY 7TH DAY 07/25/20 Potassium Citrate [Potassium Citrate ER] 20 meq PO DAILY 07/25/20 Pravastatin Sodium [Pravachol] 20 mg PO DAILY 07/25/20 lisinopriL [Prinivil*] 40 mg PO DAILY 07/25/20 predniSONE [Prednisone*] 2 mg PO DAILY 07/25/20 Docusate/Senna [Senokot-S*] 1 tab PO BID 30 Days #60 tab 07/31/20 traMADol HCL [Ultram*] 1 tab PO Q6H PRN 4 Days #20 tab 07/31/20 - Past Medical/Surgical History Diabetic: No -: Hypertension -: Rheumatoid arthritis -: Falls -: Hyperlipidemia -: L Knee pain -: Osteoarthritis -: Bowel resection -: Hysterectomy -: Spinal surgery - Family History Mother -: Hypertension Father -: Hypertension Sister -: Cancer Notes: two sisters - Social History Alcohol use: No CD- Drugs: No Caffeine use: Yes Review of Systems Other: Patient denied any nausea vomiting or abdominal pain or diarrhea. Except as documented, all other systems reviewed and negative. Physical Examination - Physical Exam General: Alert, In no apparent distress, Oriented x2 HEENT: Atraumatic, Normocephalic, Mucous membr. moist/pink, EOMI, Sclerae nonicteric Neck: Supple, JVD not distended Respiratory: Normal air movement, Crackles/rales (Bilateral) Cardiovascular: No edema, Regular rate/rhythm, Normal S1 S2, Systolic murmur Capillary refill: <2 Seconds Gastrointestinal: Soft and benign, Non-distended, No tenderness Musculoskeletal: No swelling, No tenderness Integumentary: No rashes, No erythema, No cyanosis Neurological: Normal strength at 5/5 x4 extr, Cranial nerves 3-12 intact Lymphatics: No axilla or inguinal lymphadenopathy - Studies Laboratory Data (last 24 hrs) 02/06/22 08:45: WBC 13.0 H, Hgb 9.2 L, Hct 29.8 L, Plt Count 504 H 02/06/22 08:45: Sodium 138, Potassium 3.6, BUN 18, Creatinine 0.63, Glucose 86 Assessment and Plan - Problems (Diagnosis) (1) Bilateral pneumonia Current Visit: Yes Status: Acute (2) Acute respiratory failure with hypoxia Current Visit: Yes Status: Acute (3) HTN (hypertension) Onset Date: 12/30/17 Current Visit: No Status: Acute Qualifiers: Hypertension type: essential hypertension Qualified Code(s): I10 - Essential (primary) hypertension (4) Rheumatoid arthritis Current Visit: No Status: Acute - Plan Admit to the medical floor. Patient with extensive bilateral pneumonia. There is concern for aspiration pneumonia. Patient started on Levaquin and Zosyn. Speech therapy consult for swallow evaluation. Keep n.p.o. until swallow evaluation Titrate oxygen Supportive measures with bronchodilators. Chest physiotherapy-Mucinex. Validate and reconcile other home medications. - Advance Directives Does patient have a Living Will: Yes Does patient have a Durable POA for Healthcare: Yes
[2022-02-06 15:27] VITALS: BMI 28.5
[2022-02-06] MEDS: Levofloxacin 750mg IV 750 MG/150 ML BAG IV SCH (16:00)
[2022-02-06] MEDS ORDERED: ONDANSETRON 4 MG/2 ML VIAL IV PRN (16:06)
[2022-02-06] MEDS ORDERED: ALBUTEROL 2.5 MG/3 ML NEB SOL NEB PRN (16:06)
[2022-02-06] MEDS: IPRATROPIUM BROM 0.5MG/2.5ML NEB SCH ×3 (16:06→23:30)
[2022-02-06] MEDS ORDERED: NA CHLORIDE 0.9% 1,000 ML IV SCH (16:06)
[2022-02-06] MEDS ORDERED: ENOXAPARIN 40 MG/0.4 ML SQ ONE (16:41)
[2022-02-06] MEDS ORDERED: NA CHLORIDE 0.9% 100 ML IV ONE (16:41)
[2022-02-06] MEDS ORDERED: NA CHLORIDE 0.9% 1,000 ML ONE (16:41)
[2022-02-06] MEDS ORDERED: Levofloxacin 750mg IV 750 MG/150 ML BAG IV ONE (16:41)
[2022-02-06] MEDS ORDERED: PIPERACIL/TAZO 3.375 GM VIAL IV ONE (16:41)
[2022-02-06] MEDS: ENOXAPARIN 40 MG/0.4 ML SQ SCH (16:56)
[2022-02-06] MEDS: PIPER TAZO 3.375 GM in NA CHLORIDE 0.9% 100 ML IV SCH (18:00)
[2022-02-06 18:22] LABS: Urine Blood Negative (Negative); Urine Glucose Negative (Negative); Urine Protein 1+ (Negative); Urine Specific Gravity >=1.030 (1.005-1.030); Urine pH 6.5 (5.0-7.0)
[2022-02-06] MEDS: D5NS KCL 20MEQ 20 MEQ/1,000 ML BAG IV SCH (19:45)
[2022-02-07] MEDS: PIPER TAZO 3.375 GM in NA CHLORIDE 0.9% 100 ML IV SCH ×3 (00:36→17:39)
[2022-02-07] MEDS: IPRATROPIUM BROM 0.5MG/2.5ML NEB SCH ×6 (04:00→23:21)
[2022-02-07 04:01] LABS: Absolute Lymphocytes (CBC) 0.9 K/uL (0.7-4.9); Hematocrit 23.8 % (36.0-45.0); MPV 6.2 fL (7.6-11.3); RBC Red Blood Cell Count 2.75 M/uL (3.86-4.86)
[2022-02-07 04:33] LABS: BUN Blood Urea Nitrogen 18 mg/dL (7-18); Bicarbonate 25 mmol/L (21-32); Glucose Level 130 mg/dL (74-106); Magnesium 1.9 mg/dL (1.8-2.4); Phosphorus 3.1 mg/dL (2.5-4.9); Potassium 3.5 mmol/L (3.5-5.1); Sodium Level 140 mmol/L (136-145)
[2022-02-07] MEDS ORDERED: HALOPERIDOL LACT 5 MG/ML INJ IV ONE (06:30)
[2022-02-07] MEDS: ENOXAPARIN 40 MG/0.4 ML SQ SCH (09:00)
[2022-02-07] MEDS ORDERED: KCL 20 MEQ/100 mL IVPB 20 MEQ/100 ML BAG IV SCH (09:00)
[2022-02-07] MEDS ORDERED: HALOPERIDOL LACT 5 MG/ML INJ IV PRN (10:19)
--- NOTE | 2022-02-07 12:26 | P.PN ---
Subjective Date of Service: 02/07/22 Chief Complaint: Hypoxia Patient ss agitated and confused today. She was given a couple of doses of IV Haldol She has been tolerating room air. No fever Physical Examination - Vital Signs Temperature: 97.1 F Blood Pressure: 119/59 Pulse: 47 Respirations: 16 Pulse Ox (%): 94 - Studies Microbiology Data (last 24 hrs): 02/06/22 09:00 Blood - Blood Anaerobic Blood Culture - Final Assessment And Plan - Current Problems (Diagnosis) (1) Bilateral pneumonia Current Visit: Yes Status: Acute (2) Acute respiratory failure with hypoxia Current Visit: Yes Status: Acute (3) HTN (hypertension) Onset Date: 12/30/17 Current Visit: No Status: Acute Qualifiers: Hypertension type: essential hypertension Qualified Code(s): I10 - Essential (primary) hypertension (4) Rheumatoid arthritis Current Visit: No Status: Acute (5) Dementia with behavioral disturbance Current Visit: Yes Status: Acute - Plan Physical Exam General: Confused in no apparent distress. HEENT: Mucous membr. moist/pink, Sclerae nonicteric Neck: Supple, JVD not distended Respiratory: Normal air movement, Crackles/rales (Bilateral) Cardiovascular: No edema, Regular rate/rhythm, Normal S1 S2, Systolic murmur Capillary refill: <2 Seconds Gastrointestinal: Soft and benign, Non-distended, No tenderness Musculoskeletal: No swelling, No tenderness Integumentary: No rashes, No erythema, No cyanosis Neurological: Normal strength at 5/5 x4 extr, Cranial nerves 3-12 intact Patient with extensive bilateral pneumonia. There is concern for aspiration pneumonia. Continue Levaquin and Zosyn. Awaiting swallow evaluation by speech therapy. D5 IV fluid Keep n.p.o. until swallow evaluation Titrate oxygen Supportive measures with bronchodilators. Chest physiotherapy-Mucinex. Haldol as needed. Seroquel once feeding oral medication started. Haldol IV as needed for agitation.
[2022-02-07] MEDS ORDERED: QUETIAPINE 25 MG TAB PO ONE (13:38)
[2022-02-07] MEDS: HALOPERIDOL LACT 5 MG/ML INJ IV PRN ×2 (18:52→23:46)
[2022-02-07] MEDS: ARIPiprazole 5 MG TAB PO SCH (19:56)
[2022-02-07] MEDS: D5NS KCL 20MEQ 20 MEQ/1,000 ML BAG IV SCH (21:40)
[2022-02-07] MEDS ORDERED: FUROSEMIDE 40 MG/4 ML VIAL IV ONE (23:18)
[2022-02-08] MEDS: PIPER TAZO 3.375 GM in NA CHLORIDE 0.9% 100 ML IV SCH ×3 (00:06→18:36)
[2022-02-08] MEDS: IPRATROPIUM BROM 0.5MG/2.5ML NEB SCH ×6 (03:15→23:15)
[2022-02-08 06:14] LABS: Absolute Lymphocytes (CBC) 0.6 K/uL (0.7-4.9); Hematocrit 22.1 % (36.0-45.0); Lymphocytes % 4.4 % (15.3-44.8); MPV 6.5 fL (7.6-11.3); RBC Red Blood Cell Count 2.51 M/uL (3.86-4.86)
[2022-02-08] MEDS: KCL 20 MEQ/100 mL IVPB 20 MEQ/100 ML BAG IV SCH ×2 (09:00→11:30)
[2022-02-08] MEDS: ENOXAPARIN 40 MG/0.4 ML SQ SCH (09:02)
--- NOTE | 2022-02-08 12:39 | P.PN ---
Subjective Date of Service: 02/08/22 Chief Complaint: Hypoxia Patient's agitation is improved. Oxygen saturations borderline on 2 L of oxygen by nasal cannula. No fever Physical Examination - Vital Signs Temperature: 97.6 F Blood Pressure: 102/45 Pulse: 55 Respirations: 14 Pulse Ox (%): 95 - Studies Microbiology Data (last 24 hrs): 02/06/22 09:00 Blood - Blood Anaerobic Blood Culture - Final Assessment And Plan - Current Problems (Diagnosis) (1) Bilateral pneumonia Current Visit: Yes Status: Acute (2) Acute respiratory failure with hypoxia Current Visit: Yes Status: Acute (3) HTN (hypertension) Onset Date: 12/30/17 Current Visit: No Status: Acute Qualifiers: Hypertension type: essential hypertension Qualified Code(s): I10 - Essential (primary) hypertension (4) Rheumatoid arthritis Current Visit: No Status: Acute (5) Dementia with behavioral disturbance Current Visit: Yes Status: Acute - Plan Physical Exam General: Confused. NAD. HEENT: Sclerae nonicteric Neck: Supple, JVD not distended Respiratory: Normal air movement, bilateral crackles/rales Cardiovascular: No edema, Regular rate/rhythm, Normal S1 S2, Systolic murmur Capillary refill: <2 Seconds Gastrointestinal: Soft and benign, Non-distended, No tenderness Musculoskeletal: No swelling, No tenderness Integumentary: No rashes, No erythema, No cyanosis Neurological: Normal strength at 5/5 x4 extr, Cranial nerves 3-12 intact Patient with extensive bilateral pneumonia. Continue Levaquin and Zosyn. Awaiting swallow evaluation by speech therapy. D5 IV fluid. Pured diet thickened liquids as we wait for speech therapy evaluation Titrate oxygen Supportive measures with bronchodilators. Chest physiotherapy-Mucinex. Seroquel 25 mg at bedtime Haldol IV as needed for agitation.
[2022-02-08] MEDS ORDERED: FUROSEMIDE 40 MG/4 ML VIAL IV ONE (16:28)
[2022-02-08] MEDS: Levofloxacin 750mg IV 750 MG/150 ML BAG IV SCH (16:49)
[2022-02-08 16:56] LABS: Arterial Blood Carboxyhemoglob 1.2 % (0-1.5); Blood Gas Oxyhemoglobin 86.8 % (94-97); Blood O2 Saturation 88.7 % (92-98.5)
[2022-02-08] MEDS: ARIPiprazole 5 MG TAB PO SCH (21:00)
[2022-02-09] MEDS: PIPER TAZO 3.375 GM in NA CHLORIDE 0.9% 100 ML IV SCH ×2 (00:41→09:00)
[2022-02-09] MEDS: IPRATROPIUM BROM 0.5MG/2.5ML NEB SCH ×5 (03:25→19:55)
[2022-02-09 05:50] LABS: Absolute Lymphocytes (CBC) 0.8 K/uL (0.7-4.9); Hematocrit 23.9 % (36.0-45.0); Lymphocytes % 7.4 % (15.3-44.8); MPV 6.3 fL (7.6-11.3); RBC Red Blood Cell Count 2.73 M/uL (3.86-4.86)
[2022-02-09 06:10] LABS: BUN Blood Urea Nitrogen 12 mg/dL (7-18); Bicarbonate 27 mmol/L (21-32); Glucose Level 93 mg/dL (74-106); Potassium 3.1 mmol/L (3.5-5.1); Sodium Level 142 mmol/L (136-145)
[2022-02-09] MEDS ORDERED: NA CHLORIDE 0.9% 250 ML ONE ×2 (07:28→11:04)
[2022-02-09] MEDS: KCL 20 MEQ/100 mL IVPB 20 MEQ/100 ML BAG IV SCH ×2 (07:32→10:46)
[2022-02-09] MEDS ORDERED: ALBUTEROL 2.5 MG/3 ML NEB SOL NEB ONE (09:22)
--- NOTE | 2022-02-09 09:46 | EKG ---
Test Date: 2022-02-06 Test Time: 08:34:10 Heel Sander: NIKIA MEASUREMENT RESULTS: Intervals: Rate: 69 MD: 156 QRSD: 86 QT: 422 QTc: 452 [place]: P: 44 MD: 156 QRS: 48 T: 66 INTERPRETIVE STATEMENTS: Normal sinus rhythm Nonspecific ST and T wave abnormality Abnormal ECG Compared to ECG 09/05/2021 13:56:37 Sinus bradycardia no longer present ST (T wave) deviation still present Electronically Signed On 02-09-22 09:36:39 CDT by Henri Hicks
[2022-02-09] MEDS ORDERED: VANCOMYCIN 1 GM in NA CHLORIDE 0.9% 250 ML IVPB SCH (10:00)
[2022-02-09] MEDS: Meropenem 1,000 MG in NA CHLORIDE 0.9% 100 ML IV SCH ×2 (10:47→18:23)
[2022-02-09] MEDS: ENOXAPARIN 40 MG/0.4 ML SQ SCH (10:48)
--- NOTE | 2022-02-09 11:19 | RAD REPORT ---
EXAM DESCRIPTION: RAD - Chest Single View - 02/09/2022 10:53 am CLINICAL HISTORY: Follow up Pneumonia, Hypoxia COMPARISON: February 06 TECHNIQUE: AP portable chest image was obtained 02/09/2022 10:53 am . FINDINGS: Right upper lobe pneumonia findings are similar to fractionally worse than the February 06 ashish ging. Differential if present is minimal. Patient has very extensive baseline interstitial fibrotic l tom disease. Bilateral pleural effusion pattern has shown no improvement. Mid and lower left lung fie ld opacification not clearly different from comparison. Trachea is midline. Heart size is grossly normal partially obscured by the lung base pleural and pare nchymal findings. No pneumothorax. No acute bony abnormality seen. No acute aortic findings suspected . IMPRESSION: Similar to fractionally worse right upper lobe pneumonia. Stable moderate-sized bilateral pleural effusions.
--- NOTE | 2022-02-09 12:49 | P.PN ---
Subjective Date of Service: 02/09/22 Chief Complaint: Hypoxia Patient's agitation is improved. Patient respiratory condition got worse yesterday, she became hypoxic and was therefore placed on high flow oxygen and given a dose of Lasix for possible vascular congestion. High flow oxygen is being weaned down to 40% FiO2 20 L/min. Patient is still confused. No fever. Physical Examination - Vital Signs Temperature: 97.0 F Blood Pressure: 124/56 Pulse: 58 Respirations: 16 Pulse Ox (%): 100 Assessment And Plan - Current Problems (Diagnosis) (1) Bilateral pneumonia Current Visit: Yes Status: Acute (2) Acute respiratory failure with hypoxia Current Visit: Yes Status: Acute (3) HTN (hypertension) Onset Date: 12/30/17 Current Visit: No Status: Acute Qualifiers: Hypertension type: essential hypertension Qualified Code(s): I10 - Essential (primary) hypertension (4) Rheumatoid arthritis Current Visit: No Status: Acute (5) Dementia with behavioral disturbance Current Visit: Yes Status: Acute - Plan Physical Exam General: Confused. NAD. HEENT: Sclerae nonicteric. High flow oxygen. Neck: Supple, JVD not distended Respiratory: Normal air movement, bilateral crackles/rales Cardiovascular: No edema, Regular rate/rhythm, Normal S1 S2, Systolic murmur Capillary refill: <2 Seconds Gastrointestinal: Soft and benign, Non-distended, No tenderness Musculoskeletal: No swelling, No tenderness Integumentary: No rashes, No erythema, No cyanosis Neurological: Normal strength at 5/5 x4 extr. Plan Antibiotics changed to IV meropenem and vancomycin given worsening respiratory condition Speech evaluation appreciated. Patient placed on pured diet and thin liquids. IV fluid discontinued. Intermittent IV Lasix for pulmonary vascular congestion. Serial chest x-ray Wean oxygen as tolerated Continue bronchodilators. Chest physiotherapy-Mucinex. Seroquel 25 mg at bedtime Haldol IV as needed for agitation.
[2022-02-09] MEDS: ARIPiprazole 5 MG TAB PO SCH (22:33)
[2022-02-10] MEDS: IPRATROPIUM BROM 0.5MG/2.5ML NEB SCH ×6 (00:05→19:40)
[2022-02-10] MEDS: Meropenem 1,000 MG in NA CHLORIDE 0.9% 100 ML IV SCH (00:32)
[2022-02-10 06:13] LABS: Absolute Lymphocytes (CBC) 1.1 K/uL (0.7-4.9); MPV 6.4 fL (7.6-11.3); RBC Red Blood Cell Count 2.91 M/uL (3.86-4.86)
[2022-02-10 06:23] LABS: Bicarbonate 26 mmol/L (21-32); Glucose Level 99 mg/dL (74-106); Potassium 3.1 mmol/L (3.5-5.1); Sodium Level 141 mmol/L (136-145)
[2022-02-10 06:24] LABS: BUN Blood Urea Nitrogen 10 mg/dL (7-18)
[2022-02-10] MEDS: KCL 20 MEQ/100 mL IVPB 20 MEQ/100 ML BAG IV SCH ×2 (06:39→10:58)
--- NOTE | 2022-02-10 06:46 | P.PN ---
Date of Service: 02/10/22 Subjective: feeling better, able to talk more without dyspnea feels breathing is improving no other big complaints/concerns per patient - continues with generalized weakness family updated at bedside ROS: 10 point ROS as noted above, otherwise negative Physical exam GEN: Alert, orientedx2, NAD HEENT: Normal conjunctiva, sclera anicteric CV: Regular rate and rhythm, no edema, systolic murmur Pulm: nonlabored on HFNC, b/l crackles throughout ABD: Soft, nontender, nondistended Integumentary: No rashes Neuro: Normal speech, normal affect Problem List Acute hypoxemic respiratory failure secondary to Bilateral pneumonia Hypertension Rheumatoid arthritis Dementia behavioral disturbance Anemia chronic disease Patient feeling better, oxygenation slightly improved Still requiring high flow nasal cannula Pulmonology consulted Antibiotics changed to IV meropenem and vancomycin on 02/09 due to worsening respiratory condition Chest x-ray with minimal change Possible inflammatory/noninfectious component Pulmonology recommends steroids Speech therapy to reevaluate today, possibly advance diet Repeat chest x-ray Chronic anemia, stable, no signs of bleeding VTE: lovenox Code: full Dispo: back to SNF, 2-3 days wean O2 Time Spent Managing Pts Care (In Minutes): 35
[2022-02-10] MEDS ORDERED: IPRATROPIUM BROM 0.5MG/2.5ML ONE (07:55)
--- NOTE | 2022-02-10 08:28 | P.CNS ---
Date of Consult: 02/17/22 Reason for Consult: Respiratory distress Chief Complaint: Hypoxia History of Present Illness: Patient is 86 years of age with severe rheumatoid arthritis hypertension assisted resident admitted with hypoxemia still is hypoxic wheezing short of breath significant change since admission stable history of pneumonia and respiratory distress Abnormal chest x-ray bilateral pulmonary infiltrates right greater than the left Allergies Iodine and Iodide Containing Produc Allergy (Verified 07/24/20 21:16) Itching/Hives/Rash morphine Allergy (Verified 07/26/20 10:14) Shortness of breath Sulfa (Sulfonamide Antibiotics) Allergy (Verified 07/24/20 21:16) Itching/Hives/Rash Home Medications: Docosahexanoic AC/Epa [Fish Oil 1,000 MG*] 1,000 mg PO DAILY 07/25/20 Folic Acid 1 mg PO DAILY 07/25/20 Furosemide [Lasix*] 40 mg PO DAILY 07/25/20 Levothyroxine [Synthroid*] 88 mcg PO [id number] 07/25/20 Methotrexate Sodium [Methotrexate] 25 mg PO EVERY 7TH DAY 07/25/20 Potassium Citrate [Potassium Citrate ER] 10 meq PO DAILY 07/25/20 Pravastatin Sodium [Pravachol] 20 mg PO DAILY 07/25/20 lisinopriL [Prinivil*] 20 mg PO BID 07/25/20 predniSONE [Prednisone*] 2 mg PO DAILY 07/25/20 traMADol HCL [Ultram*] 1 tab PO Q6H PRN 4 Days #20 tab 07/31/20 ARIPiprazole [Aripiprazole] 1 tab PO BEDTIME 02/06/22 Acetaminophen 2 tab PO PRN 02/06/22 Amlodipine Besylate 1 tab 02/06/22 Atorvastatin Calcium 5 mg PO DAILY 02/06/22 Carboxymethylcellulose Sodium [Lubricating Plus] 1 drop EACH EYE BID 02/06/22 Docusate/Senna [Senokot-S*] 2 tab PO BEDTIME 02/06/22 Donepezil HCl [Aricept] 02/06/22 Famotidine [Pepcid] 20 mg PO BEDTIME 02/06/22 Melatonin [Melatin] 1 tab PO BEDTIME 02/06/22 Polyethylene Glycol 3350 [Miralax] 1 packet PO DAILY 02/06/22 Sertraline HCl 1 tab PO DAILY 02/06/22 - Past Medical/Surgical History Diabetic: No -: Hypertension -: Rheumatoid arthritis -: Falls -: Hyperlipidemia -: L Knee pain -: Osteoarthritis -: Bowel resection -: Hysterectomy -: Spinal surgery - Family History Mother Medical History: Hypertension Father Medical History: Hypertension Sister Medical History: Cancer Notes: two sisters - Social History Smoking Status: Unknown if ever smoked Alcohol use: No CD- Drugs: No Caffeine use: Yes [facility] Review of Systems is unable to be obtained Physical Examination Temp Pulse Resp BP Pulse Ox 98.1 F 67 20 131/55 L 94 02/10/22 04:00 02/10/22 04:00 02/10/22 04:00 02/10/22 04:00 02/10/22 04:00 General: Alert, Mild distress Respiratory: Clear to auscultation bilaterally, Crackles/rales, Inspiratory wheezes, Rhonchi/gurgles Cardiovascular: No edema, Regular rate/rhythm Gastrointestinal: Normal bowel sounds, Soft and benign, Non-distended Musculoskeletal: Other (Severe hand deformities) Integumentary: No rashes, No breakdown - Problems (1) Bilateral pneumonia Current Visit: Yes Status: Acute Plan: Patient is 86 years of age assisted resident severe rheumatoid arthritis admitted with respiratory distress with bilateral pulmonary infiltrates right greater than the left infiltrates have worsened since admission white count mildly elevated cultures are so far negative patient is currently on high flow 40% FiO2 recommend starting patient on steroids changed to p.o. antibiotic vital signs are stable hypokalemic replace p.o. potassium Qualifiers: Pneumonia type: due to unspecified organism Lung location: unspecified part of lung Qualified Code(s): J18.9 - Pneumonia, unspecified organism
[2022-02-10 08:50] LABS: Anisocytosis 1+; Blood Morphology Comment NOTED (NOT SEEN); Platelet Estimate ADEQ; White Blood Cell Scan OK (OK)
[2022-02-10 08:52] LABS: Polychromasia SLIGHT
[2022-02-10] MEDS: guaiFENesin 100 MG/5 ML UCUP PO PRN ×2 (10:55→21:52)
[2022-02-10] MEDS: POTASSIUM 25 MEQ EFFERV TAB PO SCH ×2 (10:56→21:49)
[2022-02-10] MEDS: METHYLPREDNISOLONE 40 MG INJ IV SCH ×2 (10:56→21:52)
[2022-02-10] MEDS: DOXYCYCLINE 100 MG CAP PO SCH ×2 (10:57→21:52)
[2022-02-10] MEDS: SPIRONOLACTONE 25 MG TABLET PO SCH (10:57)
[2022-02-10] MEDS: levoFLOXacin 750 MG TAB PO SCH (10:57)
[2022-02-10] MEDS: ENOXAPARIN 40 MG/0.4 ML SQ SCH (10:58)
[2022-02-10] MEDS: ACETAMINOPHEN 500 MG TAB PO PRN ×2 (12:55→22:00)
[2022-02-10] MEDS: ALBUTEROL 2.5 MG/3 ML NEB SOL NEB SCH ×2 (14:21→19:40)
[2022-02-10] MEDS: ARIPiprazole 5 MG TAB PO SCH (21:49)
[2022-02-11] MEDS: IPRATROPIUM BROM 0.5MG/2.5ML NEB SCH ×4 (01:35→19:45)
[2022-02-11] MEDS: ALBUTEROL 2.5 MG/3 ML NEB SOL NEB SCH ×4 (01:35→19:45)
[2022-02-11 06:18] LABS: Hematocrit 24.4 % (36.0-45.0); MPV 6.8 fL (7.6-11.3)
[2022-02-11 06:24] LABS: BUN Blood Urea Nitrogen 14 mg/dL (7-18); Bicarbonate 26 mmol/L (21-32); Glucose Level 153 mg/dL (74-106); Magnesium 1.8 mg/dL (1.8-2.4); Potassium 4.2 mmol/L (3.5-5.1); Sodium Level 139 mmol/L (136-145)
[2022-02-11] MEDS ORDERED: MAGNESIUM SULFATE 1 gm IVPB 1 GM/100 ML BAG IV ONE (06:46)
--- NOTE | 2022-02-11 07:50 | RAD REPORT ---
EXAM DESCRIPTION: Jayce Single View02/11/2022 5:41 am CLINICAL HISTORY: Chest pain COMPARISON: February 09, 2022 FINDINGS: Right upper lobe consolidation mildly decreased in size but mildly more dense Overall additional bilateral pulmonary opacities mildly improved. Cardiomegaly. Small to moderate pleural effusions unchanged
[2022-02-11] MEDS: levoFLOXacin 750 MG TAB PO SCH (08:09)
[2022-02-11] MEDS: ENOXAPARIN 40 MG/0.4 ML SQ SCH (08:09)
[2022-02-11] MEDS: METHYLPREDNISOLONE 40 MG INJ IV SCH (08:10)
[2022-02-11] MEDS: DOXYCYCLINE 100 MG CAP PO SCH ×2 (08:10→20:37)
[2022-02-11] MEDS: SPIRONOLACTONE 25 MG TABLET PO SCH (08:10)
[2022-02-11] MEDS: POTASSIUM 25 MEQ EFFERV TAB PO SCH ×2 (08:10→08:53)
--- NOTE | 2022-02-11 08:38 | P.PN ---
Subjective Date of Service: 02/11/22 Chief Complaint: Bilateral pneumonia Subjective: Improving (Patient is improving still congested alert responsive cooperative) Review of Systems General: Weakness Respiratory: Cough, Shortness of Breath Physical Examination - Vital Signs Temperature: 97.2 F Blood Pressure: 135/70 Pulse: 65 Respirations: 19 Pulse Ox (%): 97 - Physical Exam General: Alert, In no apparent distress Respiratory: Expiratory wheezes Cardiovascular: No edema, Regular rate/rhythm Assessment And Plan - Current Problems (Diagnosis) (1) Bilateral pneumonia Current Visit: Yes Status: Acute Plan: Patient admitted with bilateral pneumonia continue with present therapy oxygenation is improved on 2 L she is 100% white count is declining change to p.o. prednisone possible discharge continue with antibiotics and low-dose steroids 10 mg twice a day on discharge for a week hypokalemia resolved to new with spironolactone Qualifiers: Pneumonia type: due to unspecified organism Lung location: unspecified part of lung Qualified Code(s): J18.9 - Pneumonia, unspecified organism
[2022-02-11] MEDS: predniSONE 20 MG TAB PO SCH ×2 (08:54→20:37)
[2022-02-11] MEDS: ACETAMINOPHEN 500 MG TAB PO PRN (14:06)
--- NOTE | 2022-02-11 15:56 | P.PN ---
Date of Service: 02/11/22 Subjective: feeling better O2 weaning down, just down to regular nasal cannula this AM from [place] no new/worsening symptoms appetite improving ROS: 10 point ROS as noted above, otherwise negative Physical exam GEN: Alert, orientedx2, NAD, pleasant HEENT: Normal conjunctiva, sclera anicteric CV: Regular rate and rhythm, no edema, +IV/ systolic murmur Pulm: nonlabored on 3L NC, mild b/l crackles ABD: Soft, nontender, nondistended Neuro: Normal speech, normal affect Problem List Acute hypoxemic respiratory failure secondary to Bilateral pneumonia and pulmonary edema Hypertension Rheumatoid arthritis Dementia behavioral disturbance Anemia chronic disease Patient feeling better, oxygenation improving Pulmonology consulted Antibiotics changed to IV meropenem and vancomycin on 02/09 due to worsening respiratory condition; improved and de-escalated to PO levaquin on 02/10 per pulm Chest x-ray with improvement Suspect inflammatory/noninfectious component steroinds started per pulm on 02/10 Speech therapy is advancing diet Chronic anemia, stable, no signs of bleeding VTE: lovenox Code: full Dispo: back to SNF, 1-2 day, possibly tomorrow pending continued improvement Time Spent Managing Pts Care (In Minutes): 35
[2022-02-11] MEDS: guaiFENesin 100 MG/5 ML UCUP PO PRN (20:37)
[2022-02-11] MEDS: ARIPiprazole 5 MG TAB PO SCH (20:37)
[2022-02-12] MEDS: ALBUTEROL 2.5 MG/3 ML NEB SOL NEB SCH ×4 (01:20→20:00)
[2022-02-12] MEDS: IPRATROPIUM BROM 0.5MG/2.5ML NEB SCH ×4 (01:20→20:00)
[2022-02-12 05:28] LABS: Hematocrit 22.7 % (36.0-45.0); MPV 6.8 fL (7.6-11.3); RBC Red Blood Cell Count 2.63 M/uL (3.86-4.86)
[2022-02-12 05:41] LABS: BUN Blood Urea Nitrogen 18 mg/dL (7-18); Bicarbonate 27 mmol/L (21-32); Glucose Level 131 mg/dL (74-106); Potassium 4.3 mmol/L (3.5-5.1); Sodium Level 141 mmol/L (136-145)
--- NOTE | 2022-02-12 06:23 | P.PN ---
Date of Service: 02/12/22 Subjective: Breathing improved, oxygenation improved Hemoglobin downtrending, blood pressure slightly downtrending as well ROS: 10 point ROS as noted above, otherwise negative Physical exam GEN: Alert, orientedx2, NAD, pleasant HEENT: Normal conjunctiva, sclera anicteric CV: Regular rate and rhythm, no edema, +IV/ systolic murmur Pulm: nonlabored on 2L NC, mild b/l crackles ABD: Soft, nontender, nondistended Neuro: Normal speech, normal affect Problem List Acute hypoxemic respiratory failure secondary to Bilateral pneumonia and pulmonary edema Hypertension Rheumatoid arthritis Dementia behavioral disturbance Anemia chronic disease, iron deficiency Patient feeling better, oxygenation improving Pulmonology consulted Antibiotics changed to IV meropenem and vancomycin on 02/09 due to worsening respiratory condition; improved and de-escalated to PO levaquin on 02/10 per pulm Chest x-ray with improvement steroids started per pulm on 02/10 Speech therapy advance diet Anemia work-up overall, moderate or severe iron deficiency. Start IV iron Patient low blood pressure, receiving diuretic, monitor VTE: lovenox Code: full Dispo: back to SNF, anticipate tomorrow Time Spent Managing Pts Care (In Minutes): 35
[2022-02-12] MEDS: LEVOTHYROXINE SOD 0.088 MG TAB PO SCH (06:40)
[2022-02-12] MEDS: ACETAMINOPHEN 500 MG TAB PO PRN (06:40)
--- NOTE | 2022-02-12 07:49 | RAD REPORT ---
EXAM DESCRIPTION: RAD - Chest Single View - 02/12/2022 5:48 am CLINICAL HISTORY: Pneumonia COMPARISON: February 11, February 09 TECHNIQUE: AP portable chest image was obtained 02/12/2022 5:48 am . FINDINGS: Right upper lobe consolidation has improved. Lateral right base pleural and parenchymal op acities are stable. Left base pleural and parenchymal opacification also stable. Moderately dense mid left lung field opacification is similar or fractionally worse. This can be monitored on follow-up i ashely. Cardiac silhouette is enlarged but has shown reduction since prior examination. Stable pulmonary vas culature noted. No pneumothorax seen. Bilateral pleural effusions are stable. IMPRESSION: Partial clearing of the right upper lobe pneumonia since February 11 imaging. Mid left lung field pneumonia changes appear slightly worse and can be monitored on follow-up imaging . Stable bilateral pleural effusions.
[2022-02-12 07:54] LABS: RBC Red Blood Cell Count 2.73 M/uL (3.86-4.86)
[2022-02-12 08:29] LABS: Ferritin 130.4 ng/mL (8-388)
--- NOTE | 2022-02-12 08:38 | P.PN ---
Subjective Date of Service: 02/12/22 Chief Complaint: Bilateral pneumonia Subjective: Improving (Patient is doing much better feeling better) Review of Systems General: Weakness Respiratory: Shortness of Breath Physical Examination - Vital Signs Temperature: 98.8 F Blood Pressure: 120/44 Pulse: 63 Respirations: 18 Pulse Ox (%): 99 - Physical Exam General: Alert, In no apparent distress, Oriented x3 Respiratory: Expiratory wheezes Cardiovascular: No edema, Regular rate/rhythm - Studies Microbiology Data (last 24 hrs): 02/06/22 09:00 Blood - Blood Aerobic Blood Culture - Final No growth in 5 days. 02/06/22 09:00 Blood - Blood Anaerobic Blood Culture - Final 02/06/22 08:45 Blood - Blood Aerobic Blood Culture - Final No growth in 5 days. 02/06/22 08:45 Blood - Blood Anaerobic Blood Culture - Final No growth in 5 days. Assessment And Plan - Current Problems (Diagnosis) (1) Bilateral pneumonia Current Visit: Yes Status: Acute Plan: Patient's condition has improved significantly vital signs stable chest x-ray still shows bilateral infiltrate continue with present treatment evaluate for possible discharge and physical therapy continue with prednisone 10 mg twice a day for at least a week Qualifiers: Pneumonia type: due to unspecified organism Lung location: unspecified part of lung Qualified Code(s): J18.9 - Pneumonia, unspecified organism
[2022-02-12] MEDS: SERTRALINE HCL 100 MG TAB PO SCH (08:55)
[2022-02-12] MEDS: ENOXAPARIN 40 MG/0.4 ML SQ SCH (08:55)
[2022-02-12] MEDS: POTASSIUM 25 MEQ EFFERV TAB PO SCH (08:56)
[2022-02-12] MEDS: ATORVASTATIN 10 MG TAB PO SCH (08:57)
[2022-02-12] MEDS: DOXYCYCLINE 100 MG CAP PO SCH ×2 (08:57→21:30)
[2022-02-12] MEDS: SPIRONOLACTONE 25 MG TABLET PO SCH (08:57)
[2022-02-12] MEDS: levoFLOXacin 750 MG TAB PO SCH (08:57)
[2022-02-12] MEDS: FOLIC ACID 1 MG TABLET PO SCH (08:57)
[2022-02-12] MEDS: predniSONE 10 MG TAB PO SCH ×2 (09:05→21:30)
[2022-02-12] MEDS ORDERED: SOD FERRIC GLUC COMPLX/SUCROSE 125 MG in NA CHLORIDE 0.9% 100 ML IV SCH (09:30)
[2022-02-12] MEDS: ARIPiprazole 5 MG TAB PO SCH (21:31)
[2022-02-13] MEDS: ACETAMINOPHEN 500 MG TAB PO PRN
[2022-02-13] MEDS: guaiFENesin 100 MG/5 ML UCUP PO PRN ×2 (00:01→09:27)
[2022-02-13] MEDS: IPRATROPIUM BROM 0.5MG/2.5ML NEB SCH ×2 (01:03→07:57)
[2022-02-13] MEDS: ALBUTEROL 2.5 MG/3 ML NEB SOL NEB SCH ×2 (01:03→07:57)
[2022-02-13] MEDS: LEVOTHYROXINE SOD 0.088 MG TAB PO SCH (05:49)
[2022-02-13 05:57] LABS: Hematocrit 24.7 % (36.0-45.0); MPV 6.9 fL (7.6-11.3); RBC Red Blood Cell Count 2.84 M/uL (3.86-4.86)
[2022-02-13] MEDS ORDERED: SOD FERRIC GLUC COMPLX/SUCROSE 125 MG in NA CHLORIDE 0.9% 100 ML IV SCH (06:45)
--- NOTE | 2022-02-13 07:20 | RAD REPORT ---
EXAM DESCRIPTION: RAD - Chest Single View - 02/13/2022 5:23 am CLINICAL HISTORY: Pneumonia COMPARISON: Chest Single View dated 02/12/2022; Chest Single View dated 02/11/2022; Chest Single View dated 02/09/2022; Chest Single View dated 02/06/2022 FINDINGS: Lines: None. Lungs: Patchy ill-defined bilateral airspace disease, predominantly in the right upper lobe and left mid lung that is similar to prior. Pleural: Small bilateral effusions. Cardiac: Cardiomegaly. Bones: No acute fractures. ACDF in the cervical spine. Other: IMPRESSION: Multifocal pneumonia with pleural effusions not significantly changed since 02/12/2022.
--- NOTE | 2022-02-13 08:57 | P.DS ---
Admission Date: 02/06/22 Discharge Date: 02/15/22 Disposition: TRANSFER TO [facility] Discharge Condition: GOOD Reason for Admission: Bilateral pneumonia Consultations: Pulm - Dr. Nazario Procedures: Problem List Acute hypoxemic respiratory failure secondary to Bilateral pneumonia and pulmonary edema Hypertension Rheumatoid arthritis Dementia behavioral disturbance Anemia chronic disease, iron deficiency Brief History of Present Illness: 86yo F, PMH: HTN, RA Presents from residential due to hypoxia with SpO2: 30% as reported by residential staff. Patient was placed on O2 supplementation with mild improvement. CXR in ED concerning for bilateral pneumonia, mild leukocytosis. She was given IV antibiotics and admitted for further evaluation Hospital Course: Patient was empirically treated with IV antibiotics for pneumonia. She had slight worsening of symptoms on 02/08 into 02/09, so antibiotics were broadened out to meropenem and vancomycin. Pulmonology was consulted. Patient also received steroids and diuretics. Patient's home lasix was discontinued given persistent hypokalemia and she was maintained on spironolactone. Patient had significant improvement with above treatment. Pulmonology de- escalated antibiotics on 02/10 to levaquin and doxycycline. Patient continued to improve with oxygen supplementation decreasing each day. Chest x-ray with slow improvement. There was concern for possible aspiration pneumonia. Speech evaluated patient, who never showed overt signs of aspiration. Her diet was advanced slowly, which patient tolerated well. Patient was noted to be anemic on admission. Workup consistent with moderate- severe iron deficiency and of chronic disease. She received 2 doses of 125mg IV iron on 02/12 and 02/13. Hemoglobin remained stable, and improved on day of discharge. She is to continue on PO iron supplementation. Patient with low-normal blood pressure readings, stable. Continue to monitor and balance with fluid status for adjustments of diuretic. Vital Signs/Physical Exam: Temp Pulse Resp BP Pulse Ox 97 F 45 L 18 118/56 L 99 02/13/22 04:00 02/13/22 04:00 02/13/22 04:00 02/13/22 04:00 02/13/22 04:00 General: Alert, In no apparent distress, Oriented x3 HEENT: Sclerae nonicteric Neck: Supple Respiratory: Clear to auscultation bilaterally Cardiovascular: Regular rate/rhythm, Edema (1) Gastrointestinal: Soft and benign, Non-distended, No tenderness Musculoskeletal: No contractures, No tenderness Integumentary: No significant lesion Neurological: Normal speech, Normal affect Laboratory Data at Discharge: WBC 12.5 K/uL (4.3-10.9) H D 02/13/22 05:20 Hgb 7.7 g/dL (12.0-15.0) L 02/13/22 05:20 Hct 24.7 % (36.0-45.0) L 02/13/22 05:20 Plt Count 549 K/uL (152-406) H 02/13/22 05:20 Sodium 141 mmol/L (136-145) 02/12/22 05:00 Potassium 4.3 mmol/L (3.5-5.1) 02/12/22 05:00 BUN 18 mg/dL (7-18) 02/12/22 05:00 Creatinine 0.55 mg/dL (0.55-1.3) 02/12/22 05:00 Glucose 131 mg/dL (74-106) H 02/12/22 05:00 Phosphorus 3.1 mg/dL (2.5-4.9) 02/07/22 03:38 Magnesium 2.0 mg/dL (1.8-2.4) 02/12/22 05:00 Home Medications: Docosahexanoic AC/Epa [Fish Oil 1,000 MG*] 1,000 mg PO DAILY 07/25/20 Folic Acid 1 mg PO DAILY 07/25/20 Levothyroxine [Synthroid*] 88 mcg PO [id number] 07/25/20 Methotrexate Sodium [Methotrexate] 25 mg PO EVERY 7TH DAY 07/25/20 Potassium Citrate [Potassium Citrate ER] 10 meq PO DAILY 07/25/20 predniSONE [Prednisone*] 2 mg PO DAILY 07/25/20 ARIPiprazole [Aripiprazole] 1 tab PO BEDTIME 02/06/22 Acetaminophen 2 tab PO PRN 02/06/22 Atorvastatin Calcium 5 mg PO DAILY 02/06/22 Carboxymethylcellulose Sodium [Lubricating Plus] 1 drop EACH EYE BID 02/06/22 Docusate/Senna [Senokot-S*] 2 tab PO BEDTIME 02/06/22 Donepezil HCl [Aricept] 02/06/22 Famotidine [Pepcid] 20 mg PO BEDTIME 02/06/22 Melatonin [Melatin] 1 tab PO BEDTIME 02/06/22 Polyethylene Glycol 3350 [Miralax] 1 packet PO DAILY 02/06/22 Sertraline HCl 1 tab PO DAILY 02/06/22 Albuterol Neb [Proventil 0.083% Neb Soln] 2.5 mg NEB [id number] PRN amp 02/13/22 Doxycycline Hyclate 100 mg PO BID 7 Days #14 tablet 02/13/22 Ferrous Sulfate [Iron] 325 mg PO DAILY 30 Days #30 tablet 02/13/22 Spironolactone [Aldactone*] 25 mg PO DAILY tab 02/13/22 levoFLOXacin [Levaquin*] 750 mg PO DAILY 7 Days #7 tab 02/13/22 predniSONE [Deltasone*] 10 mg PO BID 7 Days #14 tab 02/13/22 New Medications: predniSONE [Deltasone*] 10 mg PO BID 7 Days #14 tab Doxycycline Hyclate 100 mg PO BID 7 Days #14 tablet Ferrous Sulfate [Iron] 325 mg PO DAILY 30 Days #30 tablet levoFLOXacin [Levaquin*] 750 mg PO DAILY 7 Days #7 tab Physician Discharge Instructions: Patient was empirically treated with IV antibiotics for pneumonia. She had slight worsening of symptoms on 02/08 into 02/09, so antibiotics were broadened out to meropenem and vancomycin. Pulmonology was consulted. Patient also received steroids and diuretics. Patient's home lasix was discontinued given persistent hypokalemia and she was maintained on spironolactone. Patient had significant improvement with above treatment. Pulmonology de- escalated antibiotics on 02/10 to levaquin and doxycycline. Patient continued to improve with oxygen supplementation decreasing each day. Chest x-ray with slow improvement. There was concern for possible aspiration pneumonia. Speech evaluated patient, who never showed overt signs of aspiration. Her diet was advanced slowly, which patient tolerated well. Patient was noted to be anemic on admission. Workup consistent with moderate- severe iron deficiency and of chronic disease. She received 2 doses of 125mg IV iron on 02/12 and 02/13. Hemoglobin remained stable, and improved on day of discharge. She is to continue on PO iron supplementation. Patient with low-normal blood pressure readings, stable. Continue to monitor and balance with fluid status for adjustments of diuretic. Time spent managing pt's care (in minutes): 45
[2022-02-13] MEDS ORDERED: FUROSEMIDE 40 MG TABLET PO SCH (09:00)
[2022-02-13] MEDS: ENOXAPARIN 40 MG/0.4 ML SQ SCH (09:07)
[2022-02-13] MEDS: SERTRALINE HCL 100 MG TAB PO SCH (09:08)
[2022-02-13] MEDS: POTASSIUM 25 MEQ EFFERV TAB PO SCH (09:08)
[2022-02-13] MEDS: DOXYCYCLINE 100 MG CAP PO SCH (09:08)
[2022-02-13] MEDS: predniSONE 10 MG TAB PO SCH (09:08)
[2022-02-13] MEDS: FOLIC ACID 1 MG TABLET PO SCH (09:08)
[2022-02-13] MEDS: SPIRONOLACTONE 25 MG TABLET PO SCH (09:08)
[2022-02-13] MEDS: ATORVASTATIN 10 MG TAB PO SCH (09:08)
[2022-02-13] MEDS: levoFLOXacin 750 MG TAB PO SCH (09:08)
[2022-02-13 10:58] VITALS: O2SAT 98
[2022-02-13 12:25] VITALS: BP 140/58; TEMP 97.9
== END 2022-02-13 12:55 | DRG 193 ==
LOC: ER 08:40 → ERHOLD 11:58 → 2ND 18:37
PROVIDERS: ADMIT Internal Medicine; ATTEND Internal Medicine
DX: J18.9 Pneumonia, unspecified organism (principal); J96.01 Acute respiratory failure with hypoxia; F03.91 Unspecified dementia, unspecified severity, with behavioral disturbance; J81.1 Chronic pulmonary edema; I10 Essential (primary) hypertension; M06.9 Rheumatoid arthritis, unspecified; D50.9 Iron deficiency anemia, unspecified; E87.6 Hypokalemia; D63.8 Anemia in other chronic diseases classified elsewhere; R01.1 Cardiac murmur, unspecified; Z88.2 Allergy status to sulfonamides; E78.5 Hyperlipidemia, unspecified; Z20.822 Contact with and (suspected) exposure to COVID-19
CPT/HCPCS: 0240U; 36415; 51702; 71045; 80048; 81003; 82607; 82728; 82805; 83540; 83605; 83735; 83880; 84100; 84132; 84145; 84443; 84466; 84484; 85025; 85027; 85044; 87040; 92610; 93005; 94002; 94003; 94640; 94760; 96365; 97110; 97161; 97530; 99285; J0456; J1630; J1650; J1940; J2185; J2405; J2543; J2916; J2920; J3370; J3475; J3480; J7030; J7050; J7512

== ENCOUNTER 2022-03-30 20:56 | Emergency (ER) | payer OTHER ==
--- OUTSIDE RECORDS SUMMARY | 2022-03-30 20:59 | XMS REPORT | Continuity of Care Document ---
:1935 Author Organization [facility] t Address [address] [place] [address] [address]. [address] [place] [address] Care Team Providers Name Role Phone No Primary Care Physician Unavailable NIKOLAI Attending Clinician Unavailable Gayle Attending Clinician Unavailable Pretty-Mbayo_A_AH Attending Clinician Unavailable Pretty-Mbayo_A_AH Admitting Clinician Unavailable Payers Payer Name Policy Type Policy Number Effective Date Expiration Date S angela MEDICARE PART A [id number] 1999 [facility] B 00:00[id number] (MEDICARE REPLACEMENT/ADVANT AGE - HMO) [...] Practic 00 e Rheumatoid Rheumatoid Problem Active [facility] ill[facility] arthritis Arthritis 3-18 Fami ly 00:00: Practic 00 e Fall Fall Problem Active 2019- Village 3-18 Family 00:00: Practic 00 e [...] e ICS) Iodine Adverse Active Info Not Common Reaction Available [facility] Demerol Adverse Active Info Not Common Reaction Available [facility] Social History Social Habit Start Date Stop Date Quantity Comments Source Exposure to SARS-CoV-2 Not sure [facility] (event) Sex Ass[birth year] At [birth year] [facility] 00:00:00 00:00:00 Smoking Status Start Date Stop Date Source Tobacco smoking consumption unknown [facility] Heavy Tobacco Smoker [facility] Practice Medications Ordered Filled Start Stop Current Ordering Indication Dosage Frequency Signature Comments Components Source Medication Medication Date Date Medication? Clinician (SIG) Name Name Meclizine Meclizine Yes Stan 1 tablet Common HCl HCl 2-17 Hernandez as needed Spirit 00:00: [facility] Blood Blood 2018- Yes Stan as Common Glucose Glucose 0-13 Hernandez directed [facility] Test Strip Test Strip 00:00: (DISPENSE - BLOOD [facility] TEST Medical STRIPS OF Center RECORD) Pravastatin Pravastatin Yes Stan 1 tablet Common Sodium Sodium Hernandez in evening [facility] Prednisone Prednisone Yes Stan 1 tablet Common Hernandez with food Spirit or milk - [facility]I [facility] Furosemide Furosemide Yes Stan 1 tablet Common Hernandez [facility] Synthroid Synthroid Yes Stan 1 tablet Common Hernandez on an Spirit empty - [facility]I stomach in [facility] Sertraline Sertraline Yes Stan 1 tablet Common HCl HCl Hernandez [facility] Methotrexat Methotrexat Yes Stan as Common e e Hernandez directed [facility] Lisinopril Lisinopril Yes Stan 1 tablet Common Hernandez [facility] furosemide furosemide No 1 Q1D furosemide [facility] 40 mg 40 mg 40 mg Family tablet Take tablet Take tablet Practic 1 tablet 1 tablet Take 1 e every day every day tablet by oral by oral every day route. route. by oral route. levothyroxi levothyroxi No 1capsul Q1D levothyrox [facility] ne 88 mcg ne 88 mcg e(s) ine 88 mcg Family capsule capsule capsule Practi c Take 1 Take 1 Take 1 e capsule capsule capsule every day every day every day by oral by oral by oral route route route before before before meals. meals. meals. lisinopril lisinopril No 1 Q1D lisinopril [facility] 20 mg 20 mg 20 mg Family tablet Take tablet Take tablet Practic 1 tablet 1 tablet Take 1 e every day every day tablet by oral by oral every day route. route. by oral route. methotrexat methotrexat No 10mg Q1W methotrexa [facility] e 2.5 mg e 2.5 mg te 2.5 mg Fa gage tablet Take tablet Take tablet Practic 10 mg every 10 mg every Take 10 mg e week by week by every week oral route. oral route. by oral route. pravastatin pravastatin No 1 [facility] mg n 20 mg Family tablet Take tablet Take tablet Practic 1 tablet 1 tablet Take 1 e every day every day tablet by oral by oral every day route. route. by oral route. Potassium Potassium Stan 1 capsule Common Chloride Chloride 11-14 Hernandez Spirit 00:00 - CHI :00 [facility] Immunizations Ordered Immunization Filled Immunization Date Status Commen ts Source Name Name Influenza A Influenza A 2019-08-01 Completed [facility] Jamarcusi ly monovalent (H5N1), monovalent (H5N1), 00:00:00 Practice ADJUVANTED-2013 ADJUVANTED-2012 pneumococcal pneumococcal 2017-09-01 [facility] polysaccharide PPV23 polysaccharide PPV23 00:00:00 Practice Vital Signs Vital Name Observation Time Observation Value Comments Source Height 2020-01-23 00:00:00 57 [in_i] [facility] Practice BMI (Body Mass 2020-01-23 00:00:00 29.9 kg/m2 [facility] Family Index[facility] Practice Body Weight 2020-01-23 00:00:00 138 [lb_av] [facility] Procedures Procedure Date / Time Performed Performing Clinician Cristian jez Procedure on Brain [facility] y Practice Uterine Myomectomy [place] F[facility] y Practice Spinal Disk Surgery [facility] Fami ly Add-on Practice Encounters Start End Encounter Admission Attending Care Care Encounter Source Date/Time Date/Time Type Type Clinicians Facility Department ID 2022-03-11 Outpatient [facility] [id number] [place] 08:13:43 [id number] [facility] 2021-12-08 Outpatient NIKOLAI, [facility] [id number] [place] 01:04:39 [facility] 2021-12-06 Outpatient NIKOLAI [facility] [id number] [place] 01:02:18 [facility] 2021-11-26 Outpatient Millender, STLMLC STLMLC [id number] Common 14:02:59 Yanira 98100 [facility] 2021-11-26 Outpatient Millender, STLMLC STLMLC [id number] Common 12:51:46 Yanira 34541 [facility] 2021-11-26 Outpatient Millender, STLMLC STLMLC [id number] 12:25:10 Yanira 25256 [facility] 2021-11-26 Outpatient Millender, STLMLC STLMLC [id number] Common 12:22:12 Yanira 03597 [facility] 2021-11-26 Outpatient Millender, STLMLC STLMLC [id number] Common 12:07:28 Yanira 11851 [facility] 2021-11-26 Outpatient Millender, STLMLC STLMLC [id number] Common 11:55:26 Yanira 74159 [facility] 2021-11-26 Outpatient Millender, STLMLC STLMLC [id number] Common 11:51:06 Yanira 32093 [facility] 2021-11-26 Outpatient Millender, STLMLC STLMLC [id number] Common 11:44:47 Yanira 36119 [facility] 2021-11-26 Outpatient Millender, STLMLC STLMLC [id number] Common 11:44:36 Yanira 34800 [facility] 2021-11-26 Outpatient Millender, STLMLC STLMLC [id number] Common 11:01:09 Yanira 44895 [facility] 2021-11-26 Outpatient Millender, STLMLC STLMLC [id number] Common 10:59:26 Yanira 05054 [facility] 2021-11-26 Outpatient Millender, STLMLC STLMLC [id number] Common 10:58:13 Yanira 27792 [facility] 2021-10-06 Outpatient [facility] [id number] [place] 11:50:29 Health 2021-10-09 2021-10-09 Office MALVIN Ratliff [id number] [place] 09:30:00 10:14:16 Visit Sudheer DELGADO [id number] [facility] [id number] 2021-03-10 2021-03-10 Outpatient STLMLC STLMLC [id number] Common 00:00:00 00:00:00 [facility] 2021-03-05 2021-03-05 Outpatient STLMLC STLMLC [id number] Common 00:00:00 00:00:00 [facility] 2021-02-17 2021-02-17 Outpatient STLMLC STLMLC [id number] Common 00:00:00 00:00:00 [facility] 2021-02-12 2021-02-12 Outpatient STLMLC STLMLC [id number] Common 00:00:00 00:00:00 [facility] 2020-11-21 2020-11-21 Outpatient STLMLC STLMLC [id number] Common 00:00:00 00:00:00 [facility] 2020-11-19 2020-11-19 Outpatient STLMLC STLMLC [id number] Common 00:00:00 00:00:00 [facility] 2020-11-14 2020-11-14 Outpatient STLMLC STLMLC [id number] Common 00:00:00 00:00:00 [facility] 2020-09-23 2020-09-23 Outpatient STLMLC STLMLC [id number] Common 00:00:00 00:00:00 [facility] 2020-09-20 2020-09-20 Outpatient STLMLC STLMLC [id number] Common 00:00:00 00:00:00 [facility] 2020-09-04 2020-09-04 Outpatient STLMLC STLMLC [id number] Common 00:00:00 00:00:00 [facility] 2020-08-20 2020-08-20 Outpatient STLMLC STLMLC [id number] Common 00:00:00 00:00:00 [facility] 2020-08-01 2020-08-01 Outpatient Pretty-Mbayo VFP VF [id number] [facility] 06:04:00 06:04:00 _A_AH [id number] Family Practic e 2020-07-24 2020-07-24 Outpatient STLMLC STLMLC [id number] Common 00:00:00 00:00:00 [facility] 2020-07-24 2020-07-24 Outpatient STLMLC STLMLC [id number] Common 00:00:00 00:00:00 [facility] 2020-07-10 2020-07-10 [facility] [id number] Common 15:15:00 15:15:00 [facility] 2020-07-01 2020-07-01 [facility] [id number] Common 15:14:00 15:14:00 [facility] 2020-05-09 2020-05-09 [facility] [id number] Common 13:00:00 13:00:00 [facility] [address] [facility] 2020-05-08 2020-05-08 [facility] [id number] Common 13:50:00 13:50:00 [facility] [address] [facility] Family [facility] 2020-02-21 2020-02-21 Outpatient Pretty-Mbayo VFP VFP [id number] [facility] 06:05:00 06:05:00 _A_AH [id number] Family Practic e 2020-02-08 2020-02-08 [facility] [id number] Common 13:15:00 13:15:[address] [facility] [address] [facility] 2020-01-23 2020-01-23 Cheryl [facility] [place] - [id number] V illage 00:00:00 00:00:00 PrettyYan [facility] Fam geo o, CLEAT THROWER: Medical - Practi c [address] _[email or web address]_ e [facility], [address], [place] [address] , Ph. 2020-01-17 2020-01-17 Outpatient Syd [facility] [id number] [facility] 06:17:00 06:17:00 _A_AH [id number] Family Practic e 2020-01-15 2020-01-15 [facility] [id number] Common 15:01:00 15:01:00 t [facility] [address] [facility] it Road [facility] 2019-12-18 2019-12-18 [facility] [id number] Common 10:45:00 10:45:[address] [facility] [address] [facility] 2019-11-16 2019-11-16 [facility] [id number] Common 10:30:00 10:30:[address] [facility] [address] [facility] 2019-11-09 2019-11-09 Out[facility] [id number] Common 13:45:00 13:45:[address] [facility] [address] [facility] Results This patient has no known results.
--- NOTE | 2022-03-30 21:49 | RAD REPORT ---
EXAM DESCRIPTION: CT - CTHCSPWOC - 03/30/2022 9:38 pm CLINICAL HISTORY: Trauma, head and neck injury. fall COMPARISON: <Comparisons> TECHNIQUE: Axial 5 mm thick images of the head were obtained. Axial 2 mm thick images of the cervical spine were obtained with sagittal and coronal reconstruction images generated and reviewed. All CT scans are performed using dose optimization technique as appropriate and may include automated exposure control or mA/KV adjustment according to patient size. FINDINGS: CT HEAD WITHOUT CONTRAST: No acute hemorrhage, hydrocephalus or extra-axial collection is identified.No areas of brain edema or midline shift. Moderate chronic small vessel ischemic changes The paranasal sinuses and mastoids are clear.The calvarium is intact. Calcified meningioma along the right parietal calvarium is unchanged. CT CERVICAL SPINE WITHOUT CONTRAST: No fracture or subluxation.No prevertebral soft tissues swelling is identified. Status post C5 throug h C7 ACDF. IMPRESSION: No acute intracranial or cervical spine findings.
[2022-03-31] MEDS ORDERED: DERMABOND SKIN ADHESIVE TOP ONE (00:41)
--- NOTE | 2022-03-31 01:56 | ER ---
Nurse's Notes [facility] Name: Francy Griffiths Age: 86 yrs Sex: Female : 1935 Arrival Date: 03/30/2022 Time: 21:01 Bed 2 Private MD: Diagnosis: Fall from non-moving wheelchair;Facial Lacerartion Presentation: 03/30 21:01 Chief complaint: EMS states: [facility] on the floor in hallway [facility] bleeding ke1 from right eyebrow cut. Coronavirus screen: Vaccine status:. 21:01 Method Of Arrival: EMS: [facility] ke1 21:16 Risk Assessment: Do you want to hurt yourself or someone else? Patient reports no ke1 desire to harm self or others. Onset of symptoms was March 30, 2022 at 20:30. 21:16 Acuity: DIONTE 3 ke1 21:25 Care prior to arrival: None. Mechanism of Injury: Fall unwitnessed fall. Trauma event ke1 details: Injury occurred: jail. 23:24 Initial Sepsis Screen: Does the patient meet any 2 criteria? No. Patient's initial ke1 sepsis screen is negative. Does the patient have a suspected source of infection? No. Patient's initial sepsis screen is negative. 23:24 Ebola Screen: No symptoms or risks identified at this time. ke1 Triage Assessment: 21:18 General: Appears in no apparent distress. Behavior is. ke1 Trauma Activation: Physician: ED Physician; Name: lalita; Notified At: 21:00; Arrived At: Physician: General Surgeon; Name: ; Notified At: 21:00; Arrived At: Physician: Radiology; Name: ; Notified At: 21:00; Arrived At: Physician: Respiratory; Name: ; Notified At: 21:00; Arrived At: Physician: Lab; Name: ; Notified At: 21:00; Arrived At: Historical: - Allergies: 21:17 Codeine; ke1 21:17 Demerol; ke1 21:17 Iodine; ke1 21:17 Morphine; ke1 21:17 Shellfish Containing Products; ke1 21:17 Sulfa (Sulfonamide Antibiotics); ke1 - PMHx: 21:17 BRADYCARDIA; Dementia; depressive disorder; DNR; Gastroesophageal reflux disease; ke1 Hereditary factor VIII Deficiency; Hypertensive disorder; Hypothyroidism; insomnia; TIA; - Immunization history:: Client reports receiving the 2nd dose of the Covid vaccine. - Immunization history: Last tetanus immunization: unknown. - Social history:: Smoking status: Patient denies any tobacco usage or history of. Screenin:22 Abuse screen: Denies threats or abuse. Tuberculosis screening: No symptoms or risk ke1 factors identified. 21:24 Fall Risk Fall in past 12 months (25 points). Secondary diagnosis (15 points) dementia, ke1 No IV (0 pts). Ambulatory Aid- Furniture (30 pts.). Gait- Impaired (20 pts.). Mental Status- Overestimates/Forgets Limitations (15 pts.). Total Lau Fall Scale indicates High Risk Score (45 or more points). Fall prevention measures have been instituted. Side Rails Up X 2 Placed Close to Nursing Station Frequent Obs/Assessments Occuring. 23:25 Nutritional screening: No deficits noted. ke1 Primary Survey: 21:19 NO uncontrolled hemorrhage observed. A: The client is alert. Airway: patent. ke1 Breathing/Chest: Respiratory effort: spontaneous, unlabored. Circulation: Pulses: palpable right radial artery and left radial artery. Disability Client is alert. Exposure/Environment: There is no evidence of uncontrolled external bleeding. Reassessment Alertness and Airway: Airway Patent Breathing: Respiratory effort Spontaneous Unlabored Circulation: Heart tones Present Disability: Pupils Pupils are equal, round, reactive to light and accomodation. Alert. Secondary Survey: 21:20 HEENT: Head Other eyebrow laceration. Gastrointestinal: Abdomen is soft, non-distended. ke1 : Musculoskeletal: Capillary refill < 3 seconds, Bony deformity noted of right hand and left hand contractures. Assessment: 21:18 General: Appears in no apparent distress. General: Behavior is inappropriate for age. ke1 Pain: Unable to use pain scale. FLACC scale score is 0 out of 10. Neuro: Yañez Agitation-Sedation Scale (RASS): 0 - Alert and Calm. 03/31 00:11 Reassessment: Spoke with Julia Mar LVN at [facility], updated on patient status. lp1 00:59 Reassessment: son contact : [phone] Shaq. ke1 02:21 Reassessment: report called and given to Manuel BOYKIN at [facility]. ke1 Vital Signs: 03/30 21:01 BP 120 / 62; Pulse 53; Resp 18; Pulse Ox 98.2% ; ke1 23:25 BP 100 / 85; Pulse 51; Resp 16; ke1 03/31 02:12 BP 111 / 81; Pulse 56; Resp 18; Pulse Ox 93% on R/A; ke1 Lavelle Coma Score: 03/30 21:22 Eye Response: spontaneous(4). Verbal Response: confused(4). Motor Response: obeys ke1 commands(6). Total: 14. Trauma Score (Adult): 21:22 Eye Response: spontaneous(1); Verbal Response: confused(1); Motor Response: obeys ke1 commands(2); Systolic BP: > 89 mm Hg(4); Respiratory Rate: 10 to 29 per min(4); Lavelle Score: 14; Trauma Score: 12 ED Course: 21:01 Patient arrived in ED. ke1 21:01 Isela Briseno RN is Primary Nurse. ke1 21:02 Ramirez Villa MD is Attending Physician. 7 21:17 Triage completed. ke1 21:24 Arm band placed on right wrist. ke1 21:40 CT Head C Spine In Process Unspecified. EDMS 23:24 No provider procedures requiring assistance completed. ke1 23:25 Placed in gown. Bed in low position. Call light in reach. Side rails up X2. ke1 23:25 Patient maintains SpO2 saturation greater than 95% on room air. ke1 03/31 02:25 Thermoregulation: warm blanket given to patient. ke1 02:54 Patient did not have IV access during this emergency room visit. ke1 Administered Medications: No medications were administered Medication: 02:24 VIS not applicable for this client. ke1 Intake: 02:54 PO: 0ml; Total: 0ml. ke1 Output: 02:54 Urine: 0ml; Total: 0ml. ke1 Outcome: 01:56 Discharge ordered by . 7 02:24 Discharged to ke1 02:[address] Report called to manuel boykin ke1 02:52 Condition: good 02:52 Discharge instructions given to EMS. 02:54 Patient left the ED. ke1 Signatures: Dispatcher [employer] EDMS Manjula Stanley RN RN lp1 Ramirez Villa MD MD 7 Isela Briseno RN RN ke1 Corrections: (The following items were deleted from the chart) 03/30 21:58 21:17 PMHx: Rheumatoid Arthritis; ke1 ke1 23:24 21:01 BP 120 / 62; Pulse 53bpm; Resp 18bpm; ke1 ke1
--- NOTE | 2022-03-31 01:56 | EDPHYS ---
Physician Documentation [facility] Name: Francy Griffiths Age: 86 yrs Sex: Female : 1935 Arrival Date: 03/30/2022 Time: 21:01 Bed 2 Private MD: ED Physician Ramirez Villa HPI: 03/30 21:30 This 86 yrs old Female presents to ER via EMS with complaints of Fall. mh7 21:30 Details of fall: The patient fell from seated position, out of a wheelchair. Onset: The mh7 symptoms/episode began/occurred today. Associated injuries: The patient sustained injury to the head, abrasion, contusion, laceration, of the right eyebrow. Severity of symptoms: At their worst the symptoms were mild, earlier today, in the emergency department the symptoms are unchanged. Historical: - Allergies: 21:17 Codeine; ke1 21:17 Demerol; ke1 21:17 Iodine; ke1 21:17 Morphine; ke1 21:17 Shellfish Containing Products; ke1 21:17 Sulfa (Sulfonamide Antibiotics); ke1 - PMHx: 21:17 BRADYCARDIA; Dementia; depressive disorder; DNR; Gastroesophageal reflux disease; ke1 Hereditary factor VIII Deficiency; Hypertensive disorder; Hypothyroidism; insomnia; TIA; - Immunization history:: Client reports receiving the 2nd dose of the Covid vaccine. - Immunization history: Last tetanus immunization: unknown. - Social history:: Smoking status: Patient denies any tobacco usage or history of. ROS: 21:30 Unable to obtain ROS due to baseline dementia. 7 Exam: 21:30 Eyes: Pupils equal round and reactive to light, extra-ocular motions intact. Lids and mh7 lashes normal. Conjunctiva and sclera are non-icteric and not injected. Cornea within normal limits. Periorbital areas with no swelling, redness, or edema. ENT: Nares patent. No nasal discharge, no septal abnormalities noted. Tympanic membranes are normal and external auditory canals are clear. Oropharynx with no redness, swelling, or masses, exudates, or evidence of obstruction, uvula midline. Mucous membranes moist. Neck: Trachea midline, no thyromegaly or masses palpated, and no cervical lymphadenopathy. Supple, full range of motion without nuchal rigidity, or vertebral point tenderness. No Meningismus. Chest/axilla: Normal chest wall appearance and motion. Nontender with no deformity. No lesions are appreciated. 21:30 Respiratory: Lungs have equal breath sounds bilaterally, clear to auscultation and percussion. No rales, rhonchi or wheezes noted. No increased work of breathing, no retractions or nasal flaring. Abdomen/GI: Soft, non-tender, with normal bowel sounds. No distension or tympany. No guarding or rebound. No evidence of tenderness throughout. Back: No spinal tenderness. No costovertebral tenderness. Full range of motion. Skin: Warm, dry with normal turgor. Normal color with no rashes, no lesions, and no evidence of cellulitis. 21:30 Constitutional: The patient appears in no acute distress, baseline demetia 21:30 Cardiovascular: Rate: bradycardic, Rhythm: regular, Pulses: no pulse deficits are appreciated, Heart sounds: normal, normal S1and S2, Edema: is not appreciated, JVD: is not appreciated. 21:30 Musculoskeletal/extremity: Nails: contractures. 21:30 Neuro: Orientation: unable to test, the patient has a history of dementia, Mentation: unable to test, the patient has a history of dementia, Memory: unable to test, the patient has a history of dementia, Cranial nerves: unable to test, the patient has a history of dementia, Cerebellar function: unable to test, the patient has a history of dementia, Motor: unable to test, the patient has a history of dementia, Sensation: no obvious gross deficits, Gait: not tested. seizure activity, is not displayed by the patient, Abnormal movements: there are no abnormal movements. Vital Signs: 21:01 BP 120 / 62; Pulse 53; Resp 18; Pulse Ox 98.2% ; ke1 23:25 BP 100 / 85; Pulse 51; Resp 16; ke1 03/31 02:12 BP 111 / 81; Pulse 56; Resp 18; Pulse Ox 93% on R/A; ke1 [place] Coma Score: 03/30 21:22 Eye Response: spontaneous(4). Verbal Response: confused(4). Motor Response: obeys ke1 commands(6). Total: 14. Trauma Score (Adult): 21:22 Eye Response: spontaneous(1); Verbal Response: confused(1); Motor Response: obeys ke1 commands(2); Systolic BP: > 89 mm Hg(4); Respiratory Rate: 10 to 29 per min(4); [place] Score: 14; Trauma Score: 12 Laceration: 03/31 01:53 Wound Repair of 2cm ( 0.8in ) subcutaneous laceration to right forehead above eyebrow. mh7 Linear shaped.. Distal neuro/vascular/tendon intact. Anesthesia: Local anesthetic administered with 1% lidocaine. Wound prep: Extensive cleansing with hibiclenz by nurse, Wound irrigation with saline by nurse, Wound explored extensively, Copious irrigation. Skin closed with 1-0 Adhesive skin closure using simple sutures and sterile technique. Patient tolerated well. MDM: 01:56 Patient medically screened. [facility] 03/30 21:11 Order name: CT Head C Spine; Complete Time: 22:36 ke1 03/31 00:36 Order name: Dermabond; Complete Time: 02:26 ke1 Administered Medications: No medications were administered Disposition Summary: 03/31/22 01:56 Discharge Ordered Location: Home [facility] Problem: [facility] Symptoms: have improved [facility] Condition: Stable mh7 Diagnosis - Fall from non-moving wheelchair mh7 - Facial Lacerartion [facility] Followup: [facility] - With: Private Physician - When: 1 - 2 days - Reason: Worsening of condition, Recheck today's complaints, Continuance of care, Re-evaluation by your physician Discharge Instructions: - Discharge Summary Sheet [facility] - Facial Laceration, [id number] [facility] - Fall Prevention in the Home, Adult, [id number] [facility] - Sutures, [place], or Adhesive Wound Closure, [id number] [facility] Forms: - Medication Reconciliation Form [facility] - Thank You Letter [facility] - Antibiotic Education [facility] - Prescription Opioid Use [facility] Signatures: Dispatcher [employer] Ramirez Torres MD MD 7 Isela Briseno RN RN ke1 Corrections: (The following items were deleted from the chart) 03/30 21:58 21:17 PMHx: Rheumatoid Arthritis; ke1 ke1
[2022-03-31 03:12] VITALS: BP 111/81; O2SAT 93
== END 2022-03-31 02:54 | disposition home or self-care (01) ==
LOC: ER 20:56
PROC: 0JQ10ZZ Repair Face Subcutaneous Tissue and Fascia, Open Approach (ICD-10-PCS; principal; 2022-03-31)
DX: S01.81XA Laceration without foreign body of other part of head, initial encounter (principal); W05.0XXA Fall from non-moving wheelchair, initial encounter; F03.90 Unspecified dementia, unspecified severity, without behavioral disturbance, psychotic disturbance, mood disturbance, and anxiety; I10 Essential (primary) hypertension; Z86.73 Personal history of transient ischemic attack (TIA), and cerebral infarction without residual deficits; Z88.2 Allergy status to sulfonamides; Z88.5 Allergy status to narcotic agent; Z91.013 Allergy to seafood; Z91.048 Other nonmedicinal substance allergy status
CPT/HCPCS: 70450; 72125; 99284